=== PATIENT | male | born 1930 | race Caucasian/White ===

== ENCOUNTER → 2016-08-13 | Outpatient (CLI) | payer MEDICARE ==
[~2016-08-13] MED LIST: ACEB200C; ACET-2469 PO; ACET325T49 PO; ACYC2CRE; ASP81TEC; ATOR40TA70 PO; ATOR80TA; ATOR80TA PO; BUDE10.2 IH; CLOP75TA; COLC0.6T7 PO; CYAN10007 PO; D50KC; D50KC PO; DOXY-13; FOLI1TAB24 PO; FRSM40T PO; FURO20TA4; GABA-490 PO; GABA600T PO; GLIM2TAB; GUAI5SYR PO; GUAI600T43 PO; HYDR-3812 PO; INSU100C4; INSU100I10; INSU100I10 SQ; IPRA3AMP INH; MAGN400T6; MAGN400T6 PO; METH454P2 PO; MGX400T; MGX400T PO; NEBU-140 MC; NYST1000; OMEP20CA6 PO; OMG1KC PO; PNT40TEC PO; POLY119P5 PO; POTA20TA15 PO; PRED10TA22 PO; SENN1TAB27; SUPER BEET PO; TAMS0.4C2 PO; TMSL.4C PO; WARF2TAB PO; WARF2TAB8 PO; WARF4TAB7 PO; WARF4TAB9 PO; WARF5TAB PO; [UNRECOGNIZED DRUG - OTHER]
--- OUTSIDE RECORDS SUMMARY | 2016-08-13 13:26 | XMS REPORT | Continuity of Care Document ---
Author Author [facility] Organization [facility] Address Unknown Phone Unavailable Care Team Providers Care Construction Project Assistant Name Role Phone Nga Sky PCP [phone] Source Comments Some departments are not documenting in the electronic medical record. If you do not see the information that you expected, contact Release of Information in the Health Information Management department at [phone] for further assistance in locating additional records.[facility] Active Allergies and Adverse Reactions Allergen Noted Date Severity Reactions Comments Iodine 02/28/2015 High SYNCOPE Januvia 02/28/2015 Low SEE COMMENTS "Kidney function quit" Current Medications Prescription Sig. Disp. Refills Start End Date Status Date warfarin (COUMADIN) 4 mg Take 4 mg by mouth daily. Active tablet 5 days a week warfarin (COUMADIN) 2 mg Take 2 mg by mouth daily. Active tablet and . INSULIN Inject 36 Units into Active GLARGINE,HUM.REC.ANLOG area(s) as directed daily (LANTUS SOLOSTAR SC) with breakfast. atorvastatin (LIPITOR) 40 Take 40 mg by mouth Active mg tablet daily. furosemide (LASIX) 40 mg Take 40 mg by mouth Active tablet daily. 80 mg on and Sat. 40mg all other days potassium chloride SR Take 20 mEq by mouth Active (K-DUR) 20 mEq tablet daily. magnesium oxide (MAG-OX) Take 400 mg by mouth Active 400 mg tablet daily. DOCOSAHEXANOIC ACID/EPA Take by mouth daily. Active (FISH OIL PO) cholecalciferol (VITAMIN Take 1,000 Units by mouth Active D-3) 1,000 units tablet daily. omeprazole DR(+) Take 20 mg by mouth Active (PRILOSEC) 20 mg capsule daily. cyanocobalamin (VITAMIN Take 2,000 mcg by mouth Active B-12) 1,000 mcg tablet daily. enoxaparin (LOVENOX) 100 Inject 1 mg/kg into Active mg syrg area(s) as directed daily. 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 Social History Tobacco Use Types Packs/Day Years Used Date Current Some Day Smoker Smokeless Tobacco: Never Used Alcohol Use Drinks/Week oz/Week Comments No 0 Standard 0.0 drinks or equivalent Last Filed Vital Signs Vital Sign Reading Time Taken Blood Pressure 115/61 08/16/2015 10:12 AM THRESHING MACHINE OPERATOR Pulse 61 08/16/2015 10:12 AM THRESHING MACHINE OPERATOR Temperature 36.4 C (97.5 F) 08/16/2015 10:12 AM THRESHING MACHINE OPERATOR Respiratory Rate 18 08/16/2015 10:12 AM THRESHING MACHINE OPERATOR Height 1.829 m (6') 08/16/2015 10:12 AM THRESHING MACHINE OPERATOR Weight 95.255 kg (210 lb) 08/16/2015 10:12 AM THRESHING MACHINE OPERATOR Body Mass Index 28.47 08/16/2015 10:12 AM THRESHING MACHINE OPERATOR Oxygen Saturation 94% 08/16/2015 10:12 AM THRESHING MACHINE OPERATOR Plan of Care Health Maintenance Due Date Last Done Comments Physical (Comprehensive) 11/23/1937 Exam Pertussis Vaccine 11/23/1942 Tetanus Vaccine 11/23/1948 Dilated Eye Exam 11/23/1949 Foot Exam 11/23/1949 Hba1c 11/23/1949 Microalbumin 11/23/1949 Shingles Vaccine 1991 Prevnar/Pneumovax (#1) 11/23/1996 Influenza Vaccine 04/05/2016 Results from Last 3 Months Not on file
--- NOTE | 2016-08-13 17:28 | Diagnostic Imaging Report ---
Exam: 3 views of the left little finger. Indication: Fall. Findings: There is no fracture, dislocation or radiopaque foreign body seen. There is mild subchondral sclerotic change and small osteophyte formation at the distal interphalangeal joint noted. Impression: Mild degenerative changes. No fracture seen. Dictated by: Dictated on workstation # [id number]
== END ==
LOC: RAD 13:21
PROVIDERS: ATTEND Nurse Practitioner Family
DX: M79.645 Pain in left finger(s) (principal)
CPT/HCPCS: 73140

== ENCOUNTER → 2016-09-03 | Outpatient (CLI) | payer MEDICARE ==
--- OUTSIDE RECORDS SUMMARY | 2016-09-03 11:22 | XMS REPORT | Continuity of Care Document ---
Author Author [facility] Organization [facility] Address Unknown Phone Unavailable Care Team Providers Care Job Coach/Job Developer Name Role Phone Nga Sky PCP [phone] Source Comments Some departments are not documenting in the electronic medical record. If you do not see the information that you expected, contact Release of Information in the Health Information Management department at [phone] for further assistance in locating additional records.[facility] Active Allergies and Adverse Reactions Allergen Noted [...] 16 Active Problems Problem Noted Date Paraparesis ([facility] 07/19/2015 Myelopathy ([facility]) 07/19/2015 Abnormal MRI, thoracic spine 07/19/2015 Incontinence [...] Taken Blood Pressure 115/61 08/16/2015 10:12 AM ROLLING DOWN MACHINE OPERATOR Pulse 61 08/16/2015 10:12 AM ROLLING DOWN MACHINE OPERATOR Temperature 36.4 C (97.5 F) 08/16/2015 10:12 AM ROLLING DOWN MACHINE OPERATOR Respiratory Rate 18 08/16/2015 10:12 AM ROLLING DOWN MACHINE OPERATOR Height 1.829 m (6') 08/16/2015 10:12 AM ROLLING DOWN MACHINE OPERATOR Weight 95.255 kg (210 lb) 08/16/2015 10:12 AM ROLLING DOWN MACHINE OPERATOR Body Mass Index 28.47 08/16/2015 10:12 AM ROLLING DOWN MACHINE OPERATOR Oxygen Saturation 94% 08/16/2015 10:12 AM ROLLING DOWN MACHINE OPERATOR Plan of Care Health Maintenance Due Date Last Done Comments Physical (Comprehensive) 11/23/1937 Exam Pertussis Vaccine 11/23/1942 Tetanus Vaccine 11/23/1948 Dilated Eye Exam 11/23/1949 Foot Exam 11/23/1949 Hba1c 11/23/1949 Microalbumin 11/23/1949 Shingles Vaccine 1991 Prevnar/Pneumovax (#1) 11/23/1996 Influenza Vaccine 04/05/2016 Results from Last 3 Months Not on file
--- NOTE | 2016-09-03 14:23 | Diagnostic Imaging Report ---
INDICATION: Left shoulder pain. FINDINGS: The humeral head is in normal articulation within glenoid fossa. Articulating surfaces appear normal. AC joint is in good alignment. No significant degenerative change noted. There are no fractures. No soft tissue calcifications. IMPRESSION: No significant abnormalities noted of the left shoulder. Dictated by: Dictated on workstation # [id number]
== END ==
LOC: RAD 11:17
PROVIDERS: ATTEND Nurse Practitioner Family
DX: M25.512 Pain in left shoulder (principal)
CPT/HCPCS: 73030

== ENCOUNTER → 2016-09-05 | Outpatient (CLI) | payer MEDICARE ==
--- OUTSIDE RECORDS SUMMARY | 2016-09-05 11:42 | XMS REPORT | Continuity of Care Document ---
Author Author [facility] Organization [facility] Address Unknown Phone Unavailable Care Team Providers Care Manager Call Center Name Role Phone Nga Sky PCP [phone] Source Comments Some departments are not documenting in the electronic medical record. If you do not see the information that you expected, contact Release of Information in the Health Information Management department at [phone] for further assistance in locating additional records.[facility] Active Allergies and Adverse Reactions Allergen [...] 16 Active Problems Problem Noted Date Paraparesis ([facility]) 07/19/2015 Myelopathy ([facility]) 07/19/2015 Abnormal MRI, thoracic spine [...] Taken Blood Pressure 115/61 08/16/2015 10:12 AM SHIP BOAT OR BARGE MATE Pulse 61 08/16/2015 10:12 AM SHIP BOAT OR BARGE MATE Temperature 36.4 C (97.5 F) 08/16/2015 10:12 AM SHIP BOAT OR BARGE MATE Respiratory Rate 18 08/16/2015 10:12 AM SHIP BOAT OR BARGE MATE Height 1.829 m (6') 08/16/2015 10:12 AM SHIP BOAT OR BARGE MATE Weight 95.255 kg (210 lb) 08/16/2015 10:12 AM SHIP BOAT OR BARGE MATE Body Mass Index 28.47 08/16/2015 10:12 AM SHIP BOAT OR BARGE MATE Oxygen Saturation 94% 08/16/2015 10:12 AM SHIP BOAT OR BARGE MATE Plan of Care Health Maintenance Due Date Last Done Comments Physical (Comprehensive) 11/23/1937 Exam Pertussis Vaccine 11/23/1942 Tetanus Vaccine 11/23/1948 Dilated Eye Exam 11/23/1949 Foot Exam 11/23/1949 Hba1c 11/23/1949 Microalbumin 11/23/1949 Shingles Vaccine 1991 Prevnar/Pneumovax (#1) 11/23/1996 Influenza Vaccine 04/05/2016 Results from Last 3 Months Not on file
--- NOTE | 2016-09-05 13:40 | Diagnostic Imaging Report ---
PROCEDURE: MRI left upper extremity without contrast. TECHNIQUE: Multiplanar, multisequence non contrast-enhanced MRI of the left upper extremity was accomplished. INDICATION: Left shoulder pain. FINDINGS: There is no os acromiale or Hill-Sachs deformity. The acromioclavicular joint demonstrates osteoarthritic changes with superior small osteophytes. No significant inferior osteophytes are seen. The long head biceps tendon appears to be displaced anteriorly and medially with significant fluid around the biceps tendon sheath. It demonstrates increased signal also compatible with a tear. It is poorly defined proximally. The subscapular tendon demonstrates a tear of its deep fibers worse in the superior portion of the tendon. The supraspinatus tendon demonstrates a near full-thickness tear with minimal intact fibers seen distally. The deep fibers are retracted up to 3 cm from the insertion site. Posteriorly, the infraspinatus tendon demonstrates a partial tear. There is increased signal in the superior labrum probably degenerative. There is mild atrophy of the supraspinatus and subscapularis muscles. There is distention of the subcoracoid bursa compatible with bursitis. IMPRESSION: 1. High-grade partial tears in the rotator cuff tendons. 2. Partial tear in the long head biceps tendon with subluxation of the tendon medially into the area of the torn distal subscapular tendon. 3. Subcoracoid bursitis. Dictated by: Dictated on workstation # [id number]
== END ==
LOC: RAD 11:39
PROVIDERS: ATTEND Nurse Practitioner Family
DX: M25.512 Pain in left shoulder (principal)
CPT/HCPCS: 73221

== ENCOUNTER 2016-09-27 12:48 | Outpatient (RCR) | payer MEDICARE ==
[~2016-09-27 12:48] MED LIST changes: -ACET-2469 PO; -ACET325T49 PO; -ATOR40TA70 PO; -BUDE10.2 IH; -CYAN10007 PO; -FOLI1TAB24 PO; -GUAI5SYR PO; -GUAI600T43 PO; -HYDR-3812 PO; -IPRA3AMP INH; -METH454P2 PO; -NEBU-140 MC; -POLY119P5 PO; -PRED10TA22 PO; -SUPER BEET PO; -TAMS0.4C2 PO; -WARF2TAB8 PO; -WARF4TAB9 PO
--- OUTSIDE RECORDS SUMMARY | 2016-09-27 12:51 | XMS REPORT | Continuity of Care Document ---
Author Author [facility] Organization [facility] Address Unknown Phone Unavailable Care Team Providers Care Heel Sander Rubber Name Role Phone Nga Sky PCP [phone] Source Comments Some departments are not documenting in the electronic medical record. If you do not see the information that you expected, contact Release of Information in the Health Information Management department at [phone] for further assistance in locating additional records.[facility] Active Allergies and Adverse [...] Active Problems Problem Noted Date Paraparesis ([facility]) 07/19/2015 Myelopathy ([facility]) 07/19/2015 Abnormal MRI, thoracic spine 07/19/2015 Incontinence [...] Taken Blood Pressure 115/61 08/16/2015 10:12 AM ASSET PROTECTION ASSISTANT Pulse 61 08/16/2015 10:12 AM ASSET PROTECTION ASSISTANT Temperature 36.4 C (97.5 F) 08/16/2015 10:12 AM ASSET PROTECTION ASSISTANT Respiratory Rate 18 08/16/2015 10:12 AM ASSET PROTECTION ASSISTANT Height 1.829 m (6') 08/16/2015 10:12 AM ASSET PROTECTION ASSISTANT Weight 95.255 kg (210 lb) 08/16/2015 10:12 AM ASSET PROTECTION ASSISTANT Body Mass Index 28.47 08/16/2015 10:12 AM ASSET PROTECTION ASSISTANT Oxygen Saturation 94% 08/16/2015 10:12 AM ASSET PROTECTION ASSISTANT Plan of Care Health Maintenance Due Date Last Done Comments Physical (Comprehensive) 11/23/1937 Exam Pertussis Vaccine 11/23/1942 Tetanus Vaccine 11/23/1948 Dilated Eye Exam 11/23/1949 Foot Exam 11/23/1949 Hba1c 11/23/1949 Microalbumin 11/23/1949 Shingles Vaccine 1991 Prevnar/Pneumovax (#1) 11/23/1996 Influenza Vaccine 04/05/2016 Results from Last 3 Months Not on file
[2016-10-30] MEDS ORDERED: ACET325T49 PO (14:12)
[2016-10-30] MEDS ORDERED: ATOR40TA70 PO (14:12)
[2016-10-30] MEDS ORDERED: TAMS0.4C2 PO (14:12)
[2016-10-30] MEDS ORDERED: CYAN10007 PO (14:12)
[2016-10-30] MEDS ORDERED: FOLI1TAB24 PO (14:12)
[2016-10-30] MEDS ORDERED: METH454P2 PO (14:12)
[2016-10-30] MEDS ORDERED: BUDE10.2 IH (14:12)
[2016-10-30] MEDS ORDERED: ACET-2469 PO (14:12)
[2016-10-30] MEDS ORDERED: POLY119P5 PO (14:12)
[2016-10-30] MEDS ORDERED: SUPER BEET PO (14:12)
[2016-10-30] MEDS ORDERED: GUAI5SYR PO (14:25)
[2016-10-30] MEDS ORDERED: HYDR-3812 PO (14:25)
[2016-10-30] MEDS ORDERED: GUAI600T43 PO (14:25)
[2016-10-30] MEDS ORDERED: WARF2TAB8 PO (14:25)
[2016-10-30] MEDS ORDERED: WARF4TAB9 PO (14:25)
[2016-11-05] MEDS ORDERED: NEBU-140 MC (09:34)
[2016-11-05] MEDS ORDERED: PRED10TA22 PO (09:34)
[2016-11-05] MEDS ORDERED: IPRA3AMP INH (09:34)
== END 2016-12-26 | disposition home or self-care (01) ==
LOC: ONC 12:48
PROVIDERS: ATTEND Internal Medicine Hematology & Oncology
DX: C81.10 Nodular sclerosis Hodgkin lymphoma, unspecified site (principal); Z23 Encounter for immunization; G62.9 Polyneuropathy, unspecified; I48.91 Unspecified atrial fibrillation; E11.22 Type 2 diabetes mellitus with diabetic chronic kidney disease; N18.3 Chronic kidney disease, stage 3 (moderate); Z92.21 Personal history of antineoplastic chemotherapy; Z79.899 Other long term (current) drug therapy
CPT/HCPCS: 99213

== ENCOUNTER → 2016-09-27 | Outpatient (CLI) | payer MEDICARE ==
--- OUTSIDE RECORDS SUMMARY | 2016-09-27 11:22 | XMS REPORT | Continuity of Care Document ---
Author Author [facility] Organization [facility] Address Unknown Phone Unavailable Care Team Providers Care Substation Supervisor Name Role Phone Nga Sky PCP [phone] Source Comments Some departments are not documenting in the electronic medical record. If you do not see the information that you expected, contact Release of Information in the Health Information Management department at [phone] for further assistance in locating additional records.[facility] Active Allergies and Adverse Reactions Allergen [...] Active Problems Problem Noted Date Paraparesis ([facility]) 07/19/2015 Myelopathy ([facility]) 07/19/2015 Abnormal MRI, thoracic spine 07/19/2015 Incontinence [...] Taken Blood Pressure 115/61 08/16/2015 10:12 AM OUTSIDE SALES REPRESENTATIVE Pulse 61 08/16/2015 10:12 AM OUTSIDE SALES REPRESENTATIVE Temperature 36.4 C (97.5 F) 08/16/2015 10:12 AM OUTSIDE SALES REPRESENTATIVE Respiratory Rate 18 08/16/2015 10:12 AM OUTSIDE SALES REPRESENTATIVE Height 1.829 m (6') 08/16/2015 10:12 AM OUTSIDE SALES REPRESENTATIVE Weight 95.255 kg (210 lb) 08/16/2015 10:12 AM OUTSIDE SALES REPRESENTATIVE Body Mass Index 28.47 08/16/2015 10:12 AM OUTSIDE SALES REPRESENTATIVE Oxygen Saturation 94% 08/16/2015 10:12 AM OUTSIDE SALES REPRESENTATIVE Plan of Care Health Maintenance Due Date Last Done Comments Physical (Comprehensive) 11/23/1937 Exam Pertussis Vaccine 11/23/1942 Tetanus Vaccine 11/23/1948 Dilated Eye Exam 11/23/1949 Foot Exam 11/23/1949 Hba1c 11/23/1949 Microalbumin 11/23/1949 Shingles Vaccine 1991 Prevnar/Pneumovax (#1) 11/23/1996 Influenza Vaccine 04/05/2016 Results from Last 3 Months Not on file
--- NOTE | 2016-09-27 12:59 | Diagnostic Imaging Report ---
PA and lateral chest at 11:40 a.m. INDICATION: Shortness of breath. FINDINGS: The heart size is within normal limits and stable when compared to 06/22/2016. The sternotomy wires and surgical clips noted previously are again evident and no different. The previous study did note minimal infiltrate in the left infrahilar region. That abnormal density has resolved. However, there is now a small area of increased density in the right infrahilar region on the PA view. This finding is difficult to identify with certainty on the lateral view and it is possible that this density could be secondary to superimposition. Even so, there may be an element of acute pneumonia/atelectasis in this area. Clinical follow-up is recommended. The lungs are otherwise clear. There is still no sign of a pleural effusion. Mediastinum is not widened. The osseous structures are intact. IMPRESSION: 1. There is a question of a small area of acute pneumonia/atelectasis in the right infrahilar region. Clinical follow-up is recommended. 2. There is no acute cardiopulmonary abnormality noted otherwise. Dictated by: Dictated on workstation # [id number]
== END ==
LOC: RAD 11:17
PROVIDERS: ATTEND Family Medicine
DX: R06.02 Shortness of breath (principal)
CPT/HCPCS: 71020

== ENCOUNTER 2016-10-04 21:08 | Emergency (ER) | payer MEDICARE ==
[~2016-10-04] VITALS: Ht 182.9 cm; Wt 113.4 kg
--- OUTSIDE RECORDS SUMMARY | 2016-10-04 21:13 | XMS REPORT | Continuity of Care Document ---
Author Author [facility] Organization [facility] Address Unknown Phone Unavailable Care Team Providers Care Sheriff'S Officer Name Role Phone Nga Sky PCP [phone] Source Comments Some departments are not documenting in the electronic medical record. If you do not see the information that you expected, contact Release of Information in the Health Information Management department at [phone] for further assistance in locating additional records.[facility] Active Allergies and Adverse Reactions Allergen [...] Active Problems Problem Noted Date Paraparesis ([facility]) 07/19/2015 Myelopathy ([facility]) 07/19/2015 Abnormal MRI, thoracic spine 07/19/2015 Incontinence [...] Taken Blood Pressure 115/61 08/16/2015 10:12 AM HUMAN RESOURCE ADVISER Pulse 61 08/16/2015 10:12 AM HUMAN RESOURCE ADVISER Temperature 36.4 C (97.5 F) 08/16/2015 10:12 AM HUMAN RESOURCE ADVISER Respiratory Rate 18 08/16/2015 10:12 AM HUMAN RESOURCE ADVISER Height 1.829 m (6') 08/16/2015 10:12 AM HUMAN RESOURCE ADVISER Weight 95.255 kg (210 lb) 08/16/2015 10:12 AM HUMAN RESOURCE ADVISER Body Mass Index 28.47 08/16/2015 10:12 AM HUMAN RESOURCE ADVISER Oxygen Saturation 94% 08/16/2015 10:12 AM HUMAN RESOURCE ADVISER Plan of Care Health Maintenance Due Date Last Done Comments Physical (Comprehensive) 11/23/1937 Exam Pertussis Vaccine 11/23/1942 Tetanus Vaccine 11/23/1948 Dilated Eye Exam 11/23/1949 Foot Exam 11/23/1949 Hba1c 11/23/1949 Microalbumin 11/23/1949 Shingles Vaccine 1991 Prevnar/Pneumovax (#1) 11/23/1996 Influenza Vaccine 04/05/2016 Results from Last 3 Months Not on file
[2016-10-04 21:38] LABS: BASOPHILS # (AUTO) 0.1 10^3/uL (0.0-0.1); BASOPHILS % (AUTO) 1 % (0-10); EOSINOPHILS # (AUTO) 0.5 10^3/uL (0.0-0.3); EOSINOPHILS % (AUTO) 6 % (0-10); LYMPHOCYTES # (AUTO) 2.1 X 10^3 (1.0-4.0); LYMPHOCYTES % (AUTO) 22 % (12-44); MEAN CORPUSCULAR HEMOGLOBIN 32 PG (25-34); MEAN CORPUSCULAR HGB CONC 33 G/DL (32-36); MEAN CORPUSCULAR VOLUME 99 FL (80-99); MEAN PLATELET VOLUME 10.5 FL (7.4-10.4); MONOCYTES # (AUTO) 1.4 X 10^3 (0.0-1.0); MONOCYTES % (AUTO) 14 % (0-12); NEUTROPHILS # (AUTO) 5.4 X 10^3 (1.8-7.8); NEUTROPHILS % (AUTO) 58 % (42-75); PLATELET COUNT 197 10^3/uL (130-400); RED CELL DISTRIBUTION WIDTH 14.9 % (10.0-14.5); WHITE BLOOD COUNT 9.4 10^3/uL (4.3-11.0)
[2016-10-04 21:46] LABS: INR 2.8 (0.8-1.4); PROTHROMBIN TIME PATIENT 29.3 SEC (12.2-14.7)
[2016-10-04 21:57] LABS: ALANINE AMINOTRANSFERASE 19 U/L (0-55); ALBUMIN 3.9 G/DL (3.2-4.5); ANION GAP 13 MMOL/L (5-14); ASPARTATE AMINO TRANSFERASE 21 U/L (5-34); BILIRUBIN,TOTAL 1.3 MG/DL (0.1-1.0); BLOOD UREA NITROGEN 24 MG/DL (7-18); BUN/CREATININE RATIO 21; CALCIUM 8.6 MG/DL (8.5-10.1); CARBON DIOXIDE 21 MMOL/L (21-32); CHLORIDE 103 MMOL/L (98-107); CREATININE SERUM 1.12 MG/DL (0.60-1.30); GFR ESTIMATED > 60; GLUCOSE 141 MG/DL (70-105); POTASSIUM 4.5 MMOL/L (3.6-5.0); SODIUM 137 MMOL/L (135-145); TOTAL PROTEIN 6.9 G/DL (6.4-8.2)
[2016-10-04 23:03] LABS: BILIRUBIN,URINE NEGATIVE (NEGATIVE); KETONES,URINE NEGATIVE (NEGATIVE); LEUKOCYTE ESTERASE ,URINE NEGATIVE (NEGATIVE); NITRITE,URINE NEGATIVE (NEGATIVE); PH,URINE 6.5 (5-9); PROTEIN,URINE 1+ (NEGATIVE); UROBILINOGEN,URINE NORMAL (NORMAL)
[2016-10-04 23:19] LABS: SQUAMOUS EPITHELIAL CELL,UR RARE /HPF
--- NOTE | 2016-10-05 00:18 | ED Fall/Injury ---
General Chief Complaint: Trauma-Non Activation Stated Complaint: FALL Nursing Triage Note: PT FALL AT [facility] [place] [facility]. SEE TRAUMA ASSESSMENT Source: patient Exam Limitations: no limitations History of Present Illness Time seen by provider: 21:10 Initial Comments This 85-year-old gentleman presents to the emergency room from the [facility] where he fell. 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 He walks with a walker but has significant neurologic deficits in the lower extremities, especially sensory deficit. Tonight he lost his balance and struck the right side of his head. He has a small knot on the right parietal scalp. He requested transfer to emergency room because he is concerned about possible bleed on Coumadin. He did not lose consciousness and he has no symptoms of concussion at this time. Patient also complains of left hip pain which is subacute from a fall about 2 weeks ago. He has significant bruising on the left hip. Location [facility] Occurred[facility] Occurred: just prior to arrival Injuries/Pain Location: head Loss of Consciousness: no loss of consciousness Allergies and Home Medications Allergies Coded Allergies: iodine (Unverified Allergy, Mild, 01/06/09) sitagliptin (Unverified Allergy, Mild, 02/27/09) Home Medications Atorvastatin Calcium 80 Mg Tablet 80 MG PO HS (Reported) Colchicine 0.6 Mg Tablet 0.6 MG PO DAILY PRN PRN GOUT PAIN (Reported) Ergocalciferol 50,000 Unit Capsule 50,000 UNIT PO SATURDAY @0900 (Reported) Furosemide 40 Mg Tab 40 MG PO DAILY (Reported) Gabapentin 600 Mg Tablet 600 MG PO BID (Reported) Insulin Glargine,Hum.rec.anlog 300 Unit/3 Ml Insuln.pen 36 UNITS SQ DAILY ( Reported) Magnesium Oxide 400 Mg Tab 400 MG PO DAILY (Reported) [place]ma 3 Polyunsat Fatty Acids 1,000 Mg Cap 1,000 MG PO DAILY (Reported) Omeprazole 20 Mg Capsule.dr 20 MG PO DAILY (Reported) Potassium Chloride 20 Meq Tab.prt.sr 20 MEQ PO DAILY (Reported) Tamsulosin Hcl 0.4 Mg Cap.er.24h 0.4 MG PO DAILY (Reported) Warfarin Sodium 4 Mg Tablet 2 MG PO , @ HS (Reported) TAKES 1/2 (4MG) TABLET Warfarin Sodium 4 Mg Tablet 4 MG PO CLEANING,MO,WE,FR,SA @HS (Reported) Constitutional: no symptoms reported Eyes: No Symptoms Reported Ears, Nose, Mouth, Throat: no symptoms reported Respiratory: no symptoms reported Cardiovascular: no symptoms reported Gastrointestinal: no symptoms reported Genitourinary: no symptoms reported Musculoskeletal: see HPI Skin: see HPI Psychiatric/Neurological: See HPI Past Jbuewrj-Lynxef-Ofxtxa Hx Patient Social History Alcohol Use: Denies Use Recreational Drug Use: No Smoking Status: Never a Smoker Former Smoker/When Quit: Nov 03, 2004 2nd Hand Smoke Exposure: No Recent Foreign Travel: No Contact w/Someone Who Travel: No Recent Infectious Disease Expo: No Recent Hopitalizations: Yes Immunizations Up To Date Tetanus Booster (TDap): Less than 5yrs Date of Pneumonia Vaccine: Jun 21, 2011 Date of Influenza Vaccine: Apr 20, 2014 Surgeries HX Surgeries: Yes (ABD AORTIC ANEURYSYM graft) Surgeries: CABG, Vasectomy Respiratory Hx Respiratory Disorders: Yes (COPD) Respiratory Disorders: Sleep Apnea, COPD Cardiovascular Hx Cardiac Disorders: Yes (QUAD BYPASS, AAA) Cardiac Disorders: Atrial Fibrillation, Chronic Edema/Swelling, Coronary Artery Disease, High Cholesterol, Hypertension, Peripheral Vascular Neurological Hx Neurological Disorders: Yes (NEUROPATHY BILAT. FEET) Neurological Disorders: Neuropathy, Spinal Cord Injury (History of transverse myelitis with significant lower extremity deficits) Reproductive System Hx Reproductive Disorders: No Sexually Transmitted Disease: No HIV/AIDS: No Genitourinary Hx Genitourinary Disorders: Yes Genitourinary Disorders: Renal Failure Gastrointestinal Hx Gastrointestinal Disorders: Yes Gastrointestinal Disorders: Gastroesophageal Reflux, Diverticulosis Musculoskeletal Hx Musculoskeletal Disorders: Yes Musculoskeletal Disorders: Arthritis, Gout Endocrine Hx Endocrine Disorders: Yes Endocrine Disorders: Diabetes, Insulin dep HEENT HX ENT Disorders: Yes Loss of Vision: Denies Hearing Impairment: Hard of Hearing Cancer Hx Cancer: Yes Cancer: Lymphoma Psychosocial Hx Psychiatric Problems: No Integumentary HX Skin/Integumentary Disorder: No Blood Transfusions Hx Blood Disorders: No Adverse Reaction to a Blood Tr: No Family Medical History Significant Family History: Heart Disease, Hypertension Physical Exam Vital Signs Vital Sign - Last 12Hours 10/04/16 10/05/16 21:08 01:06 Temp 97.2 Pulse 79 Resp 20 B/P 125/78 Pulse Ox 99 O2 Delivery Room Air O2 Flow Rate 3 Capillary Refill : Less Than 3 Seconds General Appearance: WD/WN no apparent distress HEENT: PERRL/EOMI other (Contusion with swelling and ecchymosis on the right parietal scalp) Neck: non-tender full range of motion supple normal inspection Cardiovascular: regular rate, rhythm no edema no murmur Respiratory: lungs clear normal breath sounds no respiratory distress no accessory muscle use Gastrointestinal: normal bowel sounds non tender soft Extremities: other (Mild pedal edema. Decreased sensation from the knees down. Tenderness and significant dark ecchymosis over the left hip. 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 as tested alert normal mood/affect oriented x 3 motor weakness (Lower extremities bilaterally, chronic) sensory deficit (Lower extremities bilaterally, chronic) Skin: normal color warm/dry ecchymosis [place] Coma Score Best Eye Response: (4) Open Spontaneously Best Verbal Response: (5) Oriented Best Motor Response: (6) Obeys Commands Zahida Total: 15 Progress/Results/Core Measures Results/Orders Lab Results Laboratory Tests Test 10/04/16 21:28 10/04/16 22:54 Range/Units Activated Partial Thromboplast Time 48 H 24-35 SEC Alanine Aminotransferase (ALT/SGPT) 19 0-55 U/L Albumin 3.9 3.2-4.5 G/DL Alkaline Phosphatase 95 40-136 U/L Anion Gap 13 5-14 MMOL/L Aspartate Amino Transf (AST/SGOT) 21 5-34 U/L BUN/Creatinine Ratio 21 Basophils # (Auto) 0.1 0.0-0.1 10^3/uL Basophils (%) (Auto) 1 0-10 % Blood Urea Nitrogen 24 H 7-18 MG/DL Calcium Level 8.6 8.5-10.1 MG/DL Carbon Dioxide Level 21 21-32 MMOL/L Chloride Level 103 98-107 MMOL/L Creatinine 1.12 0.60-1.30 MG/DL Eosinophils # (Auto) 0.5 H 0.0-0.3 10^3/uL Eosinophils (%) (Auto) 6 0-10 % Estimat Glomerular Filtration Rate > 60 Glucose Level 141 H 70-105 MG/DL Hematocrit 34 L 40-54 % Hemoglobin 11.0 L 13.3-17.7 G/DL INR Comment 2.8 H 0.8-1.4 Lymphocytes # (Auto) 2.1 1.0-4.0 X 10^3 Lymphocytes (%) (Auto) 22 12-44 % Mean Corpuscular Hemoglobin 32 25-34 PG Mean Corpuscular Hemoglobin Concent 33 32-36 G/DL Mean Corpuscular Volume 99 80-99 FL Mean Platelet Volume 10.5 H 7.4-10.4 FL Monocytes # (Auto) 1.4 H 0.0-1.0 X 10^3 Monocytes (%) (Auto) 14 H 0-12 % Neutrophils # (Auto) 5.4 1.8-7.8 X 10^3 Neutrophils (%) (Auto) 58 42-75 % Platelet Count 197 130-400 10^3/uL Potassium Level 4.5 3.6-5.0 MMOL/L Prothrombin Time 29.3 H 12.2-14.7 SEC Red Blood Count 3.40 L 4.35-5.85 10^6/uL Red Cell Distribution Width 14.9 H 10.0-14.5 % Sodium Level 137 135-145 MMOL/L Total Bilirubin 1.3 H 0.1-1.0 MG/DL Total Protein 6.9 6.4-8.2 G/DL White Blood Count 9.4 4.3-11.0 10^3/uL Urine Bacteria NONE /HPF Urine Bilirubin NEGATIVE NEGATIVE Urine Casts NONE /LPF Urine Clarity SLIGHTLY CLOUDY Urine Color YELLOW Urine Crystals NONE /LPF Urine Culture Indicated NO Urine Glucose (UA) NEGATIVE NEGATIVE Urine Ketones NEGATIVE NEGATIVE Urine Leukocyte Esterase NEGATIVE NEGATIVE Urine Mucus NEGATIVE /LPF Urine Nitrite NEGATIVE NEGATIVE Urine Protein 1+ H NEGATIVE Urine RBC NONE /HPF Urine RBC (Auto) NEGATIVE NEGATIVE Urine Specific [place] 1.015 L 1.016-1.022 Urine Squamous Epithelial Cells RARE /HPF Urine Urobilinogen NORMAL NORMAL MG/DL Urine WBC NONE /HPF Urine pH 6.5 5-9 My Orders Orders-KALANI MCKINNON MD Cbc With Automated Diff (10/04/16 21:15) Comprehensive Metabolic Panel (10/04/16 21:15) Protime With Inr (10/04/16 21:15) Partial Thromboplastin Time (10/04/16 21:15) Ua Culture If Indicated (10/04/16 21:15) Saline Lock/Iv-Start (10/04/16 21:15) Ct Head/Cervical Spine Wo (10/04/16 21:15) Ct Pelvis Wo (10/04/16 21:15) Femur, Left, 2 Views (10/05/16 00:01) Vital Signs/I&O Vital Sign - Last 12Hours 10/04/16 10/05/16 21:08 01:06 Temp 97.2 Pulse 79 64 Resp 20 18 B/P 125/78 Pulse Ox 99 98 O2 Delivery Room Air O2 Flow Rate 3 Blood Pressure Mean: 94 Progress Note : Progress Note CT of the head, cervical spine, and pelvis were all unremarkable for fractures. However, there was a hematoma noted over the left hip. Active bleeding could not be determined without contrast but given the history of patient being subacute (2 weeks old), active bleeding was not suspected. Since the hematoma was incompletely visualized, a femur x-ray was obtained to ensure there was no fracture distal to the visualized hematoma. Diagnostic Imaging Diagonstic Imaging: CT Plain Films/CT/US/NM/MRI: c-spine, head Comments CT head and C-spine viewed by me and [facility] report reviewed. CT of the head demonstrated no acute findings. CT of the C-spine demonstrated grade 1 anterolisthesis of C3 on C4 and C4 on C5. No acute injury identified. Diagonstic Imaging: CT Plain Films/CT/US/NM/MRI: pelvis Comments CT pelvis viewed by me and report from [facility] reviewed. There is osteopenia but no evidence of acute fracture. There is a hematoma in the soft tissue lateral to the proximal aspect of the left femur which is only partially imaged. Visualized portions of the hematoma are 5.7 x 2.5 x 8.5 cm. Evaluation for active bleeding cannot be performed without IV contrast. However , the left hip injury is subacute based on patient history, and I do not have suspicion for active bleeding.. Departure Impression Impression: Primary Impression: Fall on same level Qualified Code: W18.30XA - Fall on same level, unspecified, initial encounter Additional Impressions: Minor head injury Qualified Code: S00.90XA - Unspecified superficial injury of unspecified part of head, initial encounter Hip hematoma, left Qualified Code: S70.02XA - Contusion of left hip, initial encounter Anticoagulant long-term use Disposition: 01 HOME, SELF-CARE Condition: Stable Departure-Patient Inst. Decision time for Depature: 00:30 Referrals: KELLY BEDOLLA MD (PCP/Family) Primary Care Physician Patient Instructions: HEMATOMA Add. Discharge Instructions: Return to care if symptoms worsen. Please provide assistive devices and environmental precautions to minimize fall risk. All discharge instructions reviewed with patient and/or family. Voiced understanding. KALANI MCKINNON MD Oct 05, 2016 00:18
[2016-10-05 01:06] VITALS: BP 126/71
--- NOTE | 2016-10-05 06:11 | Diagnostic Imaging Report ---
PROCEDURE: CT head and CT cervical spine without contrast. TECHNIQUE: Multiple contiguous axial images were obtained through the brain and cervical spine without the use of intravenous contrast. Sagittal and coronal reformations through the cervical spine were then performed. INDICATION: Fall with head pain. Study compared 11/07/2014. CT head: Chronic cerebral cortical atrophy, old lacunar infarcts and periventricular white matter small vessel sequelae as well as atherosclerotic vascular calcifications all stable and chronic. No appreciable calvarial fracture deformity. No abnormal extra-axial fluid collection and no evidence for hemorrhage. No focal or generalized edema. Orbits and paranasal sinuses nonacute. CT cervical spine: Comparison is limited to non-reformatted axial soft tissue neck CT performed in 2010. There is grade 1 anterolisthesis C3 on C4 and C4 on C5 of about 3 mm magnitude. There is nova-cervical spondylosis most profoundly at C5-C6, C6-C7 and C7-T1 levels. There is hypertrophic facet arthrosis as a chronic finding asymmetric greater left than right most advanced at the malaligned C3-C4 and C4-C5 levels. Some ossification of the ligamentum nuchae chronic at the lower cervical levels. No paravertebral hemorrhage and no cervical fracture is identified. There is carotid atherosclerotic vascular calcification. When comparison made with the prior exam, no obvious interval change. IMPRESSION: CT head: Stable chronic senescent change. No hemorrhage or fracture deformity. CT cervical spine: Spondylosis facet arthrosis and grade 1 listhesis but no fracture or dislocation identified. Agree with preliminary. Dictated by: Dictated on workstation # [id number]
--- NOTE | 2016-10-05 06:34 | Diagnostic Imaging Report ---
PROCEDURE: CT pelvis without contrast. TECHNIQUE: Multiple contiguous axial images were obtained through the pelvis without the use of intravenous contrast. Sagittal and coronal reformations were performed. INDICATION: Fall. Pain. FINDINGS: Bony demineralization is present which not only increases the risk of fracture but can make nondisplaced injuries imperceptible at CT and radiographs. No fracture deformities could be identified. Subcutaneous hematoma projects lateral to the greater trochanter of the left femur measuring AP dimension of 6 cm and at least 3 cm transverse. It extends lateral to the fojyj-ow-zavg. An appreciable fracture could not be identified. There is some asymmetry and fullness in the left-sided gluteal musculature likely reflective of some gluteal intramuscular dissecting hematoma. Lower lumbar spine and lumbosacral junction reveal chronic degenerative change. No visualized sacral fracture deformity. No SI joint diastasis. No symphyseal diastasis. The superior and inferior pubic shane intact. There are atherosclerotic vascular calcifications. No pelvic free fluid or pelvic extraperitoneal hematoma. No mass or adenopathy. The unopacified urinary bladder unremarkable. There are noninflamed diverticula of the sigmoid. IMPRESSION: Subcutaneous hematoma lateral to the proximal left femur likely left gluteal intramuscular hematoma. Bony demineralization without an appreciable fracture. No intra-or extraperitoneal pelvic hemorrhage. Spondylosis and degenerative changes without joint diastasis. Agree with the preliminary. Dictated by: Dictated on workstation # [id number]
--- NOTE | 2016-10-05 07:17 | Diagnostic Imaging Report ---
INDICATION: Fall. Soreness, pain. FINDINGS: Swelling lateral to the proximal femur is present; however, a fracture cannot be identified. Extensive atherosclerotic vascular calcifications noted. IMPRESSION: Lateral swelling but no visualized fracture. Dictated by: Dictated on workstation # [id number]
== END 2016-10-05 01:06 | disposition home or self-care (01) ==
LOC: EDUNIT# 21:08 → ER 21:10
DX: S00.03XA Contusion of scalp, initial encounter (principal); S70.02XA Contusion of left hip, initial encounter; G37.3 Acute transverse myelitis in demyelinating disease of central nervous system; M47.812 Spondylosis without myelopathy or radiculopathy, cervical region; M47.817 Spondylosis without myelopathy or radiculopathy, lumbosacral region; M85.89 Other specified disorders of bone density and structure, multiple sites; G62.9 Polyneuropathy, unspecified; I25.10 Atherosclerotic heart disease of native coronary artery without angina pectoris; I10 Essential (primary) hypertension; Z79.4 Long term (current) use of insulin; Z79.899 Other long term (current) drug therapy; Z79.01 Long term (current) use of anticoagulants; Z95.1 Presence of aortocoronary bypass graft; Z95.828 Presence of other vascular implants and grafts; W01.0XXA Fall on same level from slipping, tripping and stumbling without subsequent striking against object, initial encounter; Y92.129 Unspecified place in nursing home as the place of occurrence of the external cause; R29.6 Repeated falls; Y99.8 Other external cause status
CPT/HCPCS: 36415; 70450; 72125; 72192; 73552; 80053; 81000; 85025; 85610; 85730

== ENCOUNTER → 2016-10-08 | Outpatient (CLI) | payer MEDICARE ==
[~2016-10-08] MED LIST changes: +ACET-2469 PO; +ACET325T49 PO; +ATOR40TA70 PO; +BUDE10.2 IH; +CYAN10007 PO; +FOLI1TAB24 PO; +GUAI5SYR PO; +GUAI600T43 PO; +HYDR-3812 PO; +IPRA3AMP INH; +METH454P2 PO; +NEBU-140 MC; +POLY119P5 PO; +PRED10TA22 PO; +SUPER BEET PO; +TAMS0.4C2 PO; +WARF2TAB8 PO; +WARF4TAB9 PO
--- OUTSIDE RECORDS SUMMARY | 2016-10-08 11:22 | XMS REPORT | Continuity of Care Document ---
Author Author [facility] Organization [facility] Address Unknown Phone Unavailable Care Team Providers Care Team Sports Sales Associate Name Role Phone Nga Sky PCP [phone] Source Comments Some departments are not documenting in the electronic medical record. If you do not see the information that you expected, contact Release of Information in the Health Information Management department at [phone] for further assistance in locating additional records.[facility] Active Allergies and Adverse Reactions Allergen [...] Active Problems Problem Noted Date Paraparesis ([facility]) 07/19/2015 Myelopathy ([facility]) 07/19/2015 Abnormal MRI, thoracic spine 07/19/2015 [...] Taken Blood Pressure 115/61 08/16/2015 10:12 AM [employer] Pulse 61 08/16/2015 10:12 AM [employer] Temperature 36.4 C (97.5 F) 08/16/2015 10:12 AM [employer] Respiratory Rate 18 08/16/2015 10:12 AM [employer] Height 1.829 m (6') 08/16/2015 10:12 AM [employer] Weight 95.255 kg (210 lb) 08/16/2015 10:12 AM [employer] Body Mass Index 28.47 08/16/2015 10:12 AM [employer] Oxygen Saturation 94% 08/16/2015 10:12 AM [employer] Plan of Care Health Maintenance Due Date Last Done Comments Physical (Comprehensive) 11/23/1938 Exam Pertussis Vaccine 11/23/1942 Tetanus Vaccine 11/23/1948 Dilated Eye Exam 11/23/1949 Foot Exam 11/23/1949 Hba1c 11/23/1949 Microalbumin 11/23/1949 Shingles Vaccine 1991 Prevnar/Pneumovax (#1) 11/23/1996 Influenza Vaccine 04/05/2016 Results from Last 3 Months Not on file
--- NOTE | 2016-10-08 17:42 | Diagnostic Imaging Report ---
Left shoulder at 11:45 a.m. INDICATION: Injury, arm pain. Three views were obtained. FINDINGS: There is no fracture, dislocation or acute bony abnormality evident. There is moderate degenerative disease of the glenohumeral joint and the acromioclavicular joint. The soft tissues are unremarkable. When compared to the previous exam of , there does not appear to have been any significant change. On the AP view, there is a small 5 mm metallic density overlying the upper thoracic spine. This is also evident on the other two projections. The precise location of this finding is not certain. In reviewing the previous CT head and cervical spine exam of 10/04/2016, this radiopaque density was not clearly visualized. Radiopaque density was not visualized on the prior plain film examination of the left shoulder either. Consequently I suspect that it is extraneous to the patient. Even so, if MRI is contemplated for further evaluation of the left shoulder joint, then AP and lateral view of the neck would be recommended to assure that this metallic density is not present in the soft tissues. IMPRESSION: 1. There is no evidence for an acute bony abnormality. 2. If there is clinical concern regarding an injury to the rotator cuff or labrum, then MRI would be recommended for further evaluation. However, a followup AP and lateral view of the neck should be obtained prior to the MR exam to ensure that the radiopaque density seen overlying the thoracic spine on this exam is no longer evident. Dictated by: Dictated on workstation # [id number]
== END ==
LOC: RAD 11:18
PROVIDERS: ATTEND Nurse Practitioner Family
DX: M25.512 Pain in left shoulder (principal)
CPT/HCPCS: 73030

== ENCOUNTER 2016-10-30 08:04 | Inpatient (IN) | payer MEDICARE ==
[~2016-10-30] VITALS: Ht 182.9 cm; Wt 92.2 kg
[~2016-10-30 08:04] MED LIST changes: -ACET-2469 PO; -ACET325T49 PO; -ATOR40TA70 PO; -BUDE10.2 IH; -CYAN10007 PO; -FOLI1TAB24 PO; -GUAI5SYR PO; -GUAI600T43 PO; -HYDR-3812 PO; -IPRA3AMP INH; -METH454P2 PO; -NEBU-140 MC; -POLY119P5 PO; -PRED10TA22 PO; -SUPER BEET PO; -TAMS0.4C2 PO; -WARF2TAB8 PO; -WARF4TAB9 PO
[2016-10-30] MEDS ORDERED: RT-ALBUTEROL SULF 2.5 MG/3 ML PRE-MIX VIAL INH STA (08:14)
[2016-10-30] MEDS ORDERED: ACETAMINOPHEN 500 MG TAB (TYLENOL) PO PRN (08:15)
[2016-10-30 08:26] LABS: BASOPHILS # (AUTO) 0.1 10^3/uL (0.0-0.1); BASOPHILS % (AUTO) 1 % (0-10); EOSINOPHILS # (AUTO) 0.3 10^3/uL (0.0-0.3); EOSINOPHILS % (AUTO) 5 % (0-10); LYMPHOCYTES # (AUTO) 1.1 X 10^3 (1.0-4.0); LYMPHOCYTES % (AUTO) 17 % (12-44); MEAN CORPUSCULAR HEMOGLOBIN 32 PG (25-34); MEAN CORPUSCULAR HGB CONC 31 G/DL (32-36); MEAN CORPUSCULAR VOLUME 104 FL (80-99); MEAN PLATELET VOLUME 10.6 FL (7.4-10.4); MONOCYTES # (AUTO) 1.2 X 10^3 (0.0-1.0); MONOCYTES % (AUTO) 19 % (0-12); NEUTROPHILS # (AUTO) 3.7 X 10^3 (1.8-7.8); NEUTROPHILS % (AUTO) 58 % (42-75); PLATELET COUNT 158 10^3/uL (130-400); RED CELL DISTRIBUTION WIDTH 17.4 % (10.0-14.5); WHITE BLOOD COUNT 6.4 10^3/uL (4.3-11.0)
[2016-10-30 08:44] LABS: BILIRUBIN,TOTAL 2.2 MG/DL (0.1-1.0); CALCIUM 8.8 MG/DL (8.5-10.1); CREATININE SERUM 1.28 MG/DL (0.60-1.30); POTASSIUM 4.4 MMOL/L (3.6-5.0); TOTAL PROTEIN 6.7 G/DL (6.4-8.2)
[2016-10-30 08:47] LABS: ANISOCYTOSIS SLIGHT; BAND NEUTROPHILS 3 %; BASOPHILS % (MANUAL) 2 %; EOSINOPHILS % (MANUAL) 5 %; LYMPHOCYTES % (MANUAL) 14 %; NEUTROPHILS % (MANUAL) 63 %
[2016-10-30 09:27] LABS: INR 3.2 (0.8-1.4); PROTHROMBIN TIME PATIENT 32.3 SEC (12.2-14.7)
[2016-10-30 09:34] LABS: BILIRUBIN,URINE NEGATIVE (NEGATIVE); KETONES,URINE NEGATIVE (NEGATIVE); LEUKOCYTE ESTERASE ,URINE NEGATIVE (NEGATIVE); NITRITE,URINE NEGATIVE (NEGATIVE); PH,URINE 6 (5-9); PROTEIN,URINE 2+ (NEGATIVE); UROBILINOGEN,URINE NORMAL (NORMAL)
--- NOTE | 2016-10-30 09:35 | Diagnostic Imaging Report ---
INDICATION: Shortness of air. COMPARISON: 09/27/2016. FINDINGS: Single frontal radiographic view of the chest was obtained and demonstrates persistent exxc-cm-pxzvzgeu cardiomegaly. Pulmonary vasculature appears to be mildly prominent. There has been interval development of interstitial thickening within the bilateral mid and lower lung sethi. This appears to be superimposed on background of COPD. There is no large effusion or pneumothorax. Sternotomy wires and aortic atherosclerosis are noted. IMPRESSION: 1. Cardiomegaly with perhaps mild pulmonary vascular congestion. 2. Interval development of interstitial pneumonia or edema within the bilateral mid and lower lung sethi. Continued followup is recommended. 3. Probable background of COPD. Dictated by: Dictated on workstation # [id number]
[2016-10-30 09:57] LABS: HYALINE CASTS, URINE RARE /LPF; WBC,URINE RARE /HPF
--- NOTE | 2016-10-30 10:01 | ED Respiratory ---
General Chief Complaint: Respiratory Problems Stated Complaint: SOA Source: patient, EMS, residential records Exam Limitations: no limitations History of Present Illness Time seen by provider: 08:04 Initial Comments Here by EMS with report of shortness of air this morning at the residential. Patient noted to be wheezing and O2 sat in the low 80s. He was on nasal cannula and EMS initiated DuoNeb. This did improve his O2 sats to the mid 90s. Patient was noted to have mild fever. Son reports the patient has been increasingly tired over the last 24-48 hours and has had increasing cough over the last 2 days. He is currently on Mucinex for congestion. Denies nausea or vomiting. Denies chest pain. Timing/Duration: yesterday, getting worse Severity: moderate, severe Prior Episodes/Possible Cause: occasional episodes Modifying Factors: Worse With Activity, Improves With Albuterol Nebulizer, Improves With Oxygen Associated Symptoms: cough, fever/chills, nasal congestion, shortness of breath , wheezing Allergies and Home Medications Allergies Coded Allergies: iodine (Unverified Allergy, Mild, 01/06/09) sitagliptin (Unverified Allergy, Mild, 02/27/09) Home Medications Atorvastatin Calcium 80 Mg Tablet, 80 MG PO HS, (Reported) Colchicine 0.6 Mg Tablet, 0.6 MG PO DAILY PRN for GOUT PAIN, (Reported) Ergocalciferol 50,000 Unit Capsule, 50,000 UNIT PO SATURDAY @0900, (Reported) Furosemide 40 Mg Tab, 40 MG PO DAILY, (Reported) Gabapentin 600 Mg Tablet, 600 MG PO BID, (Reported) Insulin Glargine,Hum.rec.anlog 300 Unit/3 Ml Insuln.pen, 36 UNITS SQ DAILY, ( Reported) Magnesium Oxide 400 Mg Tab, 400 MG PO DAILY, (Reported) Seymour 3 Polyunsat Fatty Acids 1,000 Mg Cap, 1,000 MG PO DAILY, (Reported) Omeprazole 20 Mg Capsule.dr, 20 MG PO DAILY, (Reported) Potassium Chloride 20 Meq Tab.prt.sr, 20 MEQ PO DAILY, (Reported) Tamsulosin Hcl 0.4 Mg Cap.er.24h, 0.4 MG PO DAILY, (Reported) Warfarin Sodium 4 Mg Tablet, 2 MG PO , @ HS, (Reported) TAKES 1/2 (4MG) TABLET Warfarin Sodium 4 Mg Tablet, 4 MG PO CLEANING,MO,WE,FR,SA @, (Reported) Constitutional: see HPI, chills, No diaphoresis, fever EENTM: nose congestion, No throat pain Respiratory: cough, short of breath, wheezing Cardiovascular: No chest pain, No palpitations Gastrointestinal: No nausea, No vomiting Genitourinary: no symptoms reported Musculoskeletal: no symptoms reported Skin: no symptoms reported All Other Systems Reviewed Negative Unless Noted: Yes Past Nnuguuz-Zwrape-Ypbsce Hx Patient Social History Alcohol Use: Denies Use Recreational Drug Use: No Smoking Status: Former Smoker Former Smoker/When Quit: Nov 03, 2004 2nd Hand Smoke Exposure: No Recent Hopitalizations: Yes Immunizations Up To Date Tetanus Booster (TDap): Less than 5yrs Date of Pneumonia Vaccine: Jun 21, 2011 Date of Influenza Vaccine: Apr 20, 2014 Surgeries HX Surgeries: Yes (ABD AORTIC ANEURYSYM graft) Surgeries: CABG, Vasectomy Respiratory Hx Respiratory Disorders: Yes (COPD) Respiratory Disorders: Sleep Apnea, COPD Cardiovascular Hx Cardiac Disorders: Yes (QUAD BYPASS, AAA) Cardiac Disorders: Atrial Fibrillation, Chronic Edema/Swelling, Coronary Artery Disease, High Cholesterol, Hypertension, Peripheral Vascular Neurological Hx Neurological Disorders: Yes (NEUROPATHY BILAT. FEET) Neurological Disorders: Neuropathy, Spinal Cord Injury Reproductive System Hx Reproductive Disorders: No Sexually Transmitted Disease: No HIV/AIDS: No Genitourinary Hx Genitourinary Disorders: Yes Genitourinary Disorders: Renal Failure Gastrointestinal Hx Gastrointestinal Disorders: Yes Gastrointestinal Disorders: Gastroesophageal Reflux, Diverticulosis Musculoskeletal Hx Musculoskeletal Disorders: Yes Musculoskeletal Disorders: Arthritis, Gout Endocrine Hx Endocrine Disorders: Yes Endocrine Disorders: Diabetes, Insulin dep HEENT HX ENT Disorders: Yes Loss of Vision: Denies Hearing Impairment: Hard of Hearing Cancer Hx Cancer: Yes Cancer: Lymphoma Psychosocial Hx Psychiatric Problems: No Integumentary HX Skin/Integumentary Disorder: No Blood Transfusions Hx Blood Disorders: No Adverse Reaction to a Blood Tr: No Reviewed Nursing Assessment Reviewed/Agree w Nursing PMH: Yes Family Medical History Significant Family History: Heart Disease, Hypertension Physical Exam Vital Signs Vital Sign - Last 12Hours 10/30/16 08:25 Pulse Ox 90 O2 Flow Rate 5.00 Capillary Refill : General Appearance: WD/WN, no apparent distress HEENT: PERRL/EOMI, pharynx normal Neck: full range of motion, supple Respiratory: crackles (bilateral bases), wheezing, expiration Cardiovascular: regular rate, rhythm, no murmur Gastrointestinal: non tender, soft Extremities: non-tender, pedal edema (2+ to the level of mid tibia bilaterally) Neurologic/Psychiatric: alert, oriented x 3 Skin: normal color, warm/dry Focused Exam Lactic Acid Level Laboratory Tests Test 10/30/16 08:10 Lactic Acid Level 0.75 MMOL/L (0.50-2.00) Progress/Results/Core Measures Results/Orders Lab Results Laboratory Tests Test 10/30/16 08:10 10/30/16 08:58 10/30/16 09:27 Range/Units White Blood Count 6.4 4.3-11.0 10^3/uL Red Blood Count 3.30 L 4.35-5.85 10^6/uL Hemoglobin 10.7 L 13.3-17.7 G/DL Hematocrit 34 L 40-54 % Mean Corpuscular Volume 104 H 80-99 FL Mean Corpuscular Hemoglobin 32 25-34 PG Mean Corpuscular Hemoglobin Concent 31 L 32-36 G/DL Red Cell Distribution Width 17.4 H 10.0-14.5 % Platelet Count 158 130-400 10^3/uL Mean Platelet Volume 10.6 H 7.4-10.4 FL Neutrophils (%) (Auto) 58 42-75 % Lymphocytes (%) (Auto) 17 12-44 % Monocytes (%) (Auto) 19 H 0-12 % Eosinophils (%) (Auto) 5 0-10 % Basophils (%) (Auto) 1 0-10 % Neutrophils # (Auto) 3.7 1.8-7.8 X 10^3 Lymphocytes # (Auto) 1.1 1.0-4.0 X 10^3 Monocytes # (Auto) 1.2 H 0.0-1.0 X 10^3 Eosinophils # (Auto) 0.3 0.0-0.3 10^3/uL Basophils # (Auto) 0.1 0.0-0.1 10^3/uL Neutrophils % (Manual) 63 % Lymphocytes % (Manual) 14 % Monocytes % (Manual) 13 % Eosinophils % (Manual) 5 % Basophils % (Manual) 2 % Band Neutrophils 3 % Anisocytosis SLIGHT Macrocytosis SLIGHT Elliptocytes SLIGHT Sodium Level 140 135-145 MMOL/L Potassium Level 4.4 3.6-5.0 MMOL/L Chloride Level 108 H 98-107 MMOL/L Carbon Dioxide Level 21 21-32 MMOL/L Anion Gap 11 5-14 MMOL/L Blood Urea Nitrogen 27 H 7-18 MG/DL Creatinine 1.28 0.60-1.30 MG/DL Estimat Glomerular Filtration Rate 54 BUN/Creatinine Ratio 21 Glucose Level 76 70-105 MG/DL Lactic Acid Level 0.75 0.50-2.00 MMOL/L Calcium Level 8.8 8.5-10.1 MG/DL Total Bilirubin 2.2 H 0.1-1.0 MG/DL Aspartate Amino Transf (AST/SGOT) 19 5-34 U/L Alanine Aminotransferase (ALT/SGPT) 14 0-55 U/L Alkaline Phosphatase 86 40-136 U/L B-Type Natriuretic Peptide 447.7 H <100.0 PG/ML Total Protein 6.7 6.4-8.2 G/DL Albumin 4.0 3.2-4.5 G/DL Prothrombin Time 32.3 H 12.2-14.7 SEC INR Comment 3.2 H 0.8-1.4 Activated Partial Thromboplast Time 55 H 24-35 SEC Urine Color YELLOW Urine Clarity SLIGHTLY CLOUDY Urine pH 6 5-9 Urine Specific [place] 1.015 L 1.016-1.022 Urine Protein 2+ H NEGATIVE Urine Glucose (UA) NEGATIVE NEGATIVE Urine Ketones NEGATIVE NEGATIVE Urine Nitrite NEGATIVE NEGATIVE Urine Bilirubin NEGATIVE NEGATIVE Urine Urobilinogen NORMAL NORMAL MG/DL Urine Leukocyte Esterase NEGATIVE NEGATIVE Urine RBC (Auto) 2+ H NEGATIVE Urine RBC 0-2 /HPF Urine WBC RARE /HPF Urine Crystals NONE /LPF Urine Bacteria NEGATIVE /HPF Urine Casts PRESENT /LPF Urine Hyaline Casts RARE /LPF Urine Mucus NEGATIVE /LPF Urine Culture Indicated NO My Orders Orders - ESTEFANIA WILDE MD Cbc With Automated Diff (10/30/16 08:14) Comprehensive Metabolic Panel (10/30/16 08:14) Lactic Acid Analyzer (10/30/16 08:14) Blood Culture (10/30/16 08:14) Sputum Culture (10/30/16 08:14) Ua Culture If Indicated (10/30/16 08:14) Protime With Inr (10/30/16 08:14) Partial Thromboplastin Time (10/30/16 08:14) Chest 1 View, Ap/Pa Only (10/30/16 08:14) O2 (10/30/16 08:14) Acetaminophen Tablet (Tylenol Tablet) (10/30/16 08:15) Saline Lock/Iv-Start (10/30/16 08:14) Ekg Tracing (10/30/16 08:14) Vital Signs Adult Sepsis Patie Q1HR (10/30/16 08:14) Remove Rings In Anticipation O (10/30/16 08:14) Albuterol Pre-Mix Nebs (Rt) (Proventil P (10/30/16 08:14) Svn Sm Volume Nebulizer Rt-Rfs (10/30/16 08:14) Manual Differential (10/30/16 08:10) BNP (10/30/16 09:35) Furosemide Injection (Lasix Injection) (10/30/16 10:25) Levofloxacin 750 Mg/150 Ml Iv (Levaquin (10/30/16 10:28) Furosemide Injection (Lasix Injection) (10/30/16 10:25) Medications Given in ED Current Medications Medications Dose Ordered Sig/Ya Route Start Time Stop Time Status Last Admin Dose Admin Furosemide 40 mg STK-MED ONCE .ROUTE 10/30/16 10:25 10/30/16 10:29 DC 10/30/16 10:30 40 MG Vital Signs/I&O Vital Sign - Last 12Hours 10/30/16 08:25 Pulse Ox 90 O2 Flow Rate 5.00 Progress Note : Progress Note Seen and evaluated. IV, labs, EKG, chest x-ray, blood cultures and lactic acid ordered. Albuterol neb 2 which did markedly improve patient's subjective report of shortness of air. He still has cough and wheezing. High flow O2 switched to mask at 5-6 L. O2 sat 90-93 percent. Monitor patient. 1030: I did discuss the case with Dr. Sky. Patient has bibasilar pneumonia. There is some question of increased volume or volume overload. Lasix 40 mg IV and Levaquin 750 mg IV ordered. Admit, inpatient status. Patient and family agree with plan. ECG Initial ECG Impression Date: Oct 30, 2016 Initial ECG Impression Time: 08:09 Initial ECG Rate: 81 Initial ECG Rhythm: A Fib/Flutter Initial ECG Comparisson: Unchanged Comment Atrial fibrillation with normal rate. Normal axis. No evidence of ST elevation [place]. Overall similar morphology to previous of 12/15/09. Interpreted by me. Diagnostic Imaging Diagonstic Imaging: Xray Plain Films/CT/US/NM/MRI: chest Comments VIA [facility]. [place], [place] NAME: RICARDO RYAN [facility] REC#: [id number] PT STATUS: REG ER : 1930 PHYSICIAN: ESTEFANIA WILDE MD ADMIT DATE: 10/30/16/ER Draft Date of Exam:10/30/16 CHEST 1 VIEW, AP/PA ONLY INDICATION: Shortness of air. COMPARISON: 09/27/2016. FINDINGS: Single frontal radiographic view of the chest was obtained and demonstrates persistent [id number]-[id number] cardiomegaly. Pulmonary vasculature appears to be mildly prominent. There has been interval development of interstitial thickening within the bilateral mid and lower lung sethi. This appears to be superimposed on background of COPD. There is no large effusion or pneumothorax. Sternotomy wires and aortic atherosclerosis are noted. IMPRESSION: 1. Cardiomegaly with perhaps mild pulmonary vascular congestion. 2. Interval development of interstitial pneumonia or edema within the bilateral mid and lower lung sethi. Continued followup is recommended. 3. Probable background of COPD. Dictated on workstation # [id number] Dict: 10/30/16 0928 Trans: 10/30/16 0935 [facility] [id number] Interpreted by: MARYCRUZ HUBBARD Electronically signed by: Departure Communication Time/Spoke to Admitting Phy: 10:30 Impression Impression: Primary Impression: Bilateral pneumonia Qualified Codes: J18.9 - Pneumonia, unspecified organism Additional Impression: Volume overload Qualified Codes: E87.70 - Fluid overload, unspecified Disposition: 09 ADMITTED INPATIENT Condition: Stable Decision to Admit Reason: Admit from ER (General) Decision to Admit/Date: Oct 30, 2016 Time/Decision to Admit Time: 10:30 Departure-Patient Inst. Referrals: KELLY SKY MD (PCP/Family) Primary Care Physician ESTEFANIA WILDE MD Oct 30, 2016 10:01
[2016-10-30] MEDS ORDERED: FUROSEMIDE 40 MG/4 ML INJ (LASIX) ONE (10:25)
[2016-10-30] MEDS ORDERED: FUROSEMIDE 40 MG/4 ML INJ (LASIX) IV STA (10:25)
[2016-10-30] MEDS ORDERED: LEVOFLOXACIN 750 MG/150 ML IV 150 ML IV STA (10:28)
[2016-10-30] MEDS ORDERED: CATHETER FLUSH 10 ML SYR IV PRN (12:45)
[2016-10-30] MEDS: NS IV 1000 ML 1,000 ML IV SCH (12:49)
[2016-10-30] MEDS ORDERED: VANCOMYCIN 2000 MG/NS 500 ML IVPB IV NR ×2 (13:04)
[2016-10-30] MEDS ORDERED: ACET-2469 PO (14:12)
[2016-10-30] MEDS ORDERED: ACET325T49 PO (14:12)
[2016-10-30] MEDS ORDERED: SUPER BEET PO (14:12)
[2016-10-30] MEDS ORDERED: BUDE10.2 IH (14:12)
[2016-10-30] MEDS ORDERED: POLY119P5 PO (14:12)
[2016-10-30] MEDS ORDERED: ATOR40TA70 PO (14:12)
[2016-10-30] MEDS ORDERED: TAMS0.4C2 PO (14:12)
[2016-10-30] MEDS ORDERED: FOLI1TAB24 PO (14:12)
[2016-10-30] MEDS ORDERED: METH454P2 PO (14:12)
[2016-10-30] MEDS ORDERED: CYAN10007 PO (14:12)
[2016-10-30] MEDS ORDERED: HYDR-3812 PO (14:25)
[2016-10-30] MEDS ORDERED: GUAI600T43 PO (14:25)
[2016-10-30] MEDS ORDERED: WARF2TAB8 PO (14:25)
[2016-10-30] MEDS ORDERED: WARF4TAB9 PO (14:25)
[2016-10-30] MEDS ORDERED: GUAI5SYR PO (14:25)
[2016-10-30] MEDS ORDERED: RT-ALBUTEROL/IPRATROPIUM 3 ML (DUONEB) VIAL INH PRN (14:45)
[2016-10-30] MEDS: RT-ALBUTEROL/IPRATROPIUM 3 ML (DUONEB) VIAL INH SCH ×3 (15:19→22:00)
[2016-10-30] MEDS: CEFEPIME 2 GM/NS 50 ML IVPB IV SCH ×2 (15:53)
[2016-10-30] MEDS: inSUlin (REGULAR) HUMAN 1 UNIT/0.01 ML (CHARGE PER UNIT) SC SCH ×2 (15:53→19:30)
[2016-10-30 16:25] VITALS: BP 127/74
--- NOTE | 2016-10-30 18:14 | History & Physicial ---
History of Present Illness History of Present Illness Reason for visit/HPI PT IS AN 85 Y/O MALE WHO IS WELL KNOWN TO ME FROM CLINIC. ERIKA LIVES AT [facility], HAS A FRIEND/HOME ADMINISTRATOR WHO TAKES HIM OUT OF THE FACILITY FREQUENTLY FOR TRIPS AROUND [facility] AND TO CHECK ON HIS HOME [facility]. HE HAS BEEN INCREASINGLY FRAIL AND FEELING POORLY OVER THE PAST WEEK. HE DESCRIBES A COUGH AND CONGESTION THAT SEEMS TO HAVE BEEN WORSENING OVER THE PAST 48 HOURS Date of Admission Oct 30, 2016 at 11:05 I consulted on this patient on 10/30/16 18:10 Attending Physician Kelly Sky MD Admitting Physician Kelly Sky MD Consult Allergies and Home Medications Allergies Coded Allergies: iodine (Unverified Allergy, Mild, 01/06/09) sitagliptin (Unverified Allergy, Mild, 02/27/09) Home Medications Acetaminophen 325 Mg Tablet, 325 MG PO Q6H PRN for PAIN, (Reported) Acetaminophen 325 Mg Tablet, 650 MG PO Q6H PRN for PAIN, (Reported) ALTERNATING WITH ACETAMINOPHEN 325MG EVERY 6 HOURS NEEDED. Acetaminophen/Diphenhydramine 1 Each Tablet, 1 TAB PO HS, (Reported) Atorvastatin Calcium 40 Mg Tablet, 40 MG PO HS, (Reported) Budesonide/Formoterol Fumarate 10.2 Gm Hfa.aer.ad, 2 PUFF IH BID PRN for SHORTNESS OF BREATH, (Reported) Cyanocobalamin (Vitamin B-12) 1,000 Mcg Tablet.er, 1,000 MCG PO HS, (Reported) Folic Acid 1 Mg Tablet, 1 MG PO HS, (Reported) Furosemide 40 Mg Tab, 40 MG PO DAILY, (Reported) Guaifenesin 600 Mg Tab.er.12h, 600 MG PO BID PRN for COUGH/CONGESTION, (Reported ) Guaifenesin/Dextromethorphan 5 Ml Syrup, 10 ML PO Q4H PRN for COUGH, (Reported) Hydrocodone/Acetaminophen 1 Each Tablet, 1 EACH PO Q4H PRN for PAIN, (Reported) Insulin Glargine,Hum.rec.anlog 300 Unit/3 Ml Insuln.pen, 28 UNITS SQ DAILY, ( Reported) Magnesium Oxide 400 Mg Tab, 400 MG PO DAILY, (Reported) Methylcellulose (with Sugar) 454 Gm Powder, 1 TSP PO DAILY, (Reported) Polyethylene Glycol 3350 119 Gm Powder, 17 GM PO DAILY, (Reported) Potassium Chloride 20 Meq Tab.prt.sr, 20 MEQ PO DAILY, (Reported) Tamsulosin HCl 0.4 Mg Cap.er.24h, 0.4 MG PO DAILY, (Reported) Warfarin Sodium 4 Mg Tablet, 4 MG PO SuMoWeThFrSa, (Reported) Warfarin Sodium 2 Mg Tablet, 2 MG PO Tu, (Reported) [Super Beet Powder] , 1 TSP PO DAILY, (Reported) Past Ftyyfzj-Nryxmp-Ieyrhp Hx Patient Social History Marrital Status: Living Status: , LIVES AT [facility] IN [place], [place] Employed/Student: retired Alcohol Use: Denies Use Recreational Drug Use: No Smoking Status: Former Smoker Former smoker/When Quit: Nov 03, 2004 2nd Hand Smoke Exposure: No Physical Abuse Screen: No Sexual Abuse: No Recent Foreign Travel: No Contact w/other who traveled: No Recent Hopitalizations: Yes Recent Infectious Disease Expo: No Immunizations Up To Date Tetanus Booster (TDap): Less than 5yrs Date of Pneumonia Vaccine: Jun 21, 2011 Date of Influenza Vaccine: Apr 20, 2016 Surgeries HX Surgeries: Yes (ABD AORTIC ANEURYSYM graft) Surgeries: CABG, Vasectomy Respiratory Hx Respiratory Disorders: Yes (COPD) Respiratory Disorders: COPD Cardiovascular Hx Cardiovascular Disorders: Yes (QUAD BYPASS, AAA) Cardiac Disorders: Atrial Fibrillation, Chronic Edema/Swelling, Coronary Artery Disease, High Cholesterol, Hypertension, Peripheral Vascular Neurological Hx Neurological Disorders: Yes (NEUROPATHY BILAT. FEET) Neurological Disorders: Neuropathy, Spinal Cord Injury Reproductive System Hx Reproductive Disorders: No Sexually Transmitted Disease: No HIV/AIDS: No Genitourinary Hx Genitourinary Disorders: Yes Genitourinary Disorders: Renal Failure Gastrointestinal Hx Gastrointestinal Disorders: Yes Gastrointestinal Disorders: Gastroesophageal Reflux, Diverticulosis Musculoskeletal Hx Musculoskeletal Disorders: Yes Musculoskeletal Disorders: Arthritis, Gout Endocrine Hx Endocrine Disorders: Yes Endocrine Disorders: Diabetes, Insulin dep HEENT HX ENT Disorders: Yes Loss of Vision: Denies Hearing Impairment: Hard of Hearing Cancer Hx Cancer: Yes Cancer: Lymphoma Psychosocial Hx Psychiatric Problems: No Integumentary HX Skin/Integumentary Disorder: No Blood Transfusions Hx Blood Disorders: No Adverse Reaction to a Blood Tr: No Reviewed Nursing Assessment Reviewed/Agree w Nursing PMH: Yes Family Medical History Significant Family History: Heart Disease, Hypertension Constitutional: fever, malaise, weakness EENTM: No blurred vision, No double vision, No throat swelling Respiratory: cough, dyspnea on exertion, short of breath Cardiovascular: No palpitations Gastrointestinal: No abdominal pain, No constipation, No diarrhea Genitourinary: incontinence Musculoskeletal: muscle weakness (LOWER LEGS) Skin: No dryness Psychiatric/Neurological: Denies Anxiety, Denies Depressed Physical Exam Vital Signs Vital Sign - Last 12Hours 10/30/16 10/30/16 08:04 11:00 Temp 100.0 Pulse 81 Resp 27 B/P (MAP) 142/88 Pulse Ox 94 O2 Delivery Nasal Cannula O2 Flow Rate 3.00 FiO2 95 Capillary Refill : Less Than 3 Seconds General Appearance: No Apparent Distress, WD/WN Eyes: Bilateral Eye EOMI, Bilateral Eye Normal Inspection, Bilateral Eye PERRL HEENT: PERRL/EOMI, Pharynx Normal Neck: Full Range of Motion, Supple Respiratory: Chest Non Tender, Crackles (IN BASES), Decreased Breath Sounds, Wheezing Cardiovascular: Regular Rate, Rhythm, No Edema Gastrointestinal: Normal Bowel Sounds, No Organomegaly, No Pulsatile Mass, Non Tender, Soft Rectal: Deferred Back: Normal Inspection Extremity: Normal Capillary Refill, No Calf Tenderness Neurologic/Psychiatric: Alert, Oriented x3, Normal Mood/Affect Skin: Normal Color, Warm/Dry Lymphatic: No Adenopathy Assessment/Plan Assessment and Plan PNEUMONIA DYSPNEA HYPOXEMIA TRANSVERSE MYELITIS - CHRONIC PERIPHERAL NEUROPATHY ATRIAL FIBRILLATION CHRONIC ANTICOAGULATION PNEUMONIA - WITH COPD - PT ON OXYGEN CONTINUE WITH TREATMENT - PNEUMONIA PROTOCOL, WILL ADJUST MEDICATIONS INDICATED BY SYMPTOMS AND SPUTUM CULTURE. BREATHING TREATMENTS PER MAT PROTOCOL, WEAN OXYGEN ABLE. TRANSVERSE MYELITIS - CHRONIC - SUPPORTIVE CARE, START THERAPY TOMORROW. AFIB - RATE CONTROLLED - CONTINUE WITH COUMADIN ONCE INR NORMALIZES TO THERAPEUTIC LEVELS. Problems: Admission Diagnosis PNEUMONIA DYSPNEA HYPOXEMIA TRANSVERSE MYELITIS - CHRONIC PERIPHERAL NEUROPATHY ATRIAL FIBRILLATION CHRONIC ANTICOAGULATION Clinical Quality Measures DVT/VTE Risk/Contraindication: Risk Factor Score Per Nursin RFS Level Per Nursing on Admit: 4+=Very High KELLY SKY MD Oct 30, 2016 18:13
[2016-10-30] MEDS ORDERED: RX-HYDROCODONE/APAP 5/325 MG #4 TAB PK PO PRN (18:15)
[2016-10-30] MEDS ORDERED: guaiFENesin (MUCINEX) 600 MG TAB PO PRN (18:15)
[2016-10-30] MEDS ORDERED: guaiFENesin/DM (ROBITUSSIN DM) 10 ML UDC PO PRN (18:15)
[2016-10-30] MEDS ORDERED: HYDROcodone/APAP 5 MG/325 MG (LORTAB) TAB PO PRN (18:30)
[2016-10-30 19:30] VITALS: BP 113/65
[2016-10-30] MEDS: RT-BUDESONIDE NEBS 0.5 MG/2ML (PULMICORT) AMP INH SCH (19:50)
[2016-10-30] MEDS: CYANOCOBALAMIN 500 MCG TAB (VITAMIN B-12) PO SCH (20:34)
[2016-10-30] MEDS: diphenhydrAMINE 25 MG TAB (BENADRYL) PO SCH (20:34)
[2016-10-30] MEDS: guaiFENesin (MUCINEX) 600 MG TAB PO SCH (20:35)
[2016-10-30] MEDS: ATORVASTATIN 40 MG (LIPITOR) TABLET PO SCH (20:35)
[2016-10-30] MEDS: ACETAMINOPHEN 500 MG TAB (TYLENOL) PO SCH (20:35)
[2016-10-30] MEDS: FOLIC ACID 1 MG TAB PO SCH (20:35)
[2016-10-30] MEDS: POLYETHYLENE GLYCOL 17 GM (MIRALAX) PACK PO SCH (20:36)
[2016-10-30] MEDS ORDERED: NON-FORMULARY MEDICATION 1 EA EA (Acetaminophen/Diphenhydramine (Tylenol Pm Ex-Strength Ca PO SCH (21:00)
[2016-10-30] MEDS ORDERED: NON-FORMULARY MEDICATION 1 EA EA (Cyanocobalamin (Vitamin B-12) (Vitamin B-12) 1,000 MCG) PO SCH (21:00)
[2016-10-31] VITALS: BP 109/63
[2016-10-31] MEDS: RT-ALBUTEROL/IPRATROPIUM 3 ML (DUONEB) VIAL INH SCH ×6 (02:00→21:16)
[2016-10-31 04:00] VITALS: BP 114/71
[2016-10-31 06:12] LABS: BASOPHILS % (AUTO) 1 % (0-10); EOSINOPHILS # (AUTO) 0.4 10^3/uL (0.0-0.3); EOSINOPHILS % (AUTO) 7 % (0-10); LYMPHOCYTES # (AUTO) 1.7 X 10^3 (1.0-4.0); LYMPHOCYTES % (AUTO) 30 % (12-44); MEAN CORPUSCULAR HEMOGLOBIN 33 PG (25-34); MEAN CORPUSCULAR HGB CONC 31 G/DL (32-36); MEAN CORPUSCULAR VOLUME 105 FL (80-99); MEAN PLATELET VOLUME 10.7 FL (7.4-10.4); MONOCYTES # (AUTO) 1.3 X 10^3 (0.0-1.0); MONOCYTES % (AUTO) 23 % (0-12); NEUTROPHILS # (AUTO) 2.2 X 10^3 (1.8-7.8); NEUTROPHILS % (AUTO) 39 % (42-75); PLATELET COUNT 144 10^3/uL (130-400); RED BLOOD COUNT 2.96 10^6/uL (4.35-5.85); RED CELL DISTRIBUTION WIDTH 17.1 % (10.0-14.5); WHITE BLOOD COUNT 5.6 10^3/uL (4.3-11.0)
[2016-10-31] MEDS: RT-BUDESONIDE NEBS 0.5 MG/2ML (PULMICORT) AMP INH SCH ×2 (06:33→19:03)
[2016-10-31 06:41] LABS: ALBUMIN 3.5 G/DL (3.2-4.5); CALCIUM 8.4 MG/DL (8.5-10.1); CREATININE SERUM 1.21 MG/DL (0.60-1.30); POTASSIUM 4.6 MMOL/L (3.6-5.0); TOTAL PROTEIN 6.1 G/DL (6.4-8.2)
[2016-10-31] MEDS: inSUlin (REGULAR) HUMAN 1 UNIT/0.01 ML (CHARGE PER UNIT) SC SCH ×4 (07:02→21:09)
[2016-10-31 08:00] VITALS: BP 120/71
[2016-10-31] MEDS ORDERED: INSULIN GLARGINE HUM REC ANLOG 28 UNIT SQ SCH (09:00)
[2016-10-31] MEDS ORDERED: TAMSULOSIN 0.4 MG (FLOMAX) CAP PO SCH (09:00)
[2016-10-31] MEDS ORDERED: NON-FORMULARY MEDICATION 1 EA EA (Polyethylene Glycol 3350 (Miralax) 17 GM) PO SCH (09:00)
[2016-10-31] MEDS ORDERED: [UNRECOGNIZED DRUG - OTHER] SQ SCH (09:00)
--- NOTE | 2016-10-31 09:17 | Progress Note (SOAP) ---
Subjective Subjective/Events-last exam PT REPORTS THAT HE IS STILL PRETTY SHORT OF BREATH, FEELS THE MUCUS IN HIS THROAT. Review of Systems General: Fatigue, Malaise Pulmonary: Dyspnea, Cough Cardiovascular: No: Chest Pain Gastrointestinal: No: Nausea Neurological: Weakness Objective Exam Vital Signs Date Time Temp Pulse Resp B/P (MAP) Pulse Ox O2 Delivery O2 Flow Rate FiO2 10/31/16 06:33 8.00 10/31/16 06:33 93 8.00 10/31/16 04:00 97.8 60 22 114/71 93 High Flow NC 8.00 10/31/16 01:17 62 10/31/16 00:00 97.6 69 20 109/63 93 High Flow NC 8.00 10/30/16 20:00 92 High Flow N/C 6.00 95 10/30/16 19:50 94 8.00 10/30/16 19:46 94 8.00 10/30/16 19:40 68 10/30/16 19:30 97.4 64 20 113/65 96 High Flow NC 6.00 10/30/16 16:25 97.8 66 20 127/74 95 High Flow NC 6.00 10/30/16 15:19 89 6.00 10/30/16 14:26 88 10/30/16 14:26 88 5.00 10/30/16 11:50 100.0 79 20 93 4.00 10/30/16 11:40 92 Simple Mask 5.00 10/30/16 11:00 100.0 81 27 142/88 93 T Piece 10.00 I & O 10/31/16 07:00 Intake Total 1860 ml Output Total 2675 ml Balance -815 ml Capillary Refill : Less Than 3 Seconds General Appearance: No Apparent Distress, WD/WN HEENT: PERRL/EOMI, Pharynx Normal Neck: Full Range of Motion, Supple Respiratory: Chest Non Tender, Decreased Breath Sounds, Wheezing Cardiovascular: Regular Rate, Rhythm Gastrointestinal: normal bowel sounds, non tender, soft, no organomegaly, no pulsatile mass Lymphatic: No Adenopathy Results Lab Laboratory Tests 10/30/16 09:27: Urine Color YELLOW, Urine Clarity SLIGHTLY CLOUDY, Urine pH 6, Urine Specific [place] 1.015L, Urine Protein 2+H, Urine Glucose (UA) NEGATIVE, Urine Ketones NEGATIVE, Urine Nitrite NEGATIVE, Urine Bilirubin NEGATIVE, Urine Urobilinogen NORMAL, Urine Leukocyte Esterase NEGATIVE, Urine RBC (Auto) 2+H, Urine RBC 0-2, Urine WBC RARE, Urine Crystals NONE, Urine Bacteria NEGATIVE, Urine Casts PRESENT, Urine Hyaline Casts RARE, Urine Mucus NEGATIVE, Urine Culture Indicated NO 10/30/16 15:04: Glucometer 239H 10/30/16 19:43: Glucometer 124H 10/31/16 05:46: White Blood Count 5.6, Red Blood Count 2.96L, Hemoglobin 9.8L, Hematocrit 31L, Mean Corpuscular Volume 105H, Mean Corpuscular Hemoglobin 33, Mean Corpuscular Hemoglobin Concent 31L, Red Cell Distribution Width 17.1H, Platelet Count 144, Mean Platelet Volume 10.7H, Neutrophils (%) (Auto) 39L, Lymphocytes (%) (Auto) 30, Monocytes (%) (Auto) 23H, Eosinophils (%) (Auto) 7, Basophils (%) (Auto) 1, Neutrophils # (Auto) 2.2, Lymphocytes # (Auto) 1.7, Monocytes # (Auto) 1.3H, Eosinophils # (Auto) 0.4H, Basophils # (Auto) 0.0, Sodium Level 139, Potassium Level 4.6, Chloride Level 109H, Carbon Dioxide Level 21, Anion Gap 9, Blood Urea Nitrogen 27H, Creatinine 1.21, Estimat Glomerular Filtration Rate 57, BUN/ Creatinine Ratio 22, Glucose Level 70, Calcium Level 8.4L, Total Bilirubin 2.0H , Aspartate Amino Transf (AST/SGOT) 19, Alanine Aminotransferase (ALT/SGPT) 13, Alkaline Phosphatase 77, Total Protein 6.1L, Albumin 3.5 Microbiology 10/30/16 Gram Stain - Final, Resulted 10/30/16 Sputum Culture - Preliminary, Resulted Usual/normal kamla isolated. Assessment/Plan Assessment/Plan Assess & Plan/Chief Complaint PNEUMONIA DYSPNEA HYPOXEMIA TRANSVERSE MYELITIS - CHRONIC PERIPHERAL NEUROPATHY ATRIAL FIBRILLATION CHRONIC ANTICOAGULATION PNEUMONIA - WITH COPD - PT ON OXYGEN CONTINUE WITH TREATMENT - PNEUMONIA PROTOCOL, WILL ADJUST MEDICATIONS INDICATED BY SYMPTOMS AND SPUTUM CULTURE. BREATHING TREATMENTS PER MAT PROTOCOL, WEAN OXYGEN ABLE. TRANSVERSE MYELITIS - CHRONIC - SUPPORTIVE CARE, START THERAPY TODAY. AFIB - RATE CONTROLLED - CONTINUE WITH COUMADIN ONCE INR NORMALIZES TO THERAPEUTIC LEVELS. CHECK CHEST XRAY TODAY. Clinical Quality Measures DVT/VTE Risk/Contraindication: Risk Factor Score Per Nursin RFS Level Per Nursing on Admit: 4+=Very High KELLY BEDOLLA MD Oct 31, 2016 09:17
--- NOTE | 2016-10-31 09:45 | Diagnostic Imaging Report ---
EXAMINATION: AP and lateral views of the chest. COMPARISON: 10/30/2016. FINDINGS: There are mild bibasilar infiltrates. The heart size is moderately enlarged. There is interstitial pulmonary edema. There are tiny pleural effusions bilaterally. There is minimal change when compared to 10/30/2016. IMPRESSION: Cardiomegaly with vascular congestion/interstitial pulmonary edema. Dictated by: Dictated on workstation # [id number]
[2016-10-31] MEDS: MAGNESIUM OXIDE (MAG-OX)400 MG TAB PO SCH (10:48)
[2016-10-31] MEDS: guaiFENesin (MUCINEX) 600 MG TAB PO SCH ×2 (10:48→20:51)
[2016-10-31] MEDS: FUROSEMIDE 40 MG (LASIX) TAB PO SCH (10:48)
[2016-10-31] MEDS: KCL 20 MEQ TAB (K-DUR) PO SCH (10:48)
[2016-10-31] MEDS: inSUlin DETERMIR 1 UNIT/0.01 ML (LEVEMIR) CHARGE PER UNIT SQ SCH (10:49)
--- NOTE | 2016-10-31 11:14 | Physical Therapy Progress Note ---
Therapy Progress Note Visit attempt. Pt reports he is very tired, has not slept well the last 2 nights. Pleasant. Nurse confirms lack of sleep and that he just showered and is fatigued. Noted that he did desat with with shower. Will check this pm. NASEEM HUNT PT Oct 31, 2016 11:14
[2016-10-31 12:00] VITALS: BP 133/79
[2016-10-31] MEDS ORDERED: VANCOMYCIN 1250 MG/NS 250 ML IVPB IV SCH ×2 (13:00)
[2016-10-31] MEDS: NS IV 1000 ML 1,000 ML IV SCH (14:06)
--- NOTE | 2016-10-31 14:50 | Physical Therapy Progress Note ---
Therapy Progress Note visit attempt Attempted PT visit this pm. Pt initially agreed to PT after he ate a late lunch , but upon return pt declined therapy this pm. Educated pt on importance of participation with therapy and pt noted he would participate tomorrow. Nursing present and tried to encourage participation as well. Pt friendly but notes he is just to tired right now. NASEEM HUNT PT Oct 31, 2016 14:50
[2016-10-31] MEDS: aCETylcysteine 20% (MUCOMYST) 30ML SOLN VIAL INH SCH ×3 (15:14→21:17)
[2016-10-31 15:30] VITALS: BP 138/72
[2016-10-31] MEDS: CEFEPIME 2 GM/NS 50 ML IVPB IV SCH ×2 (15:45)
[2016-10-31] MEDS: ALFUZOSIN HCL 10 MG TAB (UROXATRAL) PO SCH (17:45)
[2016-10-31 19:25] VITALS: BP 99/58
[2016-10-31] MEDS: FOLIC ACID 1 MG TAB PO SCH (20:50)
[2016-10-31] MEDS: ATORVASTATIN 40 MG (LIPITOR) TABLET PO SCH (20:50)
[2016-10-31] MEDS: diphenhydrAMINE 25 MG TAB (BENADRYL) PO SCH (20:50)
[2016-10-31] MEDS: ACETAMINOPHEN 500 MG TAB (TYLENOL) PO SCH (20:50)
[2016-10-31] MEDS: CYANOCOBALAMIN 500 MCG TAB (VITAMIN B-12) PO SCH (20:50)
[2016-10-31] MEDS: POLYETHYLENE GLYCOL 17 GM (MIRALAX) PACK PO SCH (20:50)
[2016-11-01] VITALS: BP 116/64
[2016-11-01] MEDS: RT-ALBUTEROL/IPRATROPIUM 3 ML (DUONEB) VIAL INH SCH ×6 (01:50→22:21)
[2016-11-01] MEDS: aCETylcysteine 20% (MUCOMYST) 30ML SOLN VIAL INH SCH ×4 (01:50→22:21)
[2016-11-01] MEDS: NS IV 1000 ML 1,000 ML IV SCH (02:57)
[2016-11-01 04:00] VITALS: BP 104/55
[2016-11-01] MEDS: inSUlin (REGULAR) HUMAN 1 UNIT/0.01 ML (CHARGE PER UNIT) SC SCH ×4 (06:00→21:04)
[2016-11-01] MEDS: RT-BUDESONIDE NEBS 0.5 MG/2ML (PULMICORT) AMP INH SCH ×2 (06:11→18:34)
[2016-11-01 08:34] VITALS: BP 138/74
[2016-11-01] MEDS: MAGNESIUM OXIDE (MAG-OX)400 MG TAB PO SCH (08:59)
[2016-11-01] MEDS: guaiFENesin (MUCINEX) 600 MG TAB PO SCH ×2 (08:59→20:37)
[2016-11-01] MEDS: KCL 20 MEQ TAB (K-DUR) PO SCH (08:59)
[2016-11-01] MEDS: FUROSEMIDE 40 MG (LASIX) TAB PO SCH (08:59)
[2016-11-01] MEDS: inSUlin DETERMIR 1 UNIT/0.01 ML (LEVEMIR) CHARGE PER UNIT SQ SCH (08:59)
[2016-11-01 09:15] LABS: INR 2.2 (0.8-1.4); PROTHROMBIN TIME PATIENT 24.6 SEC (12.2-14.7)
--- NOTE | 2016-11-01 09:17 | Progress Note (SOAP) ---
Subjective Subjective/Events-last exam PT REPORTS THAT HE IS NOT SLEEPING WELL. HE REPORTS THAT HIS COUGH IS BETTER, BUT HE IS VERY FATIGUED. HE REPORTS THAT HE HAD AN ACCIDENT IN HIS BED LAST NIGHT. Review of Systems General: No Chills, Fatigue HEENT: No Head Aches Pulmonary: Dyspnea, Cough Cardiovascular: No: Chest Pain, Palpitations Gastrointestinal: No: Abdominal Pain, Nausea Genitourinary: Other (WAGGONER) Musculoskeletal: leg pain (AND WEAKNESS) Neurological: Weakness, No: Confusion Objective Exam Vital Signs Date Time Temp Pulse Resp B/P (MAP) Pulse Ox O2 Delivery O2 Flow Rate FiO2 11/01/16 08:34 96.2 84 18 138/74 91 High Flow NC 8.00 11/01/16 07:00 75 11/01/16 06:11 95 8.00 11/01/16 06:07 92 8.00 11/01/16 04:00 97.3 79 20 104/55 91 High Flow NC 8.00 11/01/16 01:50 89 7.00 11/01/16 00:00 98.3 75 22 116/64 92 High Flow NC 8.00 10/31/16 21:17 94 8.00 10/31/16 20:45 92 High Flow N/C 8.00 95 10/31/16 19:25 99.4 88 20 99/58 92 High Flow NC 7.00 10/31/16 19:10 95 8.00 10/31/16 19:04 90 8.00 10/31/16 19:00 78 10/31/16 15:30 100.3 90 20 138/72 87 Nasal Cannula 8.00 10/31/16 15:12 92 8.00 10/31/16 12:49 77 10/31/16 12:00 99.9 82 20 133/79 96 Nasal Cannula 8.00 10/31/16 10:44 95 8.00 I & O 11/01/16 07:00 Intake Total 2680 ml Output Total 3075 ml Balance -395 ml Capillary Refill : Less Than 3 Seconds General Appearance: No Apparent Distress, WD/WN HEENT: PERRL/EOMI, Pharynx Normal Neck: Full Range of Motion, Supple Respiratory: Chest Non Tender, Decreased Breath Sounds, Wheezing (FAINT) Cardiovascular: No Edema, No Gallop, No JVD, Irregularly Irregular Gastrointestinal: normal bowel sounds, non tender, soft, no organomegaly, no pulsatile mass Neurologic/Psychiatric: Alert, Oriented x3, Normal Mood/Affect Skin: Warm/Dry Lymphatic: No Adenopathy Results Lab Laboratory Tests 10/31/16 11:26: Glucometer 122H 10/31/16 15:59: Glucometer 202H 10/31/16 21:02: Glucometer 203H 11/01/16 06:27: Glucometer 89 11/01/16 08:56: Microbiology 10/30/16 Blood Culture - Preliminary, Resulted Probable Coag Negative Staph Strep Species, Alpha Hemolytic 10/30/16 Gram Stain - Final, Resulted 10/30/16 Sputum Culture - Preliminary, Resulted Usual/normal kamla isolated. Assessment/Plan Assessment/Plan Assess & Plan/Chief Complaint PNEUMONIA DYSPNEA HYPOXEMIA TRANSVERSE MYELITIS - CHRONIC PERIPHERAL NEUROPATHY ATRIAL FIBRILLATION CHRONIC ANTICOAGULATION PNEUMONIA - WITH COPD - PT ON OXYGEN CONTINUE WITH TREATMENT - PNEUMONIA PROTOCOL, WILL ADJUST MEDICATIONS INDICATED BY SYMPTOMS AND SPUTUM CULTURE. BREATHING TREATMENTS PER MAT PROTOCOL, WEAN OXYGEN ABLE. - CONTINUE WITH CURRENT TREATMENT TRANSVERSE MYELITIS - CHRONIC - SUPPORTIVE CARE, START THERAPY TODAY. AFIB - RATE CONTROLLED - CONTINUE WITH COUMADIN ONCE INR NORMALIZES TO THERAPEUTIC LEVELS. CHECK CHEST XRAY TOMORROW. STOP IV FLUIDS TODAY Clinical Quality Measures DVT/VTE Risk/Contraindication: Risk Factor Score Per Nursin RFS Level Per Nursing on Admit: 4+=Very High KELLY BEDOLLA MD Nov 01, 2016 09:17
--- NOTE | 2016-11-01 10:10 | Physical Therapy Evaluation ---
PT Evaluation-General Medical Diagnosis Admission Date Oct 30, 2016 at 11:05 Medical Diagnosis: pneumonia/volume overload Onset Date: Oct 30, 2016 Therapy Diagnosis Therapy Diagnosis: generalized weakness and debility Height/Weight Height (Feet): 6 Height (Inches): 0.00 Weight (Pounds): 203 Weight (Ounces): 5.0 Precautions Precautions/Isolations: Fall Prevention, Standard Precautions Referral Physician: Jose Daniel Reason for Referral: Evaluation/Treatment Medical History Pertinent Medical History: Arthritis, CABG, CAD, COPD, DM, HTN, OA, Renal Insufficiency, Smoking Additional Medical History transverse myelitis Current History volume overload; O2 3L NC at home; ambulates short distances only (25') and uses scooter for distance Social History Home: Assisted Living Entry Into Home: Level Entry Prior/Core FIM Prior Level of Function Functional [place] Measure 0=Not Assessed/NA 4=Minimal Assistance 1=Total Assistance 5=Supervision or Setup 2=Maximal Assistance 6=Modified [place] 3=Moderate Assistance 7=Complete [place] Bed Mobility: 6 Transfers (B,C,W/C) (FIM): 6 Gait: 1 Wheelchair Mobility: 6 4WW and power scooter PT Evaluation-Current Subjective Patient is very agitated and reluctantly agrees to PT. Pain Numeric Pain Scale: 10-Worst Possible Pain Objective Patient Orientation: Normal For Age Problem Solving: Fair Attachments: Oxygen (8L HF NC), Nelson Catheter, IV ROM/Strength ROM Lower Extremities bilateral LE WFL Strenght Lower Extremities right knee flexion/extension 3+/5; hip flexion 3+/5; ankle dorsi/plantarflexion 3+/5 left knee flexion/extension 3+/5; hip flexion 3+/5; ankle dorsi/plantarflexion 3 +/5 Integumentary/Posture Integumentary refer to nursing notes Bladder Incontinence: Nelson Cath Posture flexed hip posture Neuromuscular (Tone, Coordination, Reflexes) diminished coordination due to inactivity PLOF Sensory Hearing: Impaired Sensation Right Lower Extremit: Impaired Sensation Left Lower Extremity: Impaired Transfers Functional [place] Measure 0=Not Assessed/NA 4=Minimal Assistance 1=Total Assistance 5=Supervision or Setup 2=Maximal Assistance 6=Modified [place] 3=Moderate Assistance 7=Complete [place] Transfers (B, C, W/C) (FIM): 4 Scootin Sit to/from Stand: 4 bed t/f WC(FIM only if WC use): 4 CGA to SBA for safety; patient is impulsive to sit and does not fully turn body to position safely in front of chair. Gait Mode of Locomotion: Both Anticipated Mode of Locomotion: Both Gait (FIM): 1 Distance (FIM): 1=up to 49 ft Distance: 15' Gait Level of Assist: 5 Gait Persons Needed: 1 Gait Assistive Device: FWW Comments/Gait Description close SBA for safety; Patient pushes FWW and states he wants a 4WW to use, however, a 4WW is unsafe and education with patient and family on this safety concern given. Balance Sitting Static: Normal Sitting Dynamic: Normal Standing Static: Fair Standing Dynamic: Fair Assessment/Needs 85 y.o. male, will benefit from skilled PT to address cardiopulmonary function with exercise and gait. Patient is limited in pulmonary function due to pneumonia and inactivity PLOF. PT to increase activity as tolerated by patient. 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 School Bus Driver Goals PT School Bus Driver Goals Time Frame: Nov 09, 2016 Transfers (B,C,W/C) (FIM): 5 Gait (FIM): 1 Gait distance (FIM): 1=up to 49 ft Distance: 25' Gait Level of Assist: 5 Gait Assistive Device: FWW PT Plan Problem List Problem List: Activity Tolerance, Functional Strength, Safety, Balance, Gait, Transfer, Bed Mobility Treatment/Plan Treatment Plan: Continue Plan of Care Treatment Plan: Bed Mobility, Education, Functional Activity Gi, Functional Strength, Gait, Safety, Therapeutic Exercise, Transfers Treatment Duration: Nov 09, 2016 # of days/week 5-6 Visits Per Week: 5-6 Pt/Family Agrees w/Plan: Yes Safety Risks/Education Patient Education: Safety Issues Teaching Recipient: Patient, Family Teaching Methods: Discussion Response to Teaching: Reinforcement Needed Discharge Recommendations Therapy D/C Recommendations: Shelter (TCU/NH) Time/GCodes Time In: 930 Time Out: 945 Total Billed Treatment Time: 15 Total Billed Treatment 1 visit EVModC 15 min MARIO MCCARTHY PT Nov 01, 2016 10:10
[2016-11-01] MEDS ORDERED: LEVOFLOXACIN 750 MG TAB (LEVAQUIN) PO SCH (11:00)
--- NOTE | 2016-11-01 11:51 | Diagnostic Imaging Report ---
INDICATION: Pneumonia, shortness of air, followup exam. Comparison study: Chest from yesterday. FINDINGS: Frontal and lateral views of the chest demonstrate stable cardiomegaly with previous coronary artery bypass graft surgery. Pulmonary congestion and edema are again identified. There are small pleural effusions. IMPRESSION: Stable congestive heart failure. Dictated by: Dictated on workstation # [id number]
[2016-11-01 12:00] VITALS: BP_DIAS 74
[2016-11-01] MEDS ORDERED: LEVOFLOXACIN 750 MG/D5W 150 ML PRE-MIX IV SCH (12:00)
[2016-11-01] MEDS ORDERED: TROUGH ORDER-PHARMACY XX NR (12:00)
[2016-11-01] MEDS ORDERED: VANCOMYCIN INJECTION 1,750 MG in NS IV 500 ML 500 ML IV SCH (13:00)
[2016-11-01] MEDS: CEFEPIME 2 GM/NS 50 ML IVPB IV SCH ×2 (14:52)
[2016-11-01 15:35] VITALS: BP 133/68
[2016-11-01] MEDS: ALFUZOSIN HCL 10 MG TAB (UROXATRAL) PO SCH (17:58)
[2016-11-01 19:45] VITALS: BP 135/65
[2016-11-01] MEDS: ACETAMINOPHEN 500 MG TAB (TYLENOL) PO SCH (20:37)
[2016-11-01] MEDS: diphenhydrAMINE 25 MG TAB (BENADRYL) PO SCH (20:37)
[2016-11-01] MEDS: CYANOCOBALAMIN 500 MCG TAB (VITAMIN B-12) PO SCH (20:37)
[2016-11-01] MEDS: ATORVASTATIN 40 MG (LIPITOR) TABLET PO SCH (20:37)
[2016-11-01] MEDS: FOLIC ACID 1 MG TAB PO SCH (20:37)
[2016-11-01] MEDS: POLYETHYLENE GLYCOL 17 GM (MIRALAX) PACK PO SCH (20:38)
[2016-11-02 00:10] VITALS: BP 118/60
[2016-11-02] MEDS: aCETylcysteine 20% (MUCOMYST) 30ML SOLN VIAL INH SCH ×4 (02:51→22:13)
[2016-11-02] MEDS: RT-ALBUTEROL/IPRATROPIUM 3 ML (DUONEB) VIAL INH SCH ×7 (02:51→22:00)
[2016-11-02 04:20] VITALS: BP 133/89
[2016-11-02] MEDS: inSUlin (REGULAR) HUMAN 1 UNIT/0.01 ML (CHARGE PER UNIT) SC SCH ×4 (05:31→20:33)
[2016-11-02] MEDS: RT-BUDESONIDE NEBS 0.5 MG/2ML (PULMICORT) AMP INH SCH ×3 (06:33→19:23)
[2016-11-02 07:02] LABS: MEAN PLATELET VOLUME 10.4 FL (7.4-10.4); RED BLOOD COUNT 2.93 10^6/uL (4.35-5.85); RED CELL DISTRIBUTION WIDTH 16.7 % (10.0-14.5); WHITE BLOOD COUNT 2.9 10^3/uL (4.3-11.0)
[2016-11-02 07:10] LABS: INR 1.7 (0.8-1.4)
[2016-11-02] MEDS ORDERED: FUROSEMIDE 40 MG/4 ML INJ (LASIX) IVP ONE (07:15)
[2016-11-02] MEDS: ACETAMINOPHEN 325 MG TABLET/CAPLET (TYLENOL) PO PRN ×2 (07:21→22:44)
[2016-11-02 07:22] LABS: ALANINE AMINOTRANSFERASE 19 U/L (0-55); ALBUMIN 3.4 G/DL (3.2-4.5); ANION GAP 7 MMOL/L (5-14); ASPARTATE AMINO TRANSFERASE 28 U/L (5-34); BILIRUBIN,TOTAL 1.5 MG/DL (0.1-1.0); BLOOD UREA NITROGEN 20 MG/DL (7-18); BUN/CREATININE RATIO 19; CALCIUM 8.1 MG/DL (8.5-10.1); CARBON DIOXIDE 25 MMOL/L (21-32); CHLORIDE 107 MMOL/L (98-107); CREATININE SERUM 1.07 MG/DL (0.60-1.30); GFR ESTIMATED > 60; GLUCOSE 94 MG/DL (70-105); POTASSIUM 4.1 MMOL/L (3.6-5.0); SODIUM 139 MMOL/L (135-145); TOTAL PROTEIN 5.9 G/DL (6.4-8.2)
--- NOTE | 2016-11-02 07:55 | Progress Note (SOAP) ---
Subjective Subjective/Events-last exam PT REPORTS THAT HE STILL DID NOT SLEEP WELL LAST NIGHT. HE REPORTS CONTINUED SHORTNESS OF BREATH. Review of Systems General: No Chills, Fatigue, Malaise HEENT: No Head Aches Pulmonary: Dyspnea, Cough Cardiovascular: No: Chest Pain, Palpitations Gastrointestinal: No: Abdominal Pain, Nausea Genitourinary: Other (WAGGONER) Neurological: Weakness, No: Confusion Objective Exam Vital Signs Date Time Temp Pulse Resp B/P (MAP) Pulse Ox O2 Delivery O2 Flow Rate FiO2 11/02/16 06:42 97 8.00 11/02/16 06:33 95 8.00 11/02/16 04:20 98.6 80 18 133/89 92 High Flow NC 8.00 11/02/16 02:51 91 8.00 11/02/16 00:10 98.8 80 18 118/60 92 High Flow NC 8.00 11/01/16 22:22 90 8.00 11/01/16 20:40 High Flow N/C 8.00 95 11/01/16 19:45 97.7 112 24 135/65 92 High Flow NC 8.00 11/01/16 18:53 94 11/01/16 18:39 95 8.00 11/01/16 18:34 92 8.00 11/01/16 15:35 98.5 87 20 133/68 95 High Flow NC 8.00 11/01/16 14:00 94 8.00 11/01/16 13:00 81 11/01/16 12:00 97.7 75 18 /74 94 High Flow NC 8.00 11/01/16 10:34 93 8.00 11/01/16 08:34 96.2 84 18 138/74 91 High Flow NC 8.00 11/01/16 08:00 94 High Flow N/C 8.00 94 I & O 11/02/16 07:00 Intake Total 3894.00 ml Output Total 1875 ml Balance 2019.00 ml Capillary Refill : Less Than 3 Seconds General Appearance: No Apparent Distress, WD/WN HEENT: PERRL/EOMI, Pharynx Normal Neck: Full Range of Motion, Supple Respiratory: Chest Non Tender, Decreased Breath Sounds, Wheezing Cardiovascular: Irregularly Irregular Gastrointestinal: normal bowel sounds, non tender, soft, no organomegaly, no pulsatile mass Neurologic/Psychiatric: Alert, Oriented x3, No Motor/Sensory Deficits, Normal Mood/Affect (IRRITABLE) Skin: Warm/Dry Results Lab Laboratory Tests 11/01/16 08:56: Prothrombin Time 24.6H, INR Comment 2.2H 11/01/16 10:49: Glucometer 292H 11/01/16 12:05: Vancomycin Level Trough 10.5 11/01/16 14:23: Glucometer 241H 11/01/16 20:56: Glucometer 108 11/02/16 05:30: Glucometer 95 11/02/16 06:51: White Blood Count 2.9L, Red Blood Count 2.93L, Hemoglobin 9.3L, Hematocrit 30L, Mean Corpuscular Volume 103H, Mean Corpuscular Hemoglobin 32, Mean Corpuscular Hemoglobin Concent 31L, Red Cell Distribution Width 16.7H, Platelet Count 110L, Mean Platelet Volume 10.4, Prothrombin Time 20.0H, INR Comment 1.7H, Sodium Level 139, Potassium Level 4.1, Chloride Level 107, Carbon Dioxide Level 25, Anion Gap 7, Blood Urea Nitrogen 20H, Creatinine 1.07, Estimat Glomerular Filtration Rate > 60, BUN/Creatinine Ratio 19, Glucose Level 94, Calcium Level 8.1L, Total Bilirubin 1.5H, Aspartate Amino Transf (AST/SGOT) 28, Alanine Aminotransferase (ALT/SGPT) 19, Alkaline Phosphatase 74, Total Protein 5.9L, Albumin 3.4 Microbiology 10/30/16 Blood Culture - Preliminary, Resulted Staph, Coag Neg (Spike Maker) Streptococcus Viridans 10/30/16 Gram Stain - Final, Complete 10/30/16 Sputum Culture - Final, Complete Usual/normal kamla isolated. Assessment/Plan Assessment/Plan Assess & Plan/Chief Complaint PNEUMONIA DYSPNEA HYPOXEMIA TRANSVERSE MYELITIS - CHRONIC PERIPHERAL NEUROPATHY ATRIAL FIBRILLATION CHRONIC ANTICOAGULATION PNEUMONIA - WITH COPD - PT ON OXYGEN CONTINUE WITH TREATMENT - PNEUMONIA PROTOCOL, WILL ADJUST MEDICATIONS INDICATED BY SYMPTOMS AND SPUTUM CULTURE. BREATHING TREATMENTS PER MAT PROTOCOL, WEAN OXYGEN ABLE. - CONTINUE WITH CURRENT TREATMENT TRANSVERSE MYELITIS - CHRONIC - SUPPORTIVE CARE, START THERAPY TODAY. AFIB - RATE CONTROLLED - CONTINUE WITH COUMADIN ONCE INR NORMALIZES TO THERAPEUTIC LEVELS. CHECK CHEST XRAY TOMORROW. HEART FAILURE - EXTRA DOSE OF IV LASIX TODAY Clinical Quality Measures DVT/VTE Risk/Contraindication: Risk Factor Score Per Nursin RFS Level Per Nursing on Admit: 4+=Very High KELLY BEDOLLA MD Nov 02, 2016 07:55
[2016-11-02 08:00] VITALS: BP 133/89
[2016-11-02] MEDS: MAGNESIUM OXIDE (MAG-OX)400 MG TAB PO SCH (09:06)
[2016-11-02] MEDS: FUROSEMIDE 40 MG (LASIX) TAB PO SCH (09:06)
[2016-11-02] MEDS: KCL 20 MEQ TAB (K-DUR) PO SCH (09:06)
[2016-11-02] MEDS: guaiFENesin (MUCINEX) 600 MG TAB PO SCH ×2 (09:06→20:00)
[2016-11-02] MEDS: inSUlin DETERMIR 1 UNIT/0.01 ML (LEVEMIR) CHARGE PER UNIT SQ SCH (09:07)
[2016-11-02] MEDS: LEVOFLOXACIN 750 MG TAB (LEVAQUIN) PO SCH (11:28)
[2016-11-02 12:00] VITALS: BP 137/72
--- NOTE | 2016-11-02 12:24 | Physical Therapy Daily Note ---
PT Daily Note-Current Subjective Patient in good spirits today with family present and agrees to PT. Patient states, "I will only walk to the shower!" Pain Numeric Pain Scale: 0-No Pain Location: No Pain Reported Mental Status Patient Orientation: Normal For Age Attachments: Oxygen (8L HF NC) Transfers Functional [place] Measure 0=Not Assessed/NA 4=Minimal Assistance 1=Total Assistance 5=Supervision or Setup 2=Maximal Assistance 6=Modified [place] 3=Moderate Assistance 7=Complete IndependenceIRFPAI Quality Coding Scale 6 Independent with activity with or without an assistive device 5 Patient requires set up or clean up by helper. Patient completes activity by themselves 4 Supervision or touching assist (CGA). [place] provide cues , steadying assist 3 The helper provides less than half the effort to complete the activity 2 The helper provides more than half the effort to complete the activity 1 Dependent. The helper does all the effort to complete an activity 7 Patient refused to complete or attempt activity 9 The patient did not perform the activity before the current illness or injury 88 Not attempted due to Medical conditions or safety concerns Transfers (B, C, W/C) (FIM): 4 Scootin Supine to/from Sit: 4 Sit to/from Stand: 4 CGA for safety with gait belt in place Assessment Patient requires time to complete all functional tasks due to SOA with minimal activity. PT to increase activity as patient tolerates/permits. PT Group Home Goals Information Clerk [employer] Goals PT Information Clerk [employer] Goals Time Frame: Nov 09, 2016 Transfers (B,C,W/C) (FIM): 5 Gait (FIM): 1 Gait distance (FIM): 1=up to 49 ft Distance: 25' Gait Level of Assist: 5 Gait Assistive Device: FWW PT Plan Treatment/Plan Treatment Plan: Continue Plan of Care Treatment Plan: Bed Mobility, Education, Functional Activity Gi, Functional Strength, Gait, Safety, Therapeutic Exercise, Transfers Treatment Duration: Nov 09, 2016 Visits Per Week: 5-6 Time/GCodes Time In: 1050 Time Out: 1105 Total Billed Treatment Time: 15 Total Billed Treatment 1 visit FA 15 min MARIO MCCARTHY PT Nov 02, 2016 12:24
[2016-11-02] MEDS: CEFEPIME 2 GM/NS 50 ML IVPB IV SCH ×2 (14:11)
[2016-11-02 15:45] VITALS: BP 126/75
[2016-11-02] MEDS: warFARin 2 MG (COUMADIN) TAB PO SCH (17:54)
[2016-11-02] MEDS: ALFUZOSIN HCL 10 MG TAB (UROXATRAL) PO SCH (17:54)
[2016-11-02] MEDS: POLYETHYLENE GLYCOL 17 GM (MIRALAX) PACK PO SCH (19:59)
[2016-11-02] MEDS: CYANOCOBALAMIN 500 MCG TAB (VITAMIN B-12) PO SCH (20:00)
[2016-11-02] MEDS: diphenhydrAMINE 25 MG TAB (BENADRYL) PO SCH (20:00)
[2016-11-02] MEDS: ACETAMINOPHEN 500 MG TAB (TYLENOL) PO SCH (20:00)
[2016-11-02] MEDS: ATORVASTATIN 40 MG (LIPITOR) TABLET PO SCH (20:00)
[2016-11-02] MEDS: FOLIC ACID 1 MG TAB PO SCH (20:00)
[2016-11-02 20:10] VITALS: BP 134/75
[2016-11-03] VITALS: BP 114/66
[2016-11-03] MEDS: RT-ALBUTEROL/IPRATROPIUM 3 ML (DUONEB) VIAL INH SCH ×6 (02:00→22:07)
[2016-11-03] MEDS: aCETylcysteine 20% (MUCOMYST) 30ML SOLN VIAL INH SCH ×3 (02:33→22:07)
[2016-11-03 04:00] VITALS: BP 126/74
[2016-11-03] MEDS: inSUlin (REGULAR) HUMAN 1 UNIT/0.01 ML (CHARGE PER UNIT) SC SCH ×4 (05:49→20:37)
[2016-11-03] MEDS: RT-BUDESONIDE NEBS 0.5 MG/2ML (PULMICORT) AMP INH SCH ×2 (07:43→18:35)
[2016-11-03 08:00] VITALS: BP 139/75
--- NOTE | 2016-11-03 08:28 | Physical Therapy Daily Note ---
PT Daily Note-Current Subjective Pt adamantly refused any attempt at treatment. Pt yelled "No! GET OUT!" Nurse heard pt and in agreement. Transfers Functional [place] Measure 0=Not Assessed/NA 4=Minimal Assistance 1=Total Assistance 5=Supervision or Setup 2=Maximal Assistance 6=Modified [place] 3=Moderate Assistance 7=Complete IndependenceIRFPAI Quality Coding Scale 6 Independent with activity with or without an assistive device 5 Patient requires set up or clean up by helper. Patient completes activity by themselves 4 Supervision or touching assist (CGA). [place] provide cues , steadying assist 3 The helper provides less than half the effort to complete the activity 2 The helper provides more than half the effort to complete the activity 1 Dependent. The helper does all the effort to complete an activity 7 Patient refused to complete or attempt activity 9 The patient did not perform the activity before the current illness or injury 88 Not attempted due to Medical conditions or safety concerns PT Repairer And Checker Goals Repairer And Checker Goals PT Long-Term Goals Time Frame: Nov 09, 2016 Transfers (B,C,W/C) (FIM): 5 Gait (FIM): 1 Gait distance (FIM): 1=up to 49 ft Distance: 25' Gait Level of Assist: 5 Gait Assistive Device: FWW PT Plan Treatment/Plan Treatment Plan: Continue Plan of Care Treatment Plan: Bed Mobility, Education, Functional Activity Gi, Functional Strength, Gait, Safety, Therapeutic Exercise, Transfers Treatment Duration: Nov 09, 2016 Visits Per Week: 5-6 Time/GCodes Time In: 820 Time Out: 821 Total Billed Treatment Time: 0 Total Billed Treatment No treatment. TIARA MCKEON CPTA Nov 03, 2016 08:28
[2016-11-03 08:31] LABS: INR 1.5 (0.8-1.4); PROTHROMBIN TIME PATIENT 18.1 SEC (12.2-14.7)
[2016-11-03] MEDS: FUROSEMIDE 40 MG (LASIX) TAB PO SCH (08:59)
[2016-11-03] MEDS: guaiFENesin (MUCINEX) 600 MG TAB PO SCH ×2 (08:59→20:37)
[2016-11-03] MEDS: KCL 20 MEQ TAB (K-DUR) PO SCH (09:00)
[2016-11-03] MEDS: MAGNESIUM OXIDE (MAG-OX)400 MG TAB PO SCH (09:00)
[2016-11-03] MEDS: inSUlin DETERMIR 1 UNIT/0.01 ML (LEVEMIR) CHARGE PER UNIT SQ SCH (09:00)
[2016-11-03] MEDS ORDERED: FUROSEMIDE 40 MG/4 ML INJ (LASIX) IVP NR (10:45)
[2016-11-03] MEDS ORDERED: methylPREDNISolone 40 MG/ML (Solu-MEDROL) VIAL IV NR (10:46)
[2016-11-03] MEDS: LEVOFLOXACIN 750 MG TAB (LEVAQUIN) PO SCH (11:13)
--- NOTE | 2016-11-03 11:36 | Progress Note (SOAP) ---
Subjective Subjective/Events-last exam PT REPORTS THAT HE FEELS AWFUL TODAY. PER NURSING STAFF, RICARDO REFUSED HIS BREATHING TREATMENTS ALL NIGHT LAST NIGHT. HE ALSO REFUSED SOME OF HIS MEDICATIONS LAST NIGHT. THIS MORNING HE STATES THAT HE IS NOT BREATHING WELL, HE FEELS LIKE HE IS DYING THIS MORNING. Review of Systems General: Fatigue, Malaise Pulmonary: Dyspnea, Cough Cardiovascular: No: Chest Pain, Palpitations Gastrointestinal: No: Abdominal Pain, Nausea Musculoskeletal: back pain, leg pain (WEAKNESS) Neurological: Other (DEPRESSED, IRRITABLE), Weakness Objective Exam Vital Signs Date Time Temp Pulse Resp B/P (MAP) Pulse Ox O2 Delivery O2 Flow Rate FiO2 11/03/16 10:16 86 20 95 40.00 11/03/16 08:00 High Flow N/C 8.00 11/03/16 08:00 99.3 78 22 139/75 96 High Flow NC 8.00 11/03/16 07:50 95 11/03/16 07:48 95 8.00 11/03/16 07:44 95 8.00 11/03/16 04:00 99.9 76 20 126/74 97 High Flow NC 8.00 11/03/16 01:50 99.9 11/03/16 00:00 100.4 86 20 114/66 96 High Flow NC 8.00 11/02/16 23:28 100.4 11/02/16 23:28 100.4 11/02/16 22:44 101.2 11/02/16 22:30 101.2 11/02/16 22:00 101.5 11/02/16 20:10 100.7 89 24 134/75 95 High Flow NC 8.00 11/02/16 20:00 High Flow N/C 8.00 11/02/16 19:23 94 8.00 11/02/16 15:45 98.1 84 20 126/75 91 High Flow NC 8.00 11/02/16 14:47 95 8.00 11/02/16 14:42 95 8.00 11/02/16 12:00 97.5 78 24 137/72 96 High Flow NC 8.00 I & O 11/03/16 07:00 Intake Total 2870 ml Output Total 2950 ml Balance -80 ml Capillary Refill : Less Than 3 Seconds General Appearance: Mild Distress (DUE TO INCREASED WORK OF BREATHING ) HEENT: PERRL/EOMI Neck: Full Range of Motion, Supple Respiratory: Decreased Breath Sounds, Wheezing (THROUGHOUT) Cardiovascular: Irregularly Irregular Gastrointestinal: normal bowel sounds, non tender, soft, no organomegaly, no pulsatile mass Neurologic/Psychiatric: Alert, Oriented x3, Other (IRRITATED, IRRITABLE) Skin: Warm/Dry Results Lab Laboratory Tests 11/02/16 14:17: Glucometer 209H 11/02/16 20:33: Glucometer 72 11/03/16 05:27: Glucometer 67L 11/03/16 08:00: Prothrombin Time 18.1H, INR Comment 1.5H 11/03/16 09:45: Glucometer 108 Microbiology 10/30/16 Blood Culture - Preliminary, Resulted Staph, Coag Neg (Entry Level Project Engineer) Streptococcus Viridans 10/30/16 Gram Stain - Final, Complete 10/30/16 Sputum Culture - Final, Complete Usual/normal kamla isolated. Assessment/Plan Assessment/Plan Assess & Plan/Chief Complaint PNEUMONIA DYSPNEA HYPOXEMIA TRANSVERSE MYELITIS - CHRONIC PERIPHERAL NEUROPATHY ATRIAL FIBRILLATION CHRONIC ANTICOAGULATION PNEUMONIA - WITH COPD - PT ON OXYGEN CONTINUE WITH TREATMENT - PNEUMONIA PROTOCOL - STOP VANCOMYCIN, WILL ADJUST MEDICATIONS INDICATED BY SYMPTOMS AND SPUTUM CULTURE. BREATHING TREATMENTS PER MAT PROTOCOL, START BIPAP TODAY TO DECREASE WORK PT HAS TO DO TO BREATHE. TRANSVERSE MYELITIS - CHRONIC - SUPPORTIVE CARE, STARTED THERAPY AFIB - RATE CONTROLLED - CONTINUE WITH COUMADIN - MONITOR INR DAILY. CHECK CHEST XRAY TOMORROW. HEART FAILURE - ANOTHER EXTRA DOSE OF IV LASIX TODAY Clinical Quality Measures DVT/VTE Risk/Contraindication: Risk Factor Score Per Nursin RFS Level Per Nursing on Admit: 4+=Very High KELLY BEDOLLA MD Nov 03, 2016 11:36
[2016-11-03 12:00] VITALS: BP 135/76
[2016-11-03] MEDS ORDERED: TROUGH ORDER-PHARMACY XX NR (12:00)
[2016-11-03] MEDS: methylPREDNISolone 125 MG (Solu-MEDROL) VIAL IVP SCH ×2 (13:47→18:29)
[2016-11-03] MEDS: CEFEPIME 2 GM/NS 50 ML IVPB IV SCH ×2 (15:46)
[2016-11-03 15:53] VITALS: BP 121/65
[2016-11-03] MEDS: RT-ADVAIR HFA 115/21 MCG PER PUFF IH SCH ×2 (15:53→20:00)
[2016-11-03] MEDS: warFARin 2 MG (COUMADIN) TAB PO SCH (17:23)
[2016-11-03] MEDS: ALFUZOSIN HCL 10 MG TAB (UROXATRAL) PO SCH (17:23)
[2016-11-03 20:12] VITALS: BP 122/68
[2016-11-03] MEDS: ACETAMINOPHEN 500 MG TAB (TYLENOL) PO SCH (20:37)
[2016-11-03] MEDS: ATORVASTATIN 40 MG (LIPITOR) TABLET PO SCH (20:37)
[2016-11-03] MEDS: POLYETHYLENE GLYCOL 17 GM (MIRALAX) PACK PO SCH (20:37)
[2016-11-03] MEDS: CYANOCOBALAMIN 500 MCG TAB (VITAMIN B-12) PO SCH (20:37)
[2016-11-03] MEDS: diphenhydrAMINE 25 MG TAB (BENADRYL) PO SCH (20:37)
[2016-11-03] MEDS: FOLIC ACID 1 MG TAB PO SCH (20:37)
[2016-11-04] VITALS: BP 120/72
[2016-11-04] MEDS: methylPREDNISolone 125 MG (Solu-MEDROL) VIAL IVP SCH ×4 (00:36→17:18)
[2016-11-04] MEDS: RT-ALBUTEROL/IPRATROPIUM 3 ML (DUONEB) VIAL INH SCH ×5 (02:07→21:20)
[2016-11-04 04:00] VITALS: BP 105/58
[2016-11-04 05:32] LABS: RED BLOOD COUNT 3.07 10^6/uL (4.35-5.85); RED CELL DISTRIBUTION WIDTH 15.9 % (10.0-14.5)
[2016-11-04 05:34] LABS: WHITE BLOOD COUNT 1.2 10^3/uL (4.3-11.0)
[2016-11-04 05:42] LABS: INR 1.5 (0.8-1.4); PROTHROMBIN TIME PATIENT 17.6 SEC (12.2-14.7)
[2016-11-04 05:53] LABS: ALANINE AMINOTRANSFERASE 20 U/L (0-55); ALBUMIN 3.4 G/DL (3.2-4.5); ANION GAP 9 MMOL/L (5-14); ASPARTATE AMINO TRANSFERASE 25 U/L (5-34); BILIRUBIN,TOTAL 1.4 MG/DL (0.1-1.0); BLOOD UREA NITROGEN 33 MG/DL (7-18); BUN/CREATININE RATIO 29; CALCIUM 8.3 MG/DL (8.5-10.1); CARBON DIOXIDE 25 MMOL/L (21-32); CHLORIDE 98 MMOL/L (98-107); CREATININE SERUM 1.15 MG/DL (0.60-1.30); GFR ESTIMATED > 60; GLUCOSE 325 MG/DL (70-105); SODIUM 132 MMOL/L (135-145); TOTAL PROTEIN 6.2 G/DL (6.4-8.2)
[2016-11-04] MEDS: inSUlin (REGULAR) HUMAN 1 UNIT/0.01 ML (CHARGE PER UNIT) SC SCH ×4 (06:14→20:58)
[2016-11-04] MEDS: RT-ADVAIR HFA 115/21 MCG PER PUFF IH SCH ×3 (07:34→19:34)
[2016-11-04 08:00] VITALS: BP 116/53
[2016-11-04] MEDS: KCL 20 MEQ TAB (K-DUR) PO SCH ×2 (08:00→08:10)
[2016-11-04] MEDS: MAGNESIUM OXIDE (MAG-OX)400 MG TAB PO SCH ×2 (08:10→08:16)
[2016-11-04] MEDS: inSUlin DETERMIR 1 UNIT/0.01 ML (LEVEMIR) CHARGE PER UNIT SQ SCH (08:10)
[2016-11-04] MEDS: guaiFENesin (MUCINEX) 600 MG TAB PO SCH ×2 (08:10→20:54)
[2016-11-04] MEDS: FUROSEMIDE 40 MG (LASIX) TAB PO SCH (08:10)
--- NOTE | 2016-11-04 08:42 | Diagnostic Imaging Report ---
INDICATION: Dyspnea Comparison: 11/01/2016 Technique: 2 radiographs of the chest dated November 04, 2016. Findings: Post surgical changes of a CABG are again noted. The cardiac silhouette is enlarged, though stable. Mild central pulmonary vascular congestion, appearing improved from the prior examination. Improved prominence of the pulmonary interstitium. Small bibasilar pleural effusions, improved from the prior examination. No new focal pulmonary opacity. No pneumothorax. Scattered osseous degenerative changes without acute osseous abnormality. IMPRESSION: Improving congestive heart failure with interstitial edema without adverse change. Dictated by: Dictated on workstation # [id number]
--- NOTE | 2016-11-04 09:02 | Progress Note (SOAP) ---
Subjective Subjective/Events-last exam PT REPORTS THAT HE IS FEELING SIGNIFICANTLY BETTER THIS MORNING. HE IS STILL SHORT OF BREATH, BUT NOT MUCH YESTERDAY. HIS SON REPORTS THAT RICARDO SLEPT WELL YESTERDAY ON THE BIPAP. Review of Systems General: No Chills, Fatigue HEENT: No Head Aches Pulmonary: Dyspnea, No Cough Cardiovascular: No: Chest Pain Gastrointestinal: No: Abdominal Pain, Nausea Genitourinary: No Dysuria, Incontinence Neurological: Weakness, No: Confusion Objective Exam Vital Signs Date Time Temp Pulse Resp B/P (MAP) Pulse Ox O2 Delivery O2 Flow Rate FiO2 11/04/16 07:34 92 8.00 11/04/16 04:00 97.1 73 24 105/58 92 Nasal Cannula 8.00 11/04/16 02:09 91 8.00 11/04/16 00:03 17 40.00 11/04/16 00:00 98.0 78 19 120/72 92 NIV/Bilevel 8.00 11/03/16 22:07 76 20 95 40.00 11/03/16 20:35 NIV Bilevel 40.00 11/03/16 20:19 87 21 94 40.00 11/03/16 20:12 98.7 78 24 122/68 96 NIV/Bilevel 8.00 11/03/16 18:42 89 19 93 40.00 11/03/16 15:54 98 23 95 40.00 11/03/16 15:53 98.9 81 24 121/65 94 NIV/CPAP 8.00 11/03/16 12:00 98.9 83 24 135/76 97 High Flow NC 8.00 11/03/16 10:16 86 20 95 40.00 I & O 11/04/16 07:00 Intake Total 1070 ml Output Total 4050 ml Balance -2980 ml Capillary Refill : Less Than 3 Seconds General Appearance: No Apparent Distress, WD/WN HEENT: PERRL/EOMI, Pharynx Normal Neck: Full Range of Motion, Supple Respiratory: Chest Non Tender, Lungs Clear, Normal Breath Sounds, No Accessory Muscle Use Cardiovascular: Irregularly Irregular Gastrointestinal: normal bowel sounds, non tender, soft, no organomegaly, no pulsatile mass Extremity: Normal Capillary Refill, No Calf Tenderness, No Pedal Edema Neurologic/Psychiatric: Alert, Oriented x3, Normal Mood/Affect Skin: Warm/Dry Lymphatic: No Adenopathy Results Lab Laboratory Tests 11/03/16 09:45: Glucometer 108 11/03/16 15:55: Glucometer 237H 11/03/16 20:15: Glucometer 333H 11/04/16 05:00: White Blood Count 1.2*L, Red Blood Count 3.07L, Hemoglobin 9.8L, Hematocrit 31L , Mean Corpuscular Volume 100H, Mean Corpuscular Hemoglobin 32, Mean Corpuscular Hemoglobin Concent 32, Red Cell Distribution Width 15.9H, Platelet Count 103L, Mean Platelet Volume 11.0H, Prothrombin Time 17.6H, INR Comment 1.5H , Sodium Level 132L, Potassium Level 4.0, Chloride Level 98, Carbon Dioxide Level 25, Anion Gap 9, Blood Urea Nitrogen 33H, Creatinine 1.15, Estimat Glomerular Filtration Rate > 60, BUN/Creatinine Ratio 29, Glucose Level 325H, Calcium Level 8.3L, Total Bilirubin 1.4H, Aspartate Amino Transf (AST/SGOT) 25, Alanine Aminotransferase (ALT/SGPT) 20, Alkaline Phosphatase 77, Total Protein 6.2L, Albumin 3.4 11/04/16 05:51: Glucometer 327H Microbiology 10/30/16 Blood Culture - Preliminary, Resulted Staph, Coag Neg (Medical Center Director) Streptococcus Viridans 11/04/16 Influenza Types A,B Antigen (JOSÉ) - Final, Complete Assessment/Plan Assessment/Plan Assess & Plan/Chief Complaint PNEUMONIA DYSPNEA HYPOXEMIA TRANSVERSE MYELITIS - CHRONIC PERIPHERAL NEUROPATHY ATRIAL FIBRILLATION CHRONIC ANTICOAGULATION PNEUMONIA - WITH COPD - PT ON OXYGEN CONTINUE WITH TREATMENT - PNEUMONIA PROTOCOL - STOP VANCOMYCIN AND STOP LEVAQUIN - CEFEPIME TO STOP TODAY. BREATHING TREATMENTS PER MAT PROTOCOL, - PT IMPROVED FROM YESTERDAY - WEAN OXYGEN ABLE. TRANSVERSE MYELITIS - CHRONIC - SUPPORTIVE CARE, STARTED THERAPY AFIB - RATE CONTROLLED - CONTINUE WITH COUMADIN - MONITOR INR DAILY. HEART FAILURE - CONTINUE WITH ORAL LASIX IMPROVED - HOPEFULLY WILL BE ABLE TO DISCHARGE TO [facility] TODAY. Clinical Quality Measures DVT/VTE Risk/Contraindication: Risk Factor Score Per Nursin RFS Level Per Nursing on Admit: 4+=Very High KELLY BEDOLLA MD Nov 04, 2016 09:02
[2016-11-04 12:00] VITALS: BP 111/69
[2016-11-04] MEDS ORDERED: inSUlin ASPART (NovoLOG) 1 UNIT/0.01 ML (CHARGE PER UNIT) ONE (14:28)
[2016-11-04] MEDS ORDERED: inSUlin ASPART (NovoLOG) 1 UNIT/0.01 ML (CHARGE PER UNIT) SC SCH (14:30)
[2016-11-04] MEDS: RT-BUDESONIDE NEBS 0.5 MG/2ML (PULMICORT) AMP INH SCH ×2 (14:55→19:16)
[2016-11-04 15:47] VITALS: BP 144/76
[2016-11-04] MEDS: ALFUZOSIN HCL 10 MG TAB (UROXATRAL) PO SCH (17:18)
[2016-11-04] MEDS: warFARin 2 MG (COUMADIN) TAB PO SCH (17:18)
[2016-11-04 20:00] VITALS: BP 106/66
[2016-11-04] MEDS: diphenhydrAMINE 25 MG TAB (BENADRYL) PO SCH (20:54)
[2016-11-04] MEDS: CYANOCOBALAMIN 500 MCG TAB (VITAMIN B-12) PO SCH (20:54)
[2016-11-04] MEDS: FOLIC ACID 1 MG TAB PO SCH (20:54)
[2016-11-04] MEDS: POLYETHYLENE GLYCOL 17 GM (MIRALAX) PACK PO SCH (20:55)
[2016-11-04] MEDS: ACETAMINOPHEN 500 MG TAB (TYLENOL) PO SCH (20:55)
[2016-11-04] MEDS: ATORVASTATIN 40 MG (LIPITOR) TABLET PO SCH (20:58)
[2016-11-04] MEDS: aCETylcysteine 20% (MUCOMYST) 30ML SOLN VIAL INH SCH (21:21)
[2016-11-05 00:02] VITALS: BP 142/72
[2016-11-05] MEDS: methylPREDNISolone 125 MG (Solu-MEDROL) VIAL IVP SCH ×3 (00:08→11:33)
[2016-11-05] MEDS: RT-ALBUTEROL/IPRATROPIUM 3 ML (DUONEB) VIAL INH SCH ×3 (02:23→11:07)
[2016-11-05] MEDS: aCETylcysteine 20% (MUCOMYST) 30ML SOLN VIAL INH SCH ×2 (02:23→11:07)
[2016-11-05 05:23] LABS: BASOPHILS % (AUTO) 0 % (0-10); EOSINOPHILS % (AUTO) 0 % (0-10); LYMPHOCYTES # (AUTO) 1.1 X 10^3 (1.0-4.0); LYMPHOCYTES % (AUTO) 24 % (12-44); MEAN CORPUSCULAR HEMOGLOBIN 32 PG (25-34); MEAN CORPUSCULAR HGB CONC 33 G/DL (32-36); MEAN CORPUSCULAR VOLUME 99 FL (80-99); MEAN PLATELET VOLUME 10.4 FL (7.4-10.4); MONOCYTES # (AUTO) 0.5 X 10^3 (0.0-1.0); MONOCYTES % (AUTO) 11 % (0-12); NEUTROPHILS # (AUTO) 2.8 X 10^3 (1.8-7.8); NEUTROPHILS % (AUTO) 65 % (42-75); PLATELET COUNT 104 10^3/uL (130-400); RED BLOOD COUNT 3.21 10^6/uL (4.35-5.85); RED CELL DISTRIBUTION WIDTH 15.8 % (10.0-14.5); WHITE BLOOD COUNT 4.4 10^3/uL (4.3-11.0)
[2016-11-05] MEDS: inSUlin (REGULAR) HUMAN 1 UNIT/0.01 ML (CHARGE PER UNIT) SC SCH ×2 (05:25→11:33)
[2016-11-05 05:28] LABS: PROTHROMBIN TIME PATIENT 22.8 SEC (12.2-14.7)
[2016-11-05 05:45] LABS: ALANINE AMINOTRANSFERASE 20 U/L (0-55); ALBUMIN 3.6 G/DL (3.2-4.5); ANION GAP 10 MMOL/L (5-14); ASPARTATE AMINO TRANSFERASE 24 U/L (5-34); BLOOD UREA NITROGEN 40 MG/DL (7-18); BUN/CREATININE RATIO 39; CALCIUM 8.7 MG/DL (8.5-10.1); CARBON DIOXIDE 25 MMOL/L (21-32); CHLORIDE 103 MMOL/L (98-107); CREATININE SERUM 1.02 MG/DL (0.60-1.30); GFR ESTIMATED > 60; GLUCOSE 140 MG/DL (70-105); POTASSIUM 3.8 MMOL/L (3.6-5.0); SODIUM 138 MMOL/L (135-145); TOTAL PROTEIN 6.3 G/DL (6.4-8.2)
[2016-11-05 05:49] LABS: BAND NEUTROPHILS 6 %; EOSINOPHILS % (MANUAL) 0 %; LYMPHOCYTES % (MANUAL) 16 %; NEUTROPHILS % (MANUAL) 71 %
[2016-11-05 05:50] LABS: ANISOCYTOSIS SLIGHT; BASOPHILS % (MANUAL) 0 %; HYPOCHROMASIA SLIGHT; POIKILOCYTOSIS SLIGHT
[2016-11-05 05:51] LABS: CRENATED RBC SLIGHT
[2016-11-05] MEDS: RT-BUDESONIDE NEBS 0.5 MG/2ML (PULMICORT) AMP INH SCH (06:46)
[2016-11-05 08:00] VITALS: BP 140/76
[2016-11-05] MEDS ORDERED: PRED10TA22 PO (09:34)
[2016-11-05] MEDS ORDERED: NEBU-140 MC (09:34)
[2016-11-05] MEDS ORDERED: IPRA3AMP INH (09:34)
--- NOTE | 2016-11-05 09:37 | Discharge Summary ---
Diagnosis/Chief Complaint Date of Admission Oct 30, 2016 at 11:05 Date of Discharge Discharge Date: Nov 05, 2016 Discharge Time: 1000 Admission Diagnosis Admission Diagnosis PNEUMONIA DYSPNEA HYPOXEMIA TRANSVERSE MYELITIS - CHRONIC PERIPHERAL NEUROPATHY ATRIAL FIBRILLATION CHRONIC ANTICOAGULATION Discharge Diagnosis PNEUMONIA DYSPNEA HYPOXEMIA TRANSVERSE MYELITIS - CHRONIC PERIPHERAL NEUROPATHY ATRIAL FIBRILLATION CHRONIC ANTICOAGULATION Reason Hospital Visit PT IS AN 85 Y/O MALE WHO IS WELL KNOWN TO ME FROM CLINIC. BUD LIVES AT [facility], HAS A FRIEND/LAY OUT TECHNICIAN WHO TAKES HIM OUT OF THE FACILITY FREQUENTLY FOR TRIPS AROUND TOWN AND TO CHECK ON HIS HOME [facility]. HE HAS BEEN INCREASINGLY FRAIL AND FEELING POORLY OVER THE PAST WEEK. HE DESCRIBES A COUGH AND CONGESTION THAT SEEMS TO HAVE BEEN WORSENING OVER THE PAST 48 HOURS Discharge Summary Discharge Physical Examination Allergies: Coded Allergies: iodine (Unverified Allergy, Mild, 01/06/09) sitagliptin (Unverified Allergy, Mild, 02/27/09) Vitals & I&Os General Appearance: Alert, Oriented X3 HEENT: Atraumatic Respiratory: Clear to Auscultation, Normal Air Movement Cardiovascular: Other (IRREGULARLY IRREGULAR) Abdominal: Normal Bowel Sounds, Soft Skin: No Rashes, No Breakdown Neuro: Normal Speech Psych/Mental Status: Mental Status NL, Mood NL Hospital Course PNEUMONIA DYSPNEA HYPOXEMIA TRANSVERSE MYELITIS - CHRONIC PERIPHERAL NEUROPATHY ATRIAL FIBRILLATION CHRONIC ANTICOAGULATION PNEUMONIA - WITH COPD - PT ON OXYGEN CONTINUE WITH TREATMENT - PNEUMONIA PROTOCOL, WILL ADJUST MEDICATIONS INDICATED BY SYMPTOMS AND SPUTUM CULTURE. BREATHING TREATMENTS PER MAT PROTOCOL, WEAN OXYGEN ABLE. TRANSVERSE MYELITIS - CHRONIC - SUPPORTIVE CARE, START THERAPY TODAY. AFIB - RATE CONTROLLED - CONTINUE WITH COUMADIN ONCE INR NORMALIZES TO THERAPEUTIC LEVELS. . Pending Labs Discharge Condition at discharge IMPROVING Instructions to patient/family Please see electonic discharge instructions given to patient. Discharge Medications Reviewed and agree with Discharge Medication list on patient's Discharge Instruction sheet Clinical Quality Measures DVT/VTE Risk/Contraindication: Risk Factor Score Per Nursin RFS Level Per Nursing on Admit: 4+=Very High KELLY BEDOLLA MD Nov 05, 2016 09:37
[2016-11-05] MEDS: FUROSEMIDE 40 MG (LASIX) TAB PO SCH (10:01)
[2016-11-05] MEDS: guaiFENesin (MUCINEX) 600 MG TAB PO SCH (10:01)
[2016-11-05] MEDS: inSUlin DETERMIR 1 UNIT/0.01 ML (LEVEMIR) CHARGE PER UNIT SQ SCH (10:01)
[2016-11-05] MEDS: MAGNESIUM OXIDE (MAG-OX)400 MG TAB PO SCH (10:01)
[2016-11-05] MEDS: KCL 20 MEQ TAB (K-DUR) PO SCH (10:01)
[2016-11-05] MEDS: RT-ADVAIR HFA 115/21 MCG PER PUFF IH SCH (11:07)
[2016-11-05 14:15] VITALS: BP 140/76
[2016-11-06] MEDS ORDERED: warFARin 2 MG (COUMADIN) TAB PO SCH (18:00)
--- OUTSIDE RECORDS SUMMARY | 2016-11-13 20:20 | XMS REPORT | Continuity of Care Document ---
Author Author [facility] Organization [facility] Address Unknown Phone Unavailable Care Team Providers Care Supervisor Roving Department Name Role Phone Gabrielle Sky PCP [phone] Source Comments Some departments are not documenting in the electronic medical record. If you do not see the information that you expected, contact Release of Information in the Health Information Management department at [phone] for further assistance in locating additional records.[facility] Active Allergies and Adverse Reactions Allergen [...] Active Problems Problem Noted Date Paraparesis ([facility]) 07/19/2015 Myelopathy ([facility]) 07/19/2015 Abnormal MRI, thoracic [...] Taken Blood Pressure 115/61 08/16/2015 10:12 AM ACUTE DIALYSIS REGISTERED NURSE Pulse 61 08/16/2015 10:12 AM ACUTE DIALYSIS REGISTERED NURSE Temperature 36.4 C (97.5 F) 08/16/2015 10:12 AM ACUTE DIALYSIS REGISTERED NURSE Respiratory Rate 18 08/16/2015 10:12 AM ACUTE DIALYSIS REGISTERED NURSE Height 1.829 m (6') 08/16/2015 10:12 AM ACUTE DIALYSIS REGISTERED NURSE Weight 95.255 kg (210 lb) 08/16/2015 10:12 AM ACUTE DIALYSIS REGISTERED NURSE Body Mass Index 28.47 08/16/2015 10:12 AM ACUTE DIALYSIS REGISTERED NURSE Oxygen Saturation 94% 08/16/2015 10:12 AM ACUTE DIALYSIS REGISTERED NURSE Plan of Care Health Maintenance Due Date Last Done Comments Physical (Comprehensive) 11/23/1938 Exam Pertussis Vaccine 11/23/1942 Tetanus Vaccine 11/23/1948 Dilated Eye Exam 11/23/1949 Foot Exam 11/23/1949 Hba1c 11/23/1949 Microalbumin 11/23/1949 Shingles Vaccine 1991 Prevnar/Pneumovax (#1) 11/23/1996 Influenza Vaccine 04/05/2017 Results from Last 3 Months Not on file
--- OUTSIDE RECORDS SUMMARY | 2016-11-13 20:23 | XMS REPORT | Continuity of Care Document ---
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 07/15/2010 Ot E000.8 OTHER EXTERNAL CAUSE STATUS 07/15/2010 Ot E849.0 ACCIDENT IN HOME 07/15/2010 Ot E915 FB ENTERING OT ORIFICE 07/15/2010 Ot V58.61 ANTICOAGULANTS,LT,CURRENT USE 02/20/2011 Ot 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, EXTRANODAL SOLID OR 02/20/2011 Ot 250.00 DIAB CHINEDU WO COMPL, TYPE II OR UNSPEC TY 02/20/2011 Ot 285.9 ANEMIA NOS 02/20/2011 Ot 427.31 ATRIAL FIBRILLATION 02/20/2011 Ot 585.3 CHRONIC KIDNEY DISEASE, STAGE III (MODER 02/20/2011 Ot V58.61 ANTICOAGULANTS,LT,CURRENT USE 02/20/2011 Ot V58.67 LONG-TERM (CURRENT) USE OF INSULIN 02/20/2011 Ot V58.69 [facility] MED,LT,CURRENT USE 02/20/2011 Ot V87.41 PERSONAL HISTORY OF ANTINEOPLASTIC CHEMO 05/22/2011 Ot 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, EXTRANODAL SOLID OR 05/22/2011 Ot 250.00 DIAB CHINEDU WO COMPL, TYPE II OR UNSPEC TY 05/22/2011 Ot 285.9 ANEMIA NOS 05/22/2011 Ot 427.31 ATRIAL FIBRILLATION 05/22/2011 Ot 585.3 CHRONIC KIDNEY DISEASE, STAGE III (MODER 05/22/2011 Ot V04.81 ND FOR PROPHYLACTIC VACCIN AND INOCULATI 05/22/2011 Ot V58.61 ANTICOAGULANTS,LT,CURRENT USE 05/22/2011 Ot V58.67 LONG-TERM (CURRENT) USE OF INSULIN 05/22/2011 Ot V58.69 OTH MED,LT,CURRENT USE 05/22/2011 Ot V87.41 PERSONAL HISTORY OF ANTINEOPLASTIC CHEMO 09/17/2011 Ot V58.61 ANTICOAGULANTS,LT,CURRENT USE 09/17/2011 Ot V58.83 ENCOUNTER FOR THERAPEUTIC DRUG MONITORIN 01/03/2012 Ot 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, EXTRANODAL SOLID OR 01/03/2012 Ot 285.9 ANEMIA NOS 01/03/2012 Ot 287.5 THROMBOCYTOPENIA NOS 01/03/2012 Ot V58.61 ANTICOAGULANTS,LT,CURRENT USE 01/03/2012 Ot V58.83 ENCOUNTER FOR THERAPEUTIC DRUG MONITORIN 05/12/2012 Ot V58.61 ANTICOAGULANTS,LT,CURRENT USE 05/12/2012 Ot V58.83 ENCOUNTER FOR THERAPEUTIC DRUG MONITORIN 08/27/2012 Ot 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, EXTRANODAL SOLID OR 08/27/2012 Ot 285.9 ANEMIA NOS 08/27/2012 Ot 427.31 ATRIAL FIBRILLATION 08/27/2012 Ot 585.3 CHRONIC KIDNEY DISEASE, STAGE III (MODER 08/27/2012 Ot V58.61 ANTICOAGULANTS,LT,CURRENT USE 08/27/2012 Ot V58.69 OTH MED,LT,CURRENT USE 01/28/2013 CORNELIUSELIZABETH N Ot 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, EXTRANODAL SOLID OR 01/28/2013 CORNELIUSELIZABETH N Ot 285.9 ANEMIA NOS 01/28/2013 CORNELIUSELIZABETH N Ot 427.31 ATRIAL FIBRILLATION 01/28/2013 CORNELIUSELIZABETH OHARA N Ot 585.3 CHRONIC KIDNEY DISEASE, STAGE III (MODER 01/28/2013 CORNELIUSELIZABETH OHARA N Ot V58.61 ANTICOAGULANTS,LT,CURRENT USE 01/28/2013 CORNELIUSELIZABETH OHARA N Ot V58.69 OTH MED,LT,CURRENT USE 09/09/2013 CORNELIUSELIZABETH N Ot 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, EXTRANODAL SOLID OR 09/09/2013 CORNELIUSELIZABETH N Ot 285.9 ANEMIA NOS 09/09/2013 CORNELIUSELIZABETH N Ot 427.31 ATRIAL FIBRILLATION 09/09/2013 CORNELIUSELIZABETH N Ot 585.3 CHRONIC KIDNEY DISEASE, STAGE III (MODER 09/09/2013 CORNELIUSELIZABETH N Ot V58.61 ANTICOAGULANTS,LT,CURRENT USE 09/09/2013 ELIZABETH SHIELDS Ot V58.69 OTH MED,LT,CURRENT USE 01/13/2014 TANO HERNANDEZ MD Ot 202.80 OTH LYMPHOMAS EXTRANODAL SOLID ORGAN U 01/13/2014 TANO HERNANDEZ MD Ot 250.00 DIAB CHINEDU WO COMPL, TYPE II OR UNSPEC TY 01/13/2014 TANO HERNANDEZ MD Ot 272.0 PURE HYPERCHOLESTEROLEM 01/13/2014 TANO HERNANDEZ MD Ot 530.11 REFLUX ESOPHAGITIS 01/13/2014 TANO HERNANDEZ MD Ot 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 01/13/2014 TANO HERNANDEZ MD Ot 553.3 DIAPHRAGMATIC HERNIA 05/05/2014 ELIZABETH SHIELDS Ot 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, EXTRANODAL SOLID OR 05/05/2014 ELIZABETH SHIELDS Ot 285.9 ANEMIA NOS 05/05/2014 ELIZABETH SHIELDS Ot 427.31 ATRIAL FIBRILLATION 05/05/2014 ELIZABETH SHIELDS Ot 585.3 CHRONIC KIDNEY DISEASE, STAGE III (MODER 05/05/2014 ELIZABETH SHIELDS Ot V58.61 ANTICOAGULANTS,LT,CURRENT USE 05/05/2014 ELIZABETH SHIELDS Ot V58.69 OTH MED,LT,CURRENT USE 11/08/2014 CHIOMA SWEENEY, KELLY Sylvester Ot 201.90 11/08/2014 CHIOMA SWEENEY, KELLY Sylvester Ot 428.0 11/08/2014 CHIOMA SWEENEY, KELLY A Ot 491.21 11/08/2014 CHIOMA SWEENEY, KELLY A Ot 530.81 11/08/2014 CHIOMA SWEENEY, KELLY A Ot 562.10 11/08/2014 CHIOMA SWEENEY, KELLY A Ot 593.9 11/08/2014 CHIOMA SWEENEY, KELLY A Ot 716.90 11/08/2014 CHIOMA SWEENEY, KELLY A Ot 729.2 11/08/2014 CHIOMA SWEENEY, KELLY A Ot 920 11/08/2014 CHIOMA SWEENEY, KELLY A Ot 923.10 11/08/2014 CHIOMA SWEENEY, KELLY A Ot E849.0 11/08/2014 CHIOMA SWEENEY, KELLY A Ot E885.9 11/08/2014 KELLY BEDOLLA MD Ot V15.82 11/08/2014 KELLY BEDOLLA MD Ot V45.89 11/08/2014 KELLY BEDOLLA MD Ot V46.2 11/08/2014 KELLY BEDOLLA MD Ot V58.61 11/10/2014 KELLY BEDOLLA MD Ot 201.90 [place] DIS UNSPEC EXTRANODAL SOLID O 11/10/2014 KELLY BEDOLLA MD Ot 250.00 DIAB CHINEDU WO COMPL, TYPE II OR UNSPEC TY 11/10/2014 KELLY BEDOLLA MD Ot 285.1 AC POSTHEMORRHAG ANEMIA 11/10/2014 KELLY BEDOLLA MD Ot 285.9 11/10/2014 KELLY BEDOLLA MD Ot 356.9 IDIO PERIPH NEURPTHY NOS 11/10/2014 KELLY BEDOLLA MD Ot 401.9 HYPERTENSION NOS 11/10/2014 KELLY BEDOLLA MD Ot 427.31 ATRIAL FIBRILLATION 11/10/2014 KELLY BEDOLLA MD Ot 428.0 CONGESTIVE HEART FAILURE NOS 11/10/2014 KELLY BEDOLLA MD Ot 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.21 OBSTR CHRONIC BRONCHITIS, W (ACUTE) EXAC 11/10/2014 KELLY BEDOLLA MD Ot 530.81 ESOPHAGEAL REFLUX 11/10/2014 KELLY BEDOLLA MD Ot 562.10 DIVERTICULOSIS COLON (W/O MENT OF HEMORR 11/10/2014 KELLY BEDOLLA MD Ot 593.9 RENAL URETERAL DIS NOS 11/10/2014 KELLY BEDOLLA MD Ot 716.90 ARTHROPATHY NOS-UNSPEC 11/10/2014 KELLY BEDOLLA MD Ot 729.2 11/10/2014 KELLY BEDOLLA MD Ot 920 CONTUSION FACE/SCALP/NCK 11/10/2014 KELLY BEDOLLA MD Ot 923.10 CONTUSION OF FOREARM 11/10/2014 KELLY BEDOLLA MD Ot E849.0 ACCIDENT IN HOME 11/10/2014 KELLY BEDOLLA MD Ot E885.9 FALL FROM SLIPPING, TRIPPING, OR STUMBLI 11/10/2014 KELLY BEDOLLA MD Ot V06.1 [id number], COMBINED [ 11/10/2014 KELLY BEDOLLA MD Ot V15.82 HISTORY OF TOBACCO USE 11/10/2014 KELLY BEDOLLA MD Ot V45.89 POSTSURGICAL STATES NEC 11/10/2014 KELLY BEDOLLA MD Ot V46.2 SUPPLEMENTAL OXYGEN 11/10/2014 KELLY BEDOLLA MD Ot V58.61 ANTICOAGULANTS,LT,CURRENT USE 11/10/2014 KELLY BEDOLLA MD Ot V58.67 LONG-TERM (CURRENT) USE OF INSULIN 12/24/2014 CORNELIUS, BOBAN N Ot 201.50 12/24/2014 CORNELIUS, BOBAN N Ot 285.9 12/24/2014 CORNELIUS, BOBAN N Ot 427.31 12/24/2014 CORNELIUS, BOBAN N Ot 585.3 12/24/2014 CORNELIUS, BOBAN N Ot V58.61 12/24/2014 CORNELIUS, BOBAN N Ot V58.69 12/31/2014 CORNELIUS, BOBAN N Ot 201.50 12/31/2014 CORNELIUS, BOBAN N Ot 285.9 12/31/2014 CORNELIUS, BOBAN N Ot 427.31 12/31/2014 CORNELIUS, BOBAN N Ot 585.3 12/31/2014 CORNELIUS, BOBAN N Ot V58.61 12/31/2014 CORNELIUS, BOBAN N Ot V58.69 01/03/2015 CORNELIUS, BOBAN N Ot 201.50 01/03/2015 CORNELIUS, BOBAN N Ot 285.9 01/03/2015 CORNELIUS, BOBAN N Ot 427.31 01/03/2015 CORNELIUS, BOBAN N Ot 585.3 01/03/2015 CORNELIUS, BOBAN N Ot V58.61 01/03/2015 CORNELIUS, BOBAN N Ot V58.69 01/04/2015 CORNELIUS, BOBAN N Ot 201.50 01/04/2015 CORNELIUS, BOBAN N Ot 285.9 01/04/2015 CORNELIUS, BOBAN N Ot 427.31 01/04/2015 CORNELIUS, BOBAN N Ot 585.3 01/04/2015 CORNELIUS, BOBAN N Ot V58.61 01/04/2015 CORNELIUS, BOBAN N Ot V58.69 02/07/2015 CORNELIUS, BOBAN N Ot 201.50 02/07/2015 CORNELIUS, BOBAN N Ot 285.9 02/07/2015 CORNELIUS, BOBAN N Ot 427.31 02/07/2015 CORNELIUS, BOBAN N Ot 585.3 02/07/2015 CORNELIUS, BOBAN N Ot V58.61 02/07/2015 CORNELIUS, BOBAN N Ot V58.69 02/10/2015 CORNELIUS, BOBAN N Ot 201.50 02/10/2015 CORNELIUS, BOBAN N Ot 285.9 02/10/2015 CORNELIUS, BOBAN N Ot 427.31 02/10/2015 CORNELIUS, BOBAN N Ot 585.3 02/10/2015 CORNELIUS, BOBAN N Ot V58.61 02/10/2015 CORNELIUS, BOBAN N Ot V58.69 03/31/2015 CORNELIUS, BOBAN N Ot 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, EXTRANODAL SOLID OR 03/31/2015 CORNELIUS, BOBAN N Ot 285.9 ANEMIA NOS 03/31/2015 CORNELIUS, BOBAN N Ot 427.31 ATRIAL FIBRILLATION 03/31/2015 CORNELIUS, BOBAN N Ot 585.3 CHRONIC KIDNEY DISEASE, STAGE III (MODER 03/31/2015 CORNELIUS, BOBAN N Ot V58.61 ANTICOAGULANTS,LT,CURRENT USE 03/31/2015 CORNELIUS, BOBAN N Ot V58.69 OTH MED,LT,CURRENT USE 04/01/2015 CORNELIUS, BOBAN N Ot 201.50 04/01/2015 CORNELIUS, BOBAN N Ot 285.9 04/01/2015 CORNELIUS, BOBAN N Ot 427.31 04/01/2015 CORNELIUS, BOBAN N Ot 585.3 04/01/2015 CORNELIUS, BOBAN N Ot V58.61 04/01/2015 CORNELIUS, BOBAN N Ot V58.69 04/04/2015 CORNELIUS, BOBAN N Ot 201.50 04/04/2015 CORNELIUS, BOBAN N Ot 285.9 04/04/2015 CORNELIUS, BOBAN N Ot 427.31 04/04/2015 CORNELIUS, BOBAN N Ot 585.3 04/04/2015 CORNELIUS, BOBAN N Ot V58.61 04/04/2015 CORNELIUS, BOBAN N Ot V58.69 04/26/2015 CORNELIUS, BOBAN N Ot 201.50 04/26/2015 CORNELIUS, BOBAN N Ot 285.9 04/26/2015 CORNELIUS, BOBAN N Ot 427.31 04/26/2015 CORNELIUS, BOBAN N Ot 585.3 04/26/2015 CORNELIUS, BOBAN N Ot V58.61 04/26/2015 CORNELIUS, BOBAN N Ot V58.69 05/04/2015 CORNELIUS, BOBAN N Ot 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, EXTRANODAL SOLID OR 05/04/2015 CORNELIUS, BOBAN N Ot 285.9 ANEMIA NOS 05/04/2015 CORNELIUS, BOBAN N Ot 427.31 ATRIAL FIBRILLATION 05/04/2015 CORNELIUS, BOBAN N Ot 585.3 CHRONIC KIDNEY DISEASE, STAGE III (MODER 05/04/2015 CORNELIUS, BOBAN N Ot V58.61 ANTICOAGULANTS,LT,CURRENT USE 05/04/2015 CORNELIUS, BOBAN N Ot V58.69 OTH MED,LT,CURRENT USE 07/27/2015 CORNELIUS, BOBAN N Ot C81.10 07/27/2015 CORNELIUS, BOBAN N Ot E11.22 07/27/2015 CORNELIUS, BOBAN N Ot G62.9 07/27/2015 CORNELIUS, BOBAN N Ot I48.91 07/27/2015 CORNELIUS, BOBAN N Ot N18.3 07/27/2015 CORNELIUS, BOBAN N Ot Z23 07/27/2015 CORNELIUS, BOBAN N Ot Z79.899 07/27/2015 CORNELIUS, BOBAN N Ot Z92.21 08/09/2015 CORNELIUS, BOBAN N Ot C81.10 08/09/2015 CORNELIUS, BOBAN N Ot E11.22 08/09/2015 CORNELIUS, BOBAN N Ot G62.9 08/09/2015 CORNELIUS, BOBAN N Ot I48.91 08/09/2015 CORNELIUS, BOBAN N Ot N18.3 08/09/2015 CORNELIUS, BOBAN N Ot Z23 08/09/2015 CORNELIUS, BOBAN N Ot Z79.899 08/09/2015 CORNELIUS, BOBAN N Ot Z92.21 08/16/2015 CRISTIANO FERRARI APRN Ot R06.02 08/16/2015 CRISTIANO FERRARI MENAGERIE CARETAKER Ot R91.8 08/18/2015 CRISTIANO FERRARI APRN Ot J43.9 08/18/2015 CRISTIANO FERRARI APRN Ot J90 08/24/2015 CRISTIANO FERRARI MENAGERIE CARETAKER Ot R06.02 08/24/2015 CRISTIANO FERRARI MENAGERIE CARETAKER Ot R91.8 08/24/2015 CRISTIANO FERRARI MENAGERIE CARETAKER Ot J43.9 08/24/2015 CRISTIANO FERRARI MENAGERIE CARETAKER Ot J90 09/21/2015 ELIZABETH SHIELDS N Ot 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 09/21/2015 ELIZABETH SHIELDS N Ot 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 09/21/2015 ELIZABETH SHIELDS N Ot G62.9 POLYNEUROPATHY, UNSPECIFIED 09/21/2015 ELIZABETH SHIELDS N Ot I48.91 UNSPECIFIED ATRIAL FIBRILLATION 09/21/2015 ELIZABETH SHIELDS N Ot N18.3 CHRONIC KIDNEY DISEASE, STAGE 3 (MODERAT 09/21/2015 ELIZABETH SHIELDS N Ot Z23 ENCOUNTER FOR IMMUNIZATION 09/21/2015 ELIZABETH SHIELDS N Ot Z79.899 OTHER FPC (CURRENT) DRUG THERAPY 09/21/2015 ELIZABETH SHIELDS N Ot Z92.21 PERSONAL HISTORY OF ANTINEOPLASTIC CHEMO 02/15/2016 CARMELO ADAME MD Ot I25.10 ATHSCL HEART DISEASE OF [place] CORONARY 02/15/2016 CARMELO ADAME MD Ot I50.9 HEART FAILURE, UNSPECIFIED 02/15/2016 CARMELO ADAME MD Ot M89.9 DISORDER OF BONE, UNSPECIFIED 03/23/2016 CARMELO ADAME MD Ot I25.10 ATHSCL HEART DISEASE OF [place] CORONARY 03/23/2016 CARMELO ADAME MD Ot I50.9 HEART FAILURE, UNSPECIFIED 03/23/2016 CARMELO ADAME MD Ot M89.9 DISORDER OF BONE, UNSPECIFIED 04/02/2016 CARMELO ADAME MD Ot I25.10 ATHSCL HEART DISEASE OF [place] CORONARY 04/02/2016 CARMELO ADAME MD Ot I50.9 HEART FAILURE, UNSPECIFIED 04/02/2016 CARMELO ADAME MD Ot M89.9 DISORDER OF BONE, UNSPECIFIED 04/02/2016 BERTA JONES Ot 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 04/02/2016 BERTA JONESP Ot 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 04/02/2016 JONES, HILAH S METER CALIBRATOR Ot G62.9 POLYNEUROPATHY, UNSPECIFIED 04/02/2016 JONES BERTA Arriaza METER CALIBRATOR Ot I48.91 UNSPECIFIED ATRIAL FIBRILLATION 04/02/2016 JONES BERTA Arriaza METER CALIBRATOR Ot N18.3 CHRONIC KIDNEY DISEASE, STAGE 3 ( MODERAT 04/02/2016 BERTA JONES Arsalan METER CALIBRATOR Ot Z79.899 OTHER FPC (CURRENT) DRUG THERAPY 04/02/2016 BERTA JONES METER CALIBRATOR Ot Z92.21 PERSONAL HISTORY OF ANTINEOPLASTIC CHEMO 04/20/2016 BERTA JONES METER CALIBRATOR Ot 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 04/20/2016 KAREN BERTA Arriaza METER CALIBRATOR Ot 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 04/20/2016 BERTA JONES METER CALIBRATOR Ot G62.9 POLYNEUROPATHY, UNSPECIFIED 04/20/2016 LAWANDA JONESMARQUEZ Arsalan METER CALIBRATOR Ot I48.91 UNSPECIFIED ATRIAL FIBRILLATION 04/20/2016 BERTA JONES METER CALIBRATOR Ot N18.3 CHRONIC KIDNEY DISEASE, STAGE 3 ( MODERAT 04/20/2016 LAWANDA JONESMARQUEZ Arriaza METER CALIBRATOR Ot Z79.899 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 04/20/2016 KAREN BERTA Arriaza METER CALIBRATOR Ot Z92.21 PERSONAL HISTORY OF ANTINEOPLASTIC CHEMO 04/25/2016 BERTA JONES METER CALIBRATOR Ot 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 04/25/2016 BERTA JONES Arsalan METER CALIBRATOR Ot 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 04/25/2016 BERTA JONES Arsalan METER CALIBRATOR Ot G62.9 POLYNEUROPATHY, UNSPECIFIED 04/25/2016 LAWANDA JONESMARQUEZ Arriaza METER CALIBRATOR Ot I48.91 UNSPECIFIED ATRIAL FIBRILLATION 04/25/2016 LAWANDA JONESMARQUEZ Arriaza METER CALIBRATOR Ot N18.3 CHRONIC KIDNEY DISEASE, STAGE 3 ( MODERAT 04/25/2016 LAWANDA JONESMARQUEZ Arriaza METER CALIBRATOR Ot Z79.899 OTHER FPC (CURRENT) DRUG THERAPY 04/25/2016 KAREN BERTA S METER CALIBRATOR Ot Z92.21 PERSONAL HISTORY OF ANTINEOPLASTIC CHEMO 06/25/2016 Ot 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, EXTRANODAL SOLID OR 06/25/2016 Ot 250.00 DIAB CHINEDU WO COMPL, TYPE II OR UNSPEC TY 06/25/2016 Ot 274.9 GOUT NOS 06/25/2016 DEVANG MONSON MD Ot 924.01 CONTUSION OF HIP 06/25/2016 DEVANG MONSON MD Ot E000.8 OTHER EXTERNAL CAUSE STATUS 06/25/2016 DEVANG MONSON MD Ot E819.9 TRAFFIC ACC NOS-PERS NOS 06/25/2016 DEVANG MONSON MD Ot 496 CHR AIRWAY OBSTRUCT NEC 06/25/2016 DEVANG MONSON MD Ot 786.05 SHORTNESS OF BREATH 06/25/2016 DEVANG MONSON MD Ot 492.8 EMPHYSEMA NEC 06/25/2016 DEVANG MONSON MD Ot 786.05 SHORTNESS OF BREATH 06/25/2016 ELIZABETH SHIELDS Ot V58.61 ANTICOAGULANTS,LT,CURRENT USE 06/25/2016 ELIZABETH SHIELDS Ot V58.83 ENCOUNTER FOR THERAPEUTIC DRUG MONITORIN 06/25/2016 CARMELO ADAME MD Ot 414.00 CORON ATHEROSCLER NOS TYPE VESSEL, NATIV 06/25/2016 CARMELO ADAME MD Ot 425.4 PRIM CARDIOMYOPATHY NEC 06/25/2016 CARMELO ADAME MD Ot 427.31 ATRIAL FIBRILLATION 06/25/2016 CARMELO ADAME MD Ot 429.3 CARDIOMEGALY 06/25/2016 CARMELO ADAME MD Ot 496 CHR AIRWAY OBSTRUCT NEC 06/25/2016 DEVANG MONSON MD Ot 786.30 HEMOPTYSIS, UNSPECIFIED 06/25/2016 CARMELO ADAME MD Ot 272.4 HYPERLIPIDEMIA NEC/NOS 06/25/2016 CARMELO ADAME MD Ot 414.00 CORON ATHEROSCLER NOS TYPE VESSEL, NATIV 06/25/2016 CARMELO ADAME MD Ot 425.4 PRIM CARDIOMYOPATHY NEC 06/25/2016 CARMELO ADAME MD Ot 427.31 ATRIAL FIBRILLATION 06/25/2016 CARMELO ADAME MD Ot 428.0 CONGESTIVE HEART FAILURE NOS 06/25/2016 CARMELO ADAME MD Ot 433.10 CAROTID ARTERY OCCLUSION W O CEREBRAL IN 06/25/2016 CARMELO ADAME MD Ot 496 CHR AIRWAY OBSTRUCT NEC 06/25/2016 CARMELO ADAME MD Ot 793.19 OTHER NONSPECIFIC ABNORMAL FINDING OF [place] 06/25/2016 CASPER DELVALLE MD Ot V72.84 EXAM PRE-OPERATIVE NOS 06/25/2016 KIDO MD, TAKAAKI Ot V72.84 EXAM PRE-OPERATIVE NOS 06/25/2016 BERTA JONES METER CALIBRATOR Ot 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, EXTRANODAL SOLID OR 06/25/2016 BERTA JONES METER CALIBRATOR Ot 356.9 IDIO PERIPH NEURPTHY NOS 06/25/2016 BERTA JONES METER CALIBRATOR Ot 427.31 ATRIAL FIBRILLATION 06/25/2016 BERTA JONES METER CALIBRATOR Ot 585.3 CHRONIC KIDNEY DISEASE, STAGE III ( MODER 06/25/2016 BERTA JONES METER CALIBRATOR Ot V58.61 ANTICOAGULANTS,LT,CURRENT USE 06/25/2016 BERTA JONESP Ot V58.69 OTH MED,LT,CURRENT USE 06/25/2016 BERTA JONES METER CALIBRATOR Ot V87.41 PERSONAL HISTORY OF ANTINEOPLASTIC CHEMO 06/25/2016 CRISTIANO FERRARI MENAGERIE CARETAKER Ot R06.02 SHORTNESS OF BREATH 06/25/2016 CRISTIANO FERRARI MENAGERIE CARETAKER Ot R91.8 OTHER NONSPECIFIC ABNORMAL FINDING OF [place] 06/25/2016 CRISTIANO FERRARI MENAGERIE CARETAKER Ot R06.02 SHORTNESS OF BREATH 06/25/2016 CRISTIANO FERRARI MENAGERIE CARETAKER Ot J43.9 EMPHYSEMA, UNSPECIFIED 06/25/2016 CRISTIANO FERRARI MENAGERIE CARETAKER Ot J90 PLEURAL EFFUSION, NOT ELSEWHERE CLASSIFI 06/25/2016 ELIZABETH SHIELDS Ot 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 06/25/2016 ELIZABETH SHIELDS Ot 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 06/25/2016 ELIZABETH SHIELDS Ot G62.9 POLYNEUROPATHY, UNSPECIFIED 06/25/2016 ELIZABETH SHIELDS Ot I48.91 UNSPECIFIED ATRIAL FIBRILLATION 06/25/2016 ELIZABETH SHIELDS Ot N18.3 CHRONIC KIDNEY DISEASE, STAGE 3 (MODERAT 06/25/2016 ELIZABETH SHIELDS Ot Z23 ENCOUNTER FOR IMMUNIZATION 06/25/2016 ELIZABETH SHIELDS Ot Z79.899 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 06/25/2016 ELIZABETH SHIELDS Ot Z92.21 PERSONAL HISTORY OF ANTINEOPLASTIC CHEMO 06/25/2016 BERTA JONES METER CALIBRATOR Ot 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 06/25/2016 BERTA JONES METER CALIBRATOR Ot 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 06/25/2016 BERTA JONES METER CALIBRATOR Ot G62.9 POLYNEUROPATHY, UNSPECIFIED 06/25/2016 BERTA JONES METER CALIBRATOR Ot I48.91 UNSPECIFIED ATRIAL FIBRILLATION 06/25/2016 BERTA JONES METER CALIBRATOR Ot N18.3 CHRONIC KIDNEY DISEASE, STAGE 3 ( MODERAT 06/25/2016 BERTA JONES METER CALIBRATOR Ot Z79.899 OTHER FPC (CURRENT) DRUG THERAPY 06/25/2016 BERTA JONES METER CALIBRATOR Ot Z92.21 PERSONAL HISTORY OF ANTINEOPLASTIC CHEMO 06/25/2016 DEEP SWEENEY, CARMELO Lucero Ot I25.10 ATHSCL HEART DISEASE OF [place] CORONARY 06/25/2016 CARMELO ADAME MD Ot I50.9 HEART FAILURE, UNSPECIFIED 06/25/2016 CARMELO ADAME MD Ot M89.9 DISORDER OF BONE, UNSPECIFIED 06/25/2016 KELLY BEDOLLA MD Ot Z11.1 ENCOUNTER FOR SCREENING FOR RESPIRATORY 07/18/2016 KELLY BEDOLLA MD Ot Z11.1 ENCOUNTER FOR SCREENING FOR RESPIRATORY 07/25/2016 KELLY BEDOLLA MD Ot Z11.1 ENCOUNTER FOR SCREENING FOR RESPIRATORY 08/13/2016 Ot 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, EXTRANODAL SOLID OR 08/13/2016 Ot 250.00 DIAB CHINEDU WO COMPL, TYPE II OR UNSPEC TY 08/13/2016 Ot 274.9 GOUT NOS 08/13/2016 DEVANG MONSON MD Ot 924.01 CONTUSION OF HIP 08/13/2016 DEVANG MONSON MD Ot E000.8 OTHER EXTERNAL CAUSE STATUS 08/13/2016 DEVANG MONSON MD Ot E819.9 TRAFFIC ACC NOS-PERS NOS 08/13/2016 DEVANG MONSON MD Ot 496 CHR AIRWAY OBSTRUCT NEC 08/13/2016 DEVANG MONSON MD Ot 786.05 SHORTNESS OF BREATH 08/13/2016 DEVANG MONSON MD Ot 492.8 EMPHYSEMA NEC 08/13/2016 DEAVNG MONSON MD Ot 786.05 SHORTNESS OF BREATH 08/13/2016 ELIZABETH SHIELDS Ot V58.61 ANTICOAGULANTS,LT,CURRENT USE 08/13/2016 ELIZABETH SHIELDS Ot V58.83 ENCOUNTER FOR THERAPEUTIC DRUG MONITORIN 08/13/2016 CARMELO ADAME MD Ot 414.00 CORON ATHEROSCLER NOS TYPE VESSEL, NATIV 08/13/2016 CARMELO ADAME MD Ot 425.4 PRIM CARDIOMYOPATHY NEC 08/13/2016 CARMELO ADAME MD Ot 427.31 ATRIAL FIBRILLATION 08/13/2016 CARMELO ADAME MD Ot 429.3 CARDIOMEGALY 08/13/2016 CARMELO ADAME MD Ot 496 CHR AIRWAY OBSTRUCT NEC 08/13/2016 IONA SWEENEY, DEVANG Herrmann Ot 786.30 HEMOPTYSIS, UNSPECIFIED 08/13/2016 CARMELO ADAME MD Ot 272.4 HYPERLIPIDEMIA NEC/NOS 08/13/2016 CARMELO ADAME MD Ot 414.00 CORON ATHEROSCLER NOS TYPE VESSEL, NATIV 08/13/2016 CARMELO ADAME MD Ot 425.4 PRIM CARDIOMYOPATHY NEC 08/13/2016 CARMELO ADAME MD Ot 427.31 ATRIAL FIBRILLATION 08/13/2016 CARMELO ADAME MD Ot 428.0 CONGESTIVE HEART FAILURE NOS 08/13/2016 CARMELO ADAME MD Ot 433.10 CAROTID ARTERY OCCLUSION W O CEREBRAL IN 08/13/2016 CARMELO ADAME MD Ot 496 CHR AIRWAY OBSTRUCT NEC 08/13/2016 CARMELO ADAME MD Ot 793.19 OTHER NONSPECIFIC ABNORMAL FINDING OF [place] 08/13/2016 MOOK SWEENEY, CASPER Mcmullen Ot V72.84 EXAM PRE-OPERATIVE NOS 08/13/2016 MARY SWEENEY, TANO Ot V72.84 EXAM PRE-OPERATIVE NOS 08/13/2016 BERTA JONES METER CALIBRATOR Ot 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, EXTRANODAL SOLID OR 08/13/2016 BERTA JONES METER CALIBRATOR Ot 356.9 IDIO PERIPH NEURPTHY NOS 08/13/2016 BERTA JONES METER CALIBRATOR Ot 427.31 ATRIAL FIBRILLATION 08/13/2016 BERTA JONSE METER CALIBRATOR Ot 585.3 CHRONIC KIDNEY DISEASE, STAGE III ( MODER 08/13/2016 BERTA JONES METER CALIBRATOR Ot V58.61 ANTICOAGULANTS,LT,CURRENT USE 08/13/2016 BERTA JONES METER CALIBRATOR Ot V58.69 OTH MED,LT,CURRENT USE 08/13/2016 BERTA JONES S METER CALIBRATOR Ot V87.41 PERSONAL HISTORY OF ANTINEOPLASTIC CHEMO 08/13/2016 VEGA, CRISTIANO M MENAGERIE CARETAKER Ot R06.02 SHORTNESS OF BREATH 08/13/2016 CRISTIANO FERRARI MENAGERIE CARETAKER Ot R91.8 OTHER NONSPECIFIC ABNORMAL FINDING OF [place] 08/13/2016 CRISTIANO FERRARI MENAGERIE CARETAKER Ot R06.02 SHORTNESS OF BREATH 08/13/2016 CRISTIANO FERRARI MENAGERIE CARETAKER Ot J43.9 EMPHYSEMA, UNSPECIFIED 08/13/2016 CRISTIANO FERRARI MENAGERIE CARETAKER Ot J90 PLEURAL EFFUSION, NOT ELSEWHERE CLASSIFI 08/13/2016 CORNELIUS, ELIZABETH N Ot 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 08/13/2016 CORNELIUS BOBAN N Ot 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 08/13/2016 CORNLEIUS BOBAN N Ot G62.9 POLYNEUROPATHY, UNSPECIFIED 08/13/2016 CORNELIUS BOBAN N Ot I48.91 UNSPECIFIED ATRIAL FIBRILLATION 08/13/2016 CORNELIUS BOBAN N Ot N18.3 CHRONIC KIDNEY DISEASE, STAGE 3 (MODERAT 08/13/2016 CORNELIUSELIZABETH OHARA N Ot Z23 ENCOUNTER FOR IMMUNIZATION 08/13/2016 CORNELIUS BOBMILLER N Ot Z79.899 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 08/13/2016 CORNELIUS BOBAN N Ot Z92.21 PERSONAL HISTORY OF ANTINEOPLASTIC CHEMO 08/13/2016 BERTA JONES METER CALIBRATOR Ot 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 08/13/2016 BERTA JONES METER CALIBRATOR Ot 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 08/13/2016 BERTA JONES METER CALIBRATOR Ot G62.9 POLYNEUROPATHY, UNSPECIFIED 08/13/2016 BERTA JONES METER CALIBRATOR Ot I48.91 UNSPECIFIED ATRIAL FIBRILLATION 08/13/2016 BERTA JONES METER CALIBRATOR Ot N18.3 CHRONIC KIDNEY DISEASE, STAGE 3 ( MODERAT 08/13/2016 BERTA JONES METER CALIBRATOR Ot Z79.899 OTHER FPC (CURRENT) DRUG THERAPY 08/13/2016 BERTA JONES METER CALIBRATOR Ot Z92.21 PERSONAL HISTORY OF ANTINEOPLASTIC CHEMO 08/13/2016 DEEP SWEENEY, CARMELO Lucero Ot I25.10 ATHSCL HEART DISEASE OF [place] CORONARY 08/13/2016 CARMELO ADAME MD Ot I50.9 HEART FAILURE, UNSPECIFIED 08/13/2016 CARMELO ADAME MD Ot M89.9 DISORDER OF BONE, UNSPECIFIED 08/13/2016 CHIOMA SWEENEY, KELLY Sylvester Ot Z11.1 ENCOUNTER FOR SCREENING FOR RESPIRATORY 08/31/2016 CRISTIANO FERRARI MENAGERIE CARETAKER Ot M79.645 PAIN IN LEFT FINGER(S) 09/06/2016 CRISTIANO FERRARI MENAGERIE CARETAKER Ot M79.645 PAIN IN LEFT FINGER(S) 09/06/2016 KAHLIL CHERY METER CALIBRATOR Ot M25.512 PAIN IN LEFT SHOULDER 09/26/2016 ELIZABETH SHIELDS N Ot 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 09/26/2016 CORNELIUS, BOBAN N Ot 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 09/26/2016 CORNELIUS BOBAN N Ot G62.9 POLYNEUROPATHY, UNSPECIFIED 09/26/2016 CORNELIUS BOBAN N Ot I48.91 UNSPECIFIED ATRIAL FIBRILLATION 09/26/2016 CORNELIUS BOBAN N Ot N18.3 CHRONIC KIDNEY DISEASE, STAGE 3 (MODERAT 09/26/2016 CORNELIUS BOBAN N Ot Z23 ENCOUNTER FOR IMMUNIZATION 09/26/2016 CORNELIUS BOBAN N Ot Z79.899 OTHER FPC (CURRENT) DRUG THERAPY 09/26/2016 CORNELIUS, BOBAN N Ot Z92.21 PERSONAL HISTORY OF ANTINEOPLASTIC CHEMO 09/26/2016 KAHLIL CHERY METER CALIBRATOR Ot M25.512 PAIN IN LEFT SHOULDER 09/26/2016 KAHLIL CHERY METER CALIBRATOR Ot M25.512 PAIN IN LEFT SHOULDER 09/27/2016 CHIOMA SWEENEY, KELLY Sylvester Ot R06.02 SHORTNESS OF BREATH 10/01/2016 ELIZABETH SHIELDS N Ot 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, UNSP 10/01/2016 CORNELIUS BOBAN N Ot 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 10/01/2016 CORNELIUS BOBAN N Ot G62.9 POLYNEUROPATHY, UNSPECIFIED 10/01/2016 CORNELIUS BOBAN N Ot I48.91 UNSPECIFIED ATRIAL FIBRILLATION 10/01/2016 CORNELIUS BOBAN N Ot N18.3 CHRONIC KIDNEY DISEASE, STAGE 3 (MODERAT 10/01/2016 CORNELISU BOBAN N Ot Z23 ENCOUNTER FOR IMMUNIZATION 10/01/2016 CORNELIUS BOBAN N Ot Z79.899 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 10/01/2016 ELIZABETH SHIELDS Pradip Ot Z92.21 PERSONAL HISTORY OF ANTINEOPLASTIC CHEMO 10/04/2016 AKHLIL CHERY Ot M25.512 PAIN IN LEFT SHOULDER 10/04/2016 KAHLIL CHERY Ot M25.512 PAIN IN LEFT SHOULDER 10/05/2016 KALANI MCKINNON MD, Ot G37.3 ACUTE TRANSVERSE MYELITIS IN DEMYELINATI 10/05/2016 KALANI MCKINNON MD, Ot G62.9 POLYNEUROPATHY, UNSPECIFIED 10/05/2016 KALANI MCKINNON MD, Ot I10 ESSENTIAL (PRIMARY) HYPERTENSION 10/05/2016 KALANI MCKINNON MD, Ot I25.10 ATHSCL HEART DISEASE OF [place] CORONARY 10/05/2016 KALANI MCKINNON MD, Ot M47.812 SPONDYLOSIS W/O MYELOPATHY OR RADICULOPA 10/05/2016 KALANI MCKINNON MD, Ot 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/O MYELOPATHY OR RADICULOPATHY 10/05/2016 KALANI MCKINNON MD, Ot M85.89 OT DISRD OF BONE DENSITY AND STRUCTURE, 10/05/2016 KALANI MCKINNON MD, Ot R29.6 REPEATED FALLS 10/05/2016 KALANI MCKINNON MD, Ot S00.03XA CONTUSION OF SCALP, INITIAL ENCOUNTER 10/05/2016 KALANI MCKINNON MD, Ot S09.90XA UNSPECIFIED INJURY OF HEAD, INITIAL ENCO 10/05/2016 KALANI MCKINNON MD, Ot S70.02XA CONTUSION OF LEFT HIP, INITIAL ENCOUNTER 10/05/2016 KALANI MCKINNON MD, Ot W01.0XXA FALL SAME LEV FROM SLIP/TRIP W/O STRIKE 10/05/2016 KALANI MCKINNON MD Ot Y92.[address] IN HALF-WAY PLACE 10/05/2016 KALANI MCKINNON MD, Ot Y99.8 OTHER EXTERNAL CAUSE STATUS 10/05/2016 KALANI MCKINNON MD, Ot Z79.01 FPC (CURRENT) USE OF ANTICOAGULANT 10/05/2016 KALANI MCKINNON MD, Ot Z79.4 FPC (CURRENT) USE OF INSULIN 10/05/2016 KALANI MCKINNON MD, Ot Z79.899 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 10/05/2016 KALANI MCKINNON MD, Ot Z95.1 PRESENCE OF AORTOCORONARY BYPASS GRAFT 10/05/2016 KALANI MCKINNON MD, Ot Z95.828 PRESENCE OF OTHER VASCULAR IMPLANTS AND 10/05/2016 KALANI MCKNINON MD, Ot G37.3 ACUTE TRANSVERSE MYELITIS IN DEMYELINATI 10/05/2016 KALANI MCKINNON MD, Ot G62.9 POLYNEUROPATHY, UNSPECIFIED 10/05/2016 KALANI MCKINNON MD, Ot I10 ESSENTIAL (PRIMARY) HYPERTENSION 10/05/2016 KALANI MCKINNON MD, Ot I25.10 ATHSCL HEART DISEASE OF [place] CORONARY 10/05/2016 KALANI MCKINNON MD, Ot M47.812 SPONDYLOSIS W/O MYELOPATHY OR RADICULOPA 10/05/2016 KALANI MCKINNON MD, Ot 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/O MYELOPATHY OR RADICULOPATHY 10/05/2016 KALANI MCKINNON MD, Ot M85.89 OT DISRD OF BONE DENSITY AND STRUCTURE, 10/05/2016 KALANI MCKINNON MD, Ot R29.6 REPEATED FALLS 10/05/2016 KALANI MCKINNON MD, Ot S00.03XA CONTUSION OF SCALP, INITIAL ENCOUNTER 10/05/2016 KALANI MCKINNON MD, Ot S09.90XA UNSPECIFIED INJURY OF HEAD, INITIAL ENCO 10/05/2016 KALANI MCKINNON MD, Ot S70.02XA CONTUSION OF LEFT HIP, INITIAL ENCOUNTER 10/05/2016 KALANI MCKINNON MD, Ot W01.0XXA FALL SAME LEV FROM SLIP/TRIP W/O STRIKE 10/05/2016 KALANI MCKINNON MD, Ot Y92.[address] IN HALF-WAY PLACE 10/05/2016 KALANI MCKINNON MD, Ot Y99.8 OTHER EXTERNAL CAUSE STATUS 10/05/2016 KALANI MCKINNON MD, Ot Z79.01 FPC (CURRENT) USE OF ANTICOAGULANT 10/05/2016 KALANI MCKINNON MD, Ot Z79.4 OUTSIDE MACHINIST HELPER (CURRENT) USE OF INSULIN 10/05/2016 KALANI MCKINNON MD, Ot Z79.899 OTHER FPC (CURRENT) DRUG THERAPY 10/05/2016 KALANI MCKINNON MD, Ot Z95.1 PRESENCE OF AORTOCORONARY BYPASS GRAFT 10/05/2016 KALANI MCKINNON MD, Ot Z95.828 PRESENCE OF OTHER VASCULAR IMPLANTS AND 10/09/2016 CRISTIANO FERRARI APRN Ot M25.512 PAIN IN LEFT SHOULDER 10/10/2016 KALANI MCKINNON MD, Ot G37.3 ACUTE TRANSVERSE MYELITIS IN DEMYELINATI 10/10/2016 KALANI MCKINNON MD, Ot G62.9 POLYNEUROPATHY, UNSPECIFIED 10/10/2016 KALANI MCKINNON MD, Ot I10 ESSENTIAL (PRIMARY) HYPERTENSION 10/10/2016 KALANI MCKINNON MD, Ot I25.10 ATHSCL HEART DISEASE OF [place] CORONARY 10/10/2016 KALANI MCKINNON MD, Ot M47.812 SPONDYLOSIS W/O MYELOPATHY OR RADICULOPA 10/10/2016 KALANI MCKINNON MD, Ot 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/O MYELOPATHY OR RADICULOPATHY 10/10/2016 KALANI MCKINNON MD, Ot M85.89 OT DISRD OF BONE DENSITY AND STRUCTURE, 10/10/2016 KALANI MCKINNON MD, Ot R29.6 REPEATED FALLS 10/10/2016 KALANI MCKINNON MD, Ot S00.03XA CONTUSION OF SCALP, INITIAL ENCOUNTER 10/10/2016 KALANI MCKINNON MD, Ot S09.90XA UNSPECIFIED INJURY OF HEAD, INITIAL ENCO 10/10/2016 KALANI MCKINNON MD, Ot S70.02XA CONTUSION OF LEFT HIP, INITIAL ENCOUNTER 10/10/2016 KALANI MCKINNON MD, Ot W01.0XXA FALL SAME LEV FROM SLIP/TRIP W/O STRIKE 10/10/2016 KALANI MCKINNON MD Ot Y92.[address] IN HALF-WAY PLACE 10/10/2016 KALANI MCKINNON MD Ot Y99.8 OTHER EXTERNAL CAUSE STATUS 10/10/2016 KALANI MCKINNON MD, Ot Z79.01 OUTSIDE MACHINIST HELPER (CURRENT) USE OF ANTICOAGULANT 10/10/2016 KALANI MCKINNON MD Ot Z79.4 OUTSIDE MACHINIST HELPER (CURRENT) USE OF INSULIN 10/10/2016 KALANI MCKINNON MD, Ot Z79.899 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 10/10/2016 KALANI MCKINNON MD, Ot Z95.1 PRESENCE OF AORTOCORONARY BYPASS GRAFT 10/10/2016 KALANI MCKINNON MD Ot Z95.828 PRESENCE OF OTHER VASCULAR IMPLANTS AND 10/19/2016 KELLY BEDOLLA MD Ot R06.02 SHORTNESS OF BREATH 10/24/2016 KELLY BEDOLLA MD Ot R06.02 SHORTNESS OF BREATH 10/30/2016 Ot 250.00 DIAB CHINEDU WO COMPL, TYPE II OR UNSPEC TY 10/30/2016 Ot 274.9 GOUT NOS 10/30/2016 DEVANG MONSON MD Ot 924.01 CONTUSION OF HIP 10/30/2016 DEVANG MONSON MD Ot E000.8 OTHER EXTERNAL CAUSE STATUS 10/30/2016 DEVANG MONSON MD Ot E819.9 TRAFFIC ACC NOS-PERS NOS 10/30/2016 DEAVNG MONSON MD Ot 496 CHR AIRWAY OBSTRUCT NEC 10/30/2016 DEVANG MONSON MD Ot 786.05 SHORTNESS OF BREATH 10/30/2016 DEVANG MONSON MD Ot 492.8 EMPHYSEMA NEC 10/30/2016 DEVANG MONSON MD Ot 786.05 SHORTNESS OF BREATH 10/30/2016 ELIZABETH SHIELDS Ot V58.61 ANTICOAGULANTS,LT,CURRENT USE 10/30/2016 ELIZABETH SHIELDS Ot V58.83 ENCOUNTER FOR THERAPEUTIC DRUG MONITORIN 10/30/2016 CARMELO ADAME MD Ot 414.00 CORON ATHEROSCLER NOS TYPE VESSEL, NATIV 10/30/2016 CARMELO ADAME MD Ot 425.4 PRIM CARDIOMYOPATHY NEC 10/30/2016 CARMELO ADAME MD Ot 427.31 ATRIAL FIBRILLATION 10/30/2016 CARMELO ADAME MD Ot 429.3 CARDIOMEGALY 10/30/2016 CARMELO ADAME MD Ot 496 CHR AIRWAY OBSTRUCT NEC 10/30/2016 IONA SWEENEY, DEVANG Herrmann Ot 786.30 HEMOPTYSIS, UNSPECIFIED 10/30/2016 CARMELO ADAME MD Ot 272.4 HYPERLIPIDEMIA NEC/NOS 10/30/2016 CARMELO ADAME MD Ot 414.00 CORON ATHEROSCLER NOS TYPE VESSEL, NATIV 10/30/2016 CARMELO ADAME MD Ot 425.4 PRIM CARDIOMYOPATHY NEC 10/30/2016 CARMELO ADAME MD Ot 427.31 ATRIAL FIBRILLATION 10/30/2016 CARMELO ADAME MD Ot 428.0 CONGESTIVE HEART FAILURE NOS 10/30/2016 CARMELO ADAME MD Ot 433.10 CAROTID ARTERY OCCLUSION W O CEREBRAL IN 10/30/2016 CARMELO ADAME MD Ot 496 CHR AIRWAY OBSTRUCT NEC 10/30/2016 CARMELO ADAME MD Ot 793.19 OTHER NONSPECIFIC ABNORMAL FINDING OF [place] 10/30/2016 MOOK SWEENEY, CASPER Mcmullen Ot V72.84 EXAM PRE-OPERATIVE NOS 10/30/2016 MARY SWEENEY, TANO Ot V72.84 EXAM PRE-OPERATIVE NOS 10/30/2016 BERTA JONES METER CALIBRATOR Ot 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, EXTRANODAL SOLID OR 10/30/2016 BERTA JONES METER CALIBRATOR Ot 356.9 IDIO PERIPH NEURPTHY NOS 10/30/2016 BERTA JONES METER CALIBRATOR Ot 427.31 ATRIAL FIBRILLATION 10/30/2016 BERTA JONES METER CALIBRATOR Ot 585.3 CHRONIC KIDNEY DISEASE, STAGE III ( MODER 10/30/2016 BERTA JONES METER CALIBRATOR Ot V58.61 ANTICOAGULANTS,LT,CURRENT USE 10/30/2016 BERTA JONES METER CALIBRATOR Ot V58.69 OTH MED,LT,CURRENT USE 10/30/2016 BERTA JONES METER CALIBRATOR Ot V87.41 PERSONAL HISTORY OF ANTINEOPLASTIC CHEMO 10/30/2016 CRISTIANO FERRARI MENAGERIE CARETAKER Ot R06.02 SHORTNESS OF BREATH 10/30/2016 CRISTIANO FERRARI MENAGERIE CARETAKER Ot R91.8 OTHER NONSPECIFIC ABNORMAL FINDING OF [place] 10/30/2016 CRISTIANO FERRARI MENAGERIE CARETAKER Ot R06.02 SHORTNESS OF BREATH 10/30/2016 CRISTIANO FERRARI MENAGERIE CARETAKER Ot J43.9 EMPHYSEMA, UNSPECIFIED 10/30/2016 CRISTIANO FERRARI MENAGERIE CARETAKER Ot J90 PLEURAL EFFUSION, NOT ELSEWHERE CLASSIFI 10/30/2016 ELIZABETH SHIELDS Pradip Ot 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, UNSP 10/30/2016 ELIZABETH SHIELDS N Ot 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 10/30/2016 ELIZABETH SHIELDS N Ot G62.9 POLYNEUROPATHY, UNSPECIFIED 10/30/2016 ELIZABETH SHIELDS N Ot I48.91 UNSPECIFIED ATRIAL FIBRILLATION 10/30/2016 ELIZABETH SHIELDS N Ot N18.3 CHRONIC KIDNEY DISEASE, STAGE 3 (MODERAT 10/30/2016 ELIZABETH SHIELDS N Ot Z23 ENCOUNTER FOR IMMUNIZATION 10/30/2016 ELIZABETH SHIELDS N Ot Z79.899 OTHER FPC (CURRENT) DRUG THERAPY 10/30/2016 ELIZABETH SHIELDS N Ot Z92.21 PERSONAL HISTORY OF ANTINEOPLASTIC CHEMO 10/30/2016 BERTA JONES METER CALIBRATOR Ot 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10 ATHSCL HEART DISEASE OF [place] CORONARY 10/30/2016 DEEP SWEENEY, CARMELO Lucero Ot I50.9 HEART FAILURE, UNSPECIFIED 10/30/2016 CARMELO ADAME MD Ot M89.9 DISORDER OF BONE, UNSPECIFIED 10/30/2016 CHIOMA SWEENEY, KELLY Sylvester Ot Z11.1 ENCOUNTER FOR SCREENING FOR RESPIRATORY 10/30/2016 CRISTIANO FERRARI APRN Ot M79.645 PAIN IN LEFT FINGER(S) 10/30/2016 KAHLLI CHERY METER CALIBRATOR Ot M25.512 PAIN IN LEFT SHOULDER 10/30/2016 KAHLIL CHERY METER CALIBRATOR Ot M25.512 PAIN IN LEFT SHOULDER 10/30/2016 KELLY BEDOLLA MD Ot R06.02 SHORTNESS OF BREATH 10/30/2016 CRISTIANO FERRARI MENAGERIE CARETAKER Ot M25.512 PAIN IN LEFT SHOULDER 11/01/2016 CRISTIANO FERRARI MENAGERIE CARETAKER Ot M25.512 PAIN IN LEFT SHOULDER 11/05/2016 KELLY BEDOLLA MD Ot 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, UNSPECIFIED, UNSPE 11/05/2016 KELLY BEDOLLA MD Ot E11.42 TYPE 2 DIABETES MELLITUS WITH DIABETIC P 11/05/2016 KELLY BEDOLLA MD Ot E78.00 PURE HYPERCHOLESTEROLEMIA, UNSPECIFIED 11/05/2016 KELLY BEDOLLA MD Ot E87.70 FLUID OVERLOAD, UNSPECIFIED 11/05/2016 KELLY BEDOLLA MD Ot G37.3 ACUTE TRANSVERSE MYELITIS IN [place]YELINATI 11/05/2016 KELLY BEDOLLA MD Ot G47.30 SLEEP APNEA, UNSPECIFIED 11/05/2016 KELLY BEDOLLA MD Ot H91.90 UNSPECIFIED HEARING LOSS, UNSPECIFIED EA 11/05/2016 KELLY BEDOLLA MD Ot I10 ESSENTIAL (PRIMARY) HYPERTENSION 11/05/2016 KELLY BEDOLLA MD, Ot I11.0 HYPERTENSIVE HEART DISEASE WITH HEART FA 11/05/2016 KELLY EBDOLLA MD Ot I25.10 ATHSCL HEART DISEASE OF [place] CORONARY 11/05/2016 KELLY BEDOLLA MD Ot I48.91 UNSPECIFIED ATRIAL FIBRILLATION 11/05/2016 KELLY BEDOLLA MD, Ot I50.9 HEART FAILURE, UNSPECIFIED 11/05/2016 KELLY BEDOLLA MD Ot J18.9 PNEUMONIA, UNSPECIFIED ORGANISM 11/05/2016 KELLY BEDOLLA MD, Ot J44.0 CHRONIC OBSTRUCTIVE PULMON DISEASE W ACU 11/05/2016 KELLY BEDOLLA MD, Ot K21.9 GASTRO-ESOPHAGEAL REFLUX DISEASE WITHOUT 11/05/2016 KELLY BEDOLLA MD Ot M10.9 GOUT, UNSPECIFIED 11/05/2016 KELLY BEDOLLA MD Ot M19.91 PRIMARY OSTEOARTHRITIS, UNSPECIFIED SITE 11/05/2016 KELLY BEDOLLA MD Ot R09.02 HYPOXEMIA 11/05/2016 KELLY BEDOLLA MD Ot Z66 DO NOT RESUSCITATE 11/05/2016 KELLY BEDOLLA MD Ot Z79.01 FPC (CURRENT) USE OF ANTICOAGULANT 11/05/2016 KELLY BEDOLLA MD Ot Z79.4 FPC (CURRENT) USE OF INSULIN 11/05/2016 KELLY BEDOLLA MD Ot Z87.828 PERSONAL HISTORY OF OTH (HEALED) PHYSICA 11/05/2016 KELLY BEDOLLA MD Ot Z87.891 PERSONAL HISTORY OF NICOTINE DEPENDENCE 11/05/2016 KELLY BEDOLLA MD Ot Z95.5 PRESENCE OF CORONARY ANGIOPLASTY IMPLANT 11/06/2016 CRISTIANO FERRARI APRN Ot M25.512 PAIN IN LEFT SHOULDER Procedures Results Test Result Range Complete blood count (CBC) with automated white blood cell (WBC) differential - 10/04/16 21:28 Blood leukocytes automated count (number/volume) 9.4 10*3/ uL 4.3-11.0 Blood erythrocytes automated count (number/volume) 3.40 10*6 /uL 4.35-5.85 Venous blood hemoglobin measurement (mass/volume) 11.0 g/dL 13.3-17.7 Blood hematocrit (volume fraction) 34 % 40-54 Automated erythrocyte mean corpuscular volume 99 [foz_us] 80-99 Automated erythrocyte mean corpuscular hemoglobin (mass per erythrocyte) 32 pg 25-34 Automated erythrocyte mean corpuscular hemoglobin concentration measurement ( mass/volume) 33 g/dL 32-36 Automated erythrocyte distribution width ratio 14.9 % 10.0-14.5 Automated blood platelet count (count/volume) 197 10*3/uL 130-400 Automated blood platelet mean volume measurement 10.5 [foz_ us] 7.4-10.4 Automated blood neutrophils/100 leukocytes 58 % 42-75 Automated blood lymphocytes/100 leukocytes 22 % 12-44 Blood monocytes/100 leukocytes 14 % 0-12 Automated blood eosinophils/100 leukocytes 6 % 0-10 Automated blood basophils/100 leukocytes 1 % 0-10 Blood neutrophils automated count (number/volume) 5.4 10*3 1.8-7.8 Blood lymphocytes automated count (number/volume) 2.1 10*3 1.0-4.0 Blood monocytes automated count (number/volume) 1.4 10*3 0.0-1.0 Automated eosinophil count 0.5 10*3/uL 0.0-0.3 Automated blood basophil count (count/volume) 0.1 10*3/uL 0.0-0.1 PT panel in platelet poor plasma by coagulation assay - 10/04/16 21:28 Prothrombin time (PT) in platelet poor plasma by coagulation assay 29.3 s 12.2-14.7 INR in platelet poor plasma or blood by coagulation assay 2.8 0.8-1.4 Activated partial thromboplastin time (aPTT) in platelet poor plasma bycoagulation assay - 10/04/16 21:28 Activated partial thromboplastin time (aPTT) in platelet poor plasma bycoagulation assay 48 s 24-35 Comprehensive metabolic panel - 10/04/16 21:28 Serum or plasma sodium measurement (moles/volume) 137 mmol/ L 135-145 Serum or plasma potassium measurement (moles/volume) 4.5 mmol/L 3.6-5.0 Serum or plasma chloride measurement (moles/volume) 103 mmol /L 98-107 Carbon dioxide 21 mmol/L 21-32 Serum or plasma anion gap determination (moles/volume) 13 mmol/L 5-14 Serum or plasma urea nitrogen measurement (mass/volume) 24 mg/dL 7-18 Serum or plasma creatinine measurement (mass/volume) 1.12 mg /dL 0.60-1.30 Serum or plasma urea nitrogen/creatinine mass ratio 21 NRG Serum or plasma creatinine measurement with calculation of estimated glomerular filtration rate > NRG Serum or plasma glucose measurement (mass/volume) 141 mg/dL 70-105 Serum or plasma calcium measurement (mass/volume) 8.6 mg/dL 8.5-10.1 Serum or plasma total bilirubin measurement (mass/volume) 1.3 mg/dL 0.1-1.0 Serum or plasma alkaline phosphatase measurement (enzymatic activity/volume) 95 U/L 40-136 Serum or plasma aspartate aminotransferase measurement (enzymatic activity/ volume) 21 U/L 5-34 Serum or plasma alanine aminotransferase measurement (enzymatic activity/volume ) 19 U/L 0-55 Serum or plasma protein measurement (mass/volume) 6.9 g/dL 6.4-8.2 Serum or plasma albumin measurement (mass/volume) 3.9 g/dL 3.2-4.5 Complete urinalysis with reflex to culture - 10/04/16 22:54 Urine color determination YELLOW NRG Urine clarity determination SLIGHTLY CLOUDY NRG Urine pH measurement by test strip 6.5 5 -9 Specific gravity of urine by test strip 1.015 1.016-1.022 Urine protein assay by test strip, semi-quantitative 1+ NEGATIVE Urine glucose detection by automated test strip NEGATIVE NEGATIVE Erythrocytes detection in urine sediment by light microscopy NEGATIVE NEGATIVE Urine ketones detection by automated test strip NEGATIVE NEGATIVE Urine nitrite detection by test strip NEGATIVE NEGATIVE Urine total bilirubin detection by test strip NEGATIVE NEGATIVE Urine urobilinogen measurement by automated test strip (mass/volume) NORMAL NORMAL Urine leukocyte esterase detection by dipstick NEGATIVE NEGATIVE Automated urine sediment erythrocyte count by microscopy (number/high power field) NONE NRG Automated urine sediment leukocyte count by microscopy (number/high power field ) NONE NRG Bacteria detection in urine sediment by light microscopy NONE NRG Squamous epithelial cells detection in urine sediment by light microscopy RARE NRG Crystals detection in urine sediment by light microscopy NONE NRG Casts detection in urine sediment by light microscopy NONE NRG Mucus detection in urine sediment by light microscopy NEGATIVE NRG Complete urinalysis with reflex to culture NO NRG Complete blood count (CBC) with automated white blood cell (WBC) differential - 10/30/16 08:10 Blood leukocytes automated count (number/volume) 6.4 10*3/ uL 4.3-11.0 Blood erythrocytes automated count (number/volume) 3.30 10*6 /uL 4.35-5.85 Venous blood hemoglobin measurement (mass/volume) 10.7 g/dL 13.3-17.7 Blood hematocrit (volume fraction) 34 % 40-54 Automated erythrocyte mean corpuscular volume 104 [foz_us] 80-99 Automated erythrocyte mean corpuscular hemoglobin (mass per erythrocyte) 32 pg 25-34 Automated erythrocyte mean corpuscular hemoglobin concentration measurement ( mass/volume) 31 g/dL 32-36 Automated erythrocyte distribution width ratio 17.4 % 10.0-14.5 Automated blood platelet count (count/volume) 158 10*3/uL 130-400 Automated blood platelet mean volume measurement 10.6 [foz_ us] 7.4-10.4 Automated blood neutrophils/100 leukocytes 58 % 42-75 Automated blood lymphocytes/100 leukocytes 17 % 12-44 Blood monocytes/100 leukocytes 19 % 0-12 Automated blood eosinophils/100 leukocytes 5 % 0-10 Automated blood basophils/100 leukocytes 1 % 0-10 Blood neutrophils automated count (number/volume) 3.7 10*3 1.8-7.8 Blood lymphocytes automated count (number/volume) 1.1 10*3 1.0-4.0 Blood monocytes automated count (number/volume) 1.2 10*3 0.0-1.0 Automated eosinophil count 0.3 10*3/uL 0.0-0.3 Automated blood basophil count (count/volume) 0.1 10*3/uL 0.0-0.1 Blood lactic acid measurement (moles/volume) - 10/30/16 08:10 Blood lactic acid measurement (moles/volume) 0.75 mmol/L 0.50-2.00 Comprehensive metabolic panel - 10/30/16 08:10 Serum or plasma sodium measurement (moles/volume) 140 mmol/ L 135-145 Serum or plasma potassium measurement (moles/volume) 4.4 mmol/L 3.6-5.0 Serum or plasma chloride measurement (moles/volume) 108 mmol /L 98-107 Carbon dioxide 21 mmol/L 21-32 Serum or plasma anion gap determination (moles/volume) 11 mmol/L 5-14 Serum or plasma urea nitrogen measurement (mass/volume) 27 mg/dL 7-18 Serum or plasma creatinine measurement (mass/volume) 1.28 mg /dL 0.60-1.30 Serum or plasma urea nitrogen/creatinine mass ratio 21 NRG Serum or plasma creatinine measurement with calculation of estimated glomerular filtration rate 54 NRG Serum or plasma glucose measurement (mass/volume) 76 mg/dL 70-105 Serum or plasma calcium measurement (mass/volume) 8.8 mg/dL 8.5-10.1 Serum or plasma total bilirubin measurement (mass/volume) 2.2 mg/dL 0.1-1.0 Serum or plasma alkaline phosphatase measurement (enzymatic activity/volume) 86 U/L 40-136 Serum or plasma aspartate aminotransferase measurement (enzymatic activity/ volume) 19 U/L 5-34 Serum or plasma alanine aminotransferase measurement (enzymatic activity/volume ) 14 U/L 0-55 Serum or plasma protein measurement (mass/volume) 6.7 g/dL 6.4-8.2 Serum or plasma albumin measurement (mass/volume) 4.0 g/dL 3.2-4.5 Blood manual differential performed detection - 10/30/16 08:10 Blood monocytes/100 leukocytes 13 % NRG Manual blood segmented neutrophils/100 leukocytes 63 % NRG Blood band neutrophils/100 leukocytes 3 % NRG Manual blood lymphocytes/100 leukocytes 14 % NRG Manual eosinophils/100 leukocytes in nose 5 % NRG Manual blood basophils/100 leukocytes 2 % NRG Blood anisocytosis detection by light microscopy SLIGHT NRG Blood macrocytes detection by light microscopy SLIGHT NRG Blood ovalocytes detection by light microscopy SLIGHT NRG Serum or plasma lithium measurement (moles/volume) - 10/30/16 08:10 BNP level 447.7 pg/mL <100.0 Bacterial blood culture - 10/30/16 08:10 Bacterial blood culture NG NRG Sputum Gram stain - 10/30/16 08:55 Sputum Gram stain Few WBC's, and mixed bacterial kamla NRG Bacterial sputum culture - 10/30/16 08:55 Bacterial sputum culture NORMAL NRG PT panel in platelet poor plasma by coagulation assay - 10/30/16 08:58 Prothrombin time (PT) in platelet poor plasma by coagulation assay 32.3 s 12.2-14.7 INR in platelet poor plasma or blood by coagulation assay 3.2 0.8-1.4 Activated partial thromboplastin time (aPTT) in platelet poor plasma bycoagulation assay - 10/30/16 08:58 Activated partial thromboplastin time (aPTT) in platelet poor plasma bycoagulation assay 55 s 24-35 Bacterial blood culture - 10/30/16 08:58 FREE TEXT EXTERNAL SEE COMMENTS NRG QUANTITY OF GROWTH Isolated NRG Bacterial blood culture [id number] NR Complete urinalysis with reflex to culture - 10/30/16 09:27 Urine color determination YELLOW NRG Urine clarity determination SLIGHTLY CLOUDY NRG Urine pH measurement by test strip 6 5- 9 Specific gravity of urine by test strip 1.015 1.016-1.022 Urine protein assay by test strip, semi-quantitative 2+ NEGATIVE Urine glucose detection by automated test strip NEGATIVE NEGATIVE Erythrocytes detection in urine sediment by light microscopy 2+ NEGATIVE Urine ketones detection by automated test strip NEGATIVE NEGATIVE Urine nitrite detection by test strip NEGATIVE NEGATIVE Urine total bilirubin detection by test strip NEGATIVE NEGATIVE Urine urobilinogen measurement by automated test strip (mass/volume) NORMAL NORMAL Urine leukocyte esterase detection by dipstick NEGATIVE NEGATIVE Automated urine sediment erythrocyte count by microscopy (number/high power field) [HPF] NRG Automated urine sediment leukocyte count by microscopy (number/high power field ) RARE NRG Bacteria detection in urine sediment by light microscopy NEGATIVE NRG Crystals detection in urine sediment by light microscopy NONE NRG Casts detection in urine sediment by light microscopy PRESENT NRG Mucus detection in urine sediment by light microscopy NEGATIVE NRG Complete urinalysis with reflex to culture NO NRG Hyaline casts detection in urine sediment by light microscopy RARE NRG Capillary blood glucose measurement by glucometer (mass/volume) - 10/30/16 15: 04 Capillary blood glucose measurement by glucometer (mass/volume) 239 mg/dL 70-110 Capillary blood glucose measurement by glucometer (mass/volume) - 10/30/16 19: 43 Capillary blood glucose measurement by glucometer (mass/volume) 124 mg/dL 70-110 Complete blood count (CBC) with automated white blood cell (WBC) differential - 10/31/16 05:46 Blood leukocytes automated count (number/volume) 5.6 10*3/ uL 4.3-11.0 Blood erythrocytes automated count (number/volume) 2.96 10*6 /uL 4.35-5.85 Venous blood hemoglobin measurement (mass/volume) 9.8 g/dL 13.3-17.7 Blood hematocrit (volume fraction) 31 % 40-54 Automated erythrocyte mean corpuscular volume 105 [foz_us] 80-99 Automated erythrocyte mean corpuscular hemoglobin (mass per erythrocyte) 33 pg 25-34 Automated erythrocyte mean corpuscular hemoglobin concentration measurement ( mass/volume) 31 g/dL 32-36 Automated erythrocyte distribution width ratio 17.1 % 10.0-14.5 Automated blood platelet count (count/volume) 144 10*3/uL 130-400 Automated blood platelet mean volume measurement 10.7 [foz_ us] 7.4-10.4 Automated blood neutrophils/100 leukocytes 39 % 42-75 Automated blood lymphocytes/100 leukocytes 30 % 12-44 Blood monocytes/100 leukocytes 23 % 0-12 Automated blood eosinophils/100 leukocytes 7 % 0-10 Automated blood basophils/100 leukocytes 1 % 0-10 Blood neutrophils automated count (number/volume) 2.2 10*3 1.8-7.8 Blood lymphocytes automated count (number/volume) 1.7 10*3 1.0-4.0 Blood monocytes automated count (number/volume) 1.3 10*3 0.0-1.0 Automated eosinophil count 0.4 10*3/uL 0.0-0.3 Automated blood basophil count (count/volume) 0.0 10*3/uL 0.0-0.1 Comprehensive metabolic panel - 10/31/16 05:46 Serum or plasma sodium measurement (moles/volume) 139 mmol/ L 135-145 Serum or plasma potassium measurement (moles/volume) 4.6 mmol/L 3.6-5.0 Serum or plasma chloride measurement (moles/volume) 109 mmol /L 98-107 Carbon dioxide 21 mmol/L 21-32 Serum or plasma anion gap determination (moles/volume) 9 mmol/L 5-14 Serum or plasma urea nitrogen measurement (mass/volume) 27 mg/dL 7-18 Serum or plasma creatinine measurement (mass/volume) 1.21 mg /dL 0.60-1.30 Serum or plasma urea nitrogen/creatinine mass ratio 22 NRG Serum or plasma creatinine measurement with calculation of estimated glomerular filtration rate 57 NRG Serum or plasma glucose measurement (mass/volume) 70 mg/dL 70-105 Serum or plasma calcium measurement (mass/volume) 8.4 mg/dL 8.5-10.1 Serum or plasma total bilirubin measurement (mass/volume) 2.0 mg/dL 0.1-1.0 Serum or plasma alkaline phosphatase measurement (enzymatic activity/volume) 77 U/L 40-136 Serum or plasma aspartate aminotransferase measurement (enzymatic activity/ volume) 19 U/L 5-34 Serum or plasma alanine aminotransferase measurement (enzymatic activity/volume ) 13 U/L 0-55 Serum or plasma protein measurement (mass/volume) 6.1 g/dL 6.4-8.2 Serum or plasma albumin measurement (mass/volume) 3.5 g/dL 3.2-4.5 Capillary blood glucose measurement by glucometer (mass/volume) - 10/31/16 11: 26 Capillary blood glucose measurement by glucometer (mass/volume) 122 mg/dL 70-110 Capillary blood glucose measurement by glucometer (mass/volume) - 10/31/16 15: 59 Capillary blood glucose measurement by glucometer (mass/volume) 202 mg/dL 70-110 Capillary blood glucose measurement by glucometer (mass/volume) - 10/31/16 21: 02 Capillary blood glucose measurement by glucometer (mass/volume) 203 mg/dL 70-110 Capillary blood glucose measurement by glucometer (mass/volume) - 11/01/16 06: 27 Capillary blood glucose measurement by glucometer (mass/volume) 89 mg/dL 70-110 PT panel in platelet poor plasma by coagulation assay - 11/01/16 08:56 Prothrombin time (PT) in platelet poor plasma by coagulation assay 24.6 s 12.2-14.7 INR in platelet poor plasma or blood by coagulation assay 2.2 0.8-1.4 Capillary blood glucose measurement by glucometer (mass/volume) - 11/01/16 10: 49 Capillary blood glucose measurement by glucometer (mass/volume) 292 mg/dL 70-110 Vancomycin trough - 11/01/16 12:05 Vancomycin trough 10.5 ug/mL 10.0-20.0 Capillary blood glucose measurement by glucometer (mass/volume) - 11/01/16 14: 23 Capillary blood glucose measurement by glucometer (mass/volume) 241 mg/dL 70-110 Capillary blood glucose measurement by glucometer (mass/volume) - 11/01/16 20: 56 Capillary blood glucose measurement by glucometer (mass/volume) 108 mg/dL 70-110 Capillary blood glucose measurement by glucometer (mass/volume) - 11/02/16 05: 30 Capillary blood glucose measurement by glucometer (mass/volume) 95 mg/dL 70-110 Automated blood complete blood count (hemogram) panel - 11/02/16 06:51 Blood leukocytes automated count (number/volume) 2.9 10*3/ uL 4.3-11.0 Blood erythrocytes automated count (number/volume) 2.93 10*6 /uL 4.35-5.85 Venous blood hemoglobin measurement (mass/volume) 9.3 g/dL 13.3-17.7 Blood hematocrit (volume fraction) 30 % 40-54 Automated erythrocyte mean corpuscular volume 103 [foz_us] 80-99 Automated erythrocyte mean corpuscular hemoglobin (mass per erythrocyte) 32 pg 25-34 Automated erythrocyte mean corpuscular hemoglobin concentration measurement ( mass/volume) 31 g/dL 32-36 Automated erythrocyte distribution width ratio 16.7 % 10.0-14.5 Automated blood platelet count (count/volume) 110 10*3/uL 130-400 Automated blood platelet mean volume measurement 10.4 [foz_ us] 7.4-10.4 PT panel in platelet poor plasma by coagulation assay - 11/02/16 06:51 Prothrombin time (PT) in platelet poor plasma by coagulation assay 20.0 s 12.2-14.7 INR in platelet poor plasma or blood by coagulation assay 1.7 0.8-1.4 Comprehensive metabolic panel - 11/02/16 06:51 Serum or plasma sodium measurement (moles/volume) 139 mmol/ L 135-145 Serum or plasma potassium measurement (moles/volume) 4.1 mmol/L 3.6-5.0 Serum or plasma chloride measurement (moles/volume) 107 mmol /L 98-107 Carbon dioxide 25 mmol/L 21-32 Serum or plasma anion gap determination (moles/volume) 7 mmol/L 5-14 Serum or plasma urea nitrogen measurement (mass/volume) 20 mg/dL 7-18 Serum or plasma creatinine measurement (mass/volume) 1.07 mg /dL 0.60-1.30 Serum or plasma urea nitrogen/creatinine mass ratio 19 NRG Serum or plasma creatinine measurement with calculation of estimated glomerular filtration rate > NRG Serum or plasma glucose measurement (mass/volume) 94 mg/dL 70-105 Serum or plasma calcium measurement (mass/volume) 8.1 mg/dL 8.5-10.1 Serum or plasma total bilirubin measurement (mass/volume) 1.5 mg/dL 0.1-1.0 Serum or plasma alkaline phosphatase measurement (enzymatic activity/volume) 74 U/L 40-136 Serum or plasma aspartate aminotransferase measurement (enzymatic activity/ volume) 28 U/L 5-34 Serum or plasma alanine aminotransferase measurement (enzymatic activity/volume ) 19 U/L 0-55 Serum or plasma protein measurement (mass/volume) 5.9 g/dL 6.4-8.2 Serum or plasma albumin measurement (mass/volume) 3.4 g/dL 3.2-4.5 Capillary blood glucose measurement by glucometer (mass/volume) - 11/02/16 10: 48 Capillary blood glucose measurement by glucometer (mass/volume) 266 mg/dL 70-110 Capillary blood glucose measurement by glucometer (mass/volume) - 11/02/16 14: 17 Capillary blood glucose measurement by glucometer (mass/volume) 209 mg/dL 70-110 Capillary blood glucose measurement by glucometer (mass/volume) - 11/02/16 20: 33 Capillary blood glucose measurement by glucometer (mass/volume) 72 mg/dL 70-110 Capillary blood glucose measurement by glucometer (mass/volume) - 11/03/16 05: 27 Capillary blood glucose measurement by glucometer (mass/volume) 67 mg/dL 70-110 PT panel in platelet poor plasma by coagulation assay - 11/03/16 08:00 Prothrombin time (PT) in platelet poor plasma by coagulation assay 18.1 s 12.2-14.7 INR in platelet poor plasma or blood by coagulation assay 1.5 0.8-1.4 Serum or plasma lithium measurement (moles/volume) - 11/03/16 08:00 BNP level 221.2 pg/mL <100.0 Capillary blood glucose measurement by glucometer (mass/volume) - 11/03/16 09: 45 Capillary blood glucose measurement by glucometer (mass/volume) 108 mg/dL 70-110 Capillary blood glucose measurement by glucometer (mass/volume) - 11/03/16 15: 55 Capillary blood glucose measurement by glucometer (mass/volume) 237 mg/dL 70-110 Capillary blood glucose measurement by glucometer (mass/volume) - 11/03/16 20: 15 Capillary blood glucose measurement by glucometer (mass/volume) 333 mg/dL 70-110 Automated blood complete blood count (hemogram) panel - 11/04/16 05:00 Blood leukocytes automated count (number/volume) 1.2 10*3/ uL 4.3-11.0 Blood erythrocytes automated count (number/volume) 3.07 10*6 /uL 4.35-5.85 Venous blood hemoglobin measurement (mass/volume) 9.8 g/dL 13.3-17.7 Blood hematocrit (volume fraction) 31 % 40-54 Automated erythrocyte mean corpuscular volume 100 [foz_us] 80-99 Automated erythrocyte mean corpuscular hemoglobin (mass per erythrocyte) 32 pg 25-34 Automated erythrocyte mean corpuscular hemoglobin concentration measurement ( mass/volume) 32 g/dL 32-36 Automated erythrocyte distribution width ratio 15.9 % 10.0-14.5 Automated blood platelet count (count/volume) 103 10*3/uL 130-400 Automated blood platelet mean volume measurement 11.0 [foz_ us] 7.4-10.4 PT panel in platelet poor plasma by coagulation assay - 11/04/16 05:00 Prothrombin time (PT) in platelet poor plasma by coagulation assay 17.6 s 12.2-14.7 INR in platelet poor plasma or blood by coagulation assay 1.5 0.8-1.4 Comprehensive metabolic panel - 11/04/16 05:00 Serum or plasma sodium measurement (moles/volume) 132 mmol/ L 135-145 Serum or plasma potassium measurement (moles/volume) 4.0 mmol/L 3.6-5.0 Serum or plasma chloride measurement (moles/volume) 98 mmol/ L 98-107 Carbon dioxide 25 mmol/L 21-32 Serum or plasma anion gap determination (moles/volume) 9 mmol/L 5-14 Serum or plasma urea nitrogen measurement (mass/volume) 33 mg/dL 7-18 Serum or plasma creatinine measurement (mass/volume) 1.15 mg /dL 0.60-1.30 Serum or plasma urea nitrogen/creatinine mass ratio 29 NRG Serum or plasma creatinine measurement with calculation of estimated glomerular filtration rate > NRG Serum or plasma glucose measurement (mass/volume) 325 mg/dL 70-105 Serum or plasma calcium measurement (mass/volume) 8.3 mg/dL 8.5-10.1 Serum or plasma total bilirubin measurement (mass/volume) 1.4 mg/dL 0.1-1.0 Serum or plasma alkaline phosphatase measurement (enzymatic activity/volume) 77 U/L 40-136 Serum or plasma aspartate aminotransferase measurement (enzymatic activity/ volume) 25 U/L 5-34 Serum or plasma alanine aminotransferase measurement (enzymatic activity/volume ) 20 U/L 0-55 Serum or plasma protein measurement (mass/volume) 6.2 g/dL 6.4-8.2 Serum or plasma albumin measurement (mass/volume) 3.4 g/dL 3.2-4.5 Capillary blood glucose measurement by glucometer (mass/volume) - 11/04/16 05: 51 Capillary blood glucose measurement by glucometer (mass/volume) 327 mg/dL 70-110 Influenza virus A and B antigen detection - 11/04/16 06:17 FLU RESULT NEGATIVE FOR INFLUENZA A AND B ANTIGENS BY IA NR Capillary blood glucose measurement by glucometer (mass/volume) - 11/04/16 11: 25 Capillary blood glucose measurement by glucometer (mass/volume) 351 mg/dL 70-110 Capillary blood glucose measurement by glucometer (mass/volume) - 11/04/16 14: 05 Capillary blood glucose measurement by glucometer (mass/volume) 411 mg/dL 70-110 Capillary blood glucose measurement by glucometer (mass/volume) - 11/04/16 20: 04 Capillary blood glucose measurement by glucometer (mass/volume) 335 mg/dL 70-110 Blood CBC with ordered manual differential panel - 11/05/16 04:45 Blood leukocytes automated count (number/volume) 4.4 10*3/ uL 4.3-11.0 Blood erythrocytes automated count (number/volume) 3.21 10*6 /uL 4.35-5.85 Venous blood hemoglobin measurement (mass/volume) 10.3 g/dL 13.3-17.7 Blood hematocrit (volume fraction) 32 % 40-54 Automated erythrocyte mean corpuscular volume 99 [foz_us] 80-99 Automated erythrocyte mean corpuscular hemoglobin (mass per erythrocyte) 32 pg 25-34 Automated erythrocyte mean corpuscular hemoglobin concentration measurement ( mass/volume) 33 g/dL 32-36 Automated erythrocyte distribution width ratio 15.8 % 10.0-14.5 Automated blood platelet count (count/volume) 104 10*3/uL 130-400 Automated blood platelet mean volume measurement 10.4 [foz_ us] 7.4-10.4 Automated blood neutrophils/100 leukocytes 65 % 42-75 Automated blood lymphocytes/100 leukocytes 24 % 12-44 Blood monocytes/100 leukocytes 7 % NRG Automated blood eosinophils/100 leukocytes 0 % 0-10 Automated blood basophils/100 leukocytes 0 % 0-10 Blood neutrophils automated count (number/volume) 2.8 10*3 1.8-7.8 Blood lymphocytes automated count (number/volume) 1.1 10*3 1.0-4.0 Blood monocytes automated count (number/volume) 0.5 10*3 0.0-1.0 Automated eosinophil count 0.0 10*3/uL 0.0-0.3 Automated blood basophil count (count/volume) 0.0 10*3/uL 0.0-0.1 Manual blood segmented neutrophils/100 leukocytes 71 % NRG Blood band neutrophils/100 leukocytes 6 % NRG Manual blood lymphocytes/100 leukocytes 16 % NRG Manual eosinophils/100 leukocytes in nose 0 % NRG Manual blood basophils/100 leukocytes 0 % NRG Blood anisocytosis detection by light microscopy SLIGHT NRG Blood ovalocytes detection by light microscopy SLIGHT NRG Blood poikilocytosis detection by light microscopy SLIGHT NRG Blood hypochromia detection by light microscopy SLIGHT NRG Blood alexandr cells detection by light microscopy SLIGHT NRG PT panel in platelet poor plasma by coagulation assay - 11/05/16 04:45 Prothrombin time (PT) in platelet poor plasma by coagulation assay 22.8 s 12.2-14.7 INR in platelet poor plasma or blood by coagulation assay 2.0 0.8-1.4 Comprehensive metabolic panel - 11/05/16 04:45 Serum or plasma sodium measurement (moles/volume) 138 mmol/ L 135-145 Serum or plasma potassium measurement (moles/volume) 3.8 mmol/L 3.6-5.0 Serum or plasma chloride measurement (moles/volume) 103 mmol /L 98-107 Carbon dioxide 25 mmol/L 21-32 Serum or plasma anion gap determination (moles/volume) 10 mmol/L 5-14 Serum or plasma urea nitrogen measurement (mass/volume) 40 mg/dL 7-18 Serum or plasma creatinine measurement (mass/volume) 1.02 mg /dL 0.60-1.30 Serum or plasma urea nitrogen/creatinine mass ratio 39 NRG Serum or plasma creatinine measurement with calculation of estimated glomerular filtration rate > NRG Serum or plasma glucose measurement (mass/volume) 140 mg/dL 70-105 Serum or plasma calcium measurement (mass/volume) 8.7 mg/dL 8.5-10.1 Serum or plasma total bilirubin measurement (mass/volume) 1.0 mg/dL 0.1-1.0 Serum or plasma alkaline phosphatase measurement (enzymatic activity/volume) 76 U/L 40-136 Serum or plasma aspartate aminotransferase measurement (enzymatic activity/ volume) 24 U/L 5-34 Serum or plasma alanine aminotransferase measurement (enzymatic activity/volume ) 20 U/L 0-55 Serum or plasma protein measurement (mass/volume) 6.3 g/dL 6.4-8.2 Serum or plasma albumin measurement (mass/volume) 3.6 g/dL 3.2-4.5 Capillary blood glucose measurement by glucometer (mass/volume) - 11/05/16 05: 20 Capillary blood glucose measurement by glucometer (mass/volume) 164 mg/dL 70-110 Capillary blood glucose measurement by glucometer (mass/volume) - 11/05/16 10: 43 Capillary blood glucose measurement by glucometer (mass/volume) 276 mg/dL 70-110 Encounters ACCT No. Visit Date/Time Discharge Status Pt. Type Provider Facility Loc./Unit Complaint [id number] 10/30/2016 11:05:00 2016 14:10:00 DIS Inpatient KELLY BEDOLLA MD [facility] 4TH PNEUMONIA VOLUME OVERLOAD [id number] 10/04/2016 21:10:00 2016 01:06:00 DIS Emergency PRATIBHA SWEENEY, KALANI Bravo [facility] ER FALL [id number] 06/23/2015 10:53:00 2015 00:01:00 DIS Outpatient ELIZABETH SHIELDS [facility] ONC [id number] 04/01/2015 09:45:00 2014 00:01:00 DIS Outpatient ELIZABETH SHIELDS [facility] ONC LAB [id number] 12/31/2014 10:51:00 2014 00:01:00 DIS Outpatient ELIZABETH SHIELDS [facility] ONC LAB [id number] 11/07/2014 17:34:00 2014 18:30:00 DIS Inpatient KELLY BEDOLLA MD [facility] 4TH 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 [id number] 03/22/2014 14:05:00 2013 00:01:00 DIS Outpatient ELIZABETH SHIELDS [facility] ONC LAB [id number] 03/22/2014 14:02:00 2013 23:59:59 CLS Outpatient BERTA JONES [facility] ONC [id number] 01/13/2014 08:51:00 2013 12:15:00 DIS Outpatient TANO HERNANDEZ MD [facility] SDC DYSPHAGIA [id number] 01/06/2014 07:16:00 2013 23:59:59 CLS Outpatient TANO HERNANDEZ MD [facility] PREOP DYSPHAGIA [id number] 12/09/2013 08:54:00 2013 23:59:59 CLS Outpatient CASPER DELVALLE MD [facility] PREOP DYSPHAGIA [id number] 08/04/2013 10:21:00 2013 00:01:00 DIS Outpatient ELIZABETH SHIELDS [facility] ONC LAB [id number] 07/22/2013 10:16:00 2012 23:59:59 CLS Outpatient CARMELO ADAME MD [facility] RAD CAD,COPD,HLP,A-FIB,CHF [id number] 07/06/2013 12:07:00 2012 23:59:59 CLS Outpatient DEVANG MONSON MD [facility] RAD HEMOPTYSIS [id number] 06/26/2013 13:53:00 2012 23:59:59 CLS Outpatient CARMELO ADAME MD [facility] RAD CAD,ATRIAL FIB [id number] 05/18/2013 10:03:00 2012 23:59:59 CLS Outpatient ELIZABETH SHIELDS [facility] ONC [id number] 02/24/2013 08:58:00 2012 23:59:59 CLS Outpatient DEVANG MONSON MD [facility] RAD SOB, EMPHYSEMA [id number] 02/18/2013 08:30:00 2012 23:59:59 CLS Outpatient DEVANG MONSON MD [facility] RT COPD [id number] 12/04/2012 13:47:00 2012 00:01:00 DIS Outpatient ELIZABETH SHIELDS [facility] ONC LAB [id number] 12/31/2012 11:00:00 2012 23:59:59 CLS Outpatient DEVANG MONSON MD [facility] RAD CONTUSION,L HIP PAIN [id number] 10/08/2016 11:18:00 ACT Outpatient CRISTIANO FERRARI APRN [facility] RAD LEFT SHOULDER PAIN [id number] 09/27/2016 12:48:00 ACT Outpatient ELIZABETH SHIELDS Pradip [facility] ONC [id number] 09/27/2016 11:17:00 ACT Outpatient KELLY BEDOLLA MD [facility] RAD SOB [id number] 09/05/2016 11:39:00 ACT Outpatient KAHLIL CHERY METER CALIBRATOR [facility] RAD LEFT SHOULDER PAIN [id number] 09/03/2016 11:17:00 ACT Outpatient KAHLIL CHERY METER CALIBRATOR [facility] RAD L SHOULDER PAIN [id number] 08/13/2016 13:21:00 ACT Outpatient CRISTIANO FERRARI APRN [facility] RAD LEFT HAND 5TH DIGIT PAIN [id number] 06/22/2016 15:39:00 ACT Outpatient KELLY BEDOLLA MD [facility] RAD TB SCREENING [id number] 03/29/2016 13:32:00 ACT Outpatient BERTA JONES METER CALIBRATOR [facility] ONC [id number] 02/13/2016 12:20:00 ACT Outpatient CARMELO ADAME MD [facility] RAD DISORDER OF BONE [id number] 07/28/2015 08:01:00 ACT Outpatient CRISTIANO FERRARI APRN [facility] RAD ELEVATED D DIMER,SHORTNESS OF BREATH [id number] 07/27/2015 14:18:00 ACT Outpatient CRISTIANO FERRARI APRN [facility] RAD ELEVATED D DIMER,SHORTNESS OF BREATH [id number] 07/26/2015 12:35:00 ACT Outpatient CRISTIANO FERRARI APRN [facility] RAD SOB [id number] 07/11/2012 13:29:00 Document Registration [id number] 04/15/2012 10:14:00 Document Registration [id number] 04/15/2012 09:54:00 Document Registration [id number] 11/01/2011 12:50:00 Document Registration [id number] 11/01/2011 12:15:00 Document Registration [id number] 08/02/2011 12:59:00 Document Registration [id number] 05/22/2011 08:29:00 Document Registration [id number] 04/23/2011 09:50:00 Document Registration [id number] 02/14/2011 09:25:00 Document Registration [id number] 07/15/2010 11:10:00 Document Registration
--- OUTSIDE RECORDS SUMMARY | 2016-11-18 04:08 | XMS REPORT | Continuity of Care Document ---
Author Author [facility] Organization [facility] Address Unknown Phone Unavailable Care Team Providers Care Forensic Sergeant Name Role Phone Gabrielle Sky PCP [phone] Source Comments Some departments are not documenting in the electronic medical record. If you do not see the information that you expected, contact Release of Information in the Health Information Management department at [phone] for further assistance in locating additional records.[facility] Active Allergies and Adverse Reactions Allergen Noted [...] 16 Active Problems Problem Noted Date Paraparesis ([facility]) 07/19/2015 Myelopathy ([facility]) 07/19/2015 Abnormal MRI, thoracic spine [...] Taken Blood Pressure 115/61 08/16/2015 10:12 AM MOBILE PARAMEDICAL EXAMINER Pulse 61 08/16/2015 10:12 AM MOBILE PARAMEDICAL EXAMINER Temperature 36.4 C (97.5 F) 08/16/2015 10:12 AM MOBILE PARAMEDICAL EXAMINER Respiratory Rate 18 08/16/2015 10:12 AM MOBILE PARAMEDICAL EXAMINER Height 1.829 m (6') 08/16/2015 10:12 AM MOBILE PARAMEDICAL EXAMINER Weight 95.255 kg (210 lb) 08/16/2015 10:12 AM MOBILE PARAMEDICAL EXAMINER Body Mass Index 28.47 08/16/2015 10:12 AM MOBILE PARAMEDICAL EXAMINER Oxygen Saturation 94% 08/16/2015 10:12 AM MOBILE PARAMEDICAL EXAMINER Plan of Care Health Maintenance Due Date Last Done Comments Physical (Comprehensive) 11/23/1938 Exam Pertussis Vaccine 11/23/1942 Tetanus Vaccine 11/23/1948 Dilated Eye Exam 11/23/1949 Foot Exam 11/23/1949 Hba1c 11/23/1949 Microalbumin 11/23/1949 Shingles Vaccine 1991 Prevnar/Pneumovax (#1) 11/23/1996 Influenza Vaccine 04/05/2017 Results from Last 3 Months Not on file
--- OUTSIDE RECORDS SUMMARY | 2016-11-18 04:10 | XMS REPORT | Continuity of Care Document ---
Author Author [facility] Organization [facility] Address Unknown Phone Unavailable Allergies Active Description Code Type Severity Reaction Onset Reported/Identified Relationship to Patient Clinical Status Yes iodine [id number] Drug Allergy Mild N/A 01/06/2009 Yes sitagliptin [id number] Drug Allergy Mild N/A 02/27/2009 Medications Problems [...] (CURRENT) USE OF INSULIN 02/20/2011 Ot V58.69 [facility],LT,CURRENT USE 02/20/2011 Ot V87.41 PERSONAL HISTORY [...] STUMBLI 11/10/2014 KELLY BEDOLLA MD Ot V06.1 [id number], COMBINED [ 11/10/2014 KELLY BEDOLLA MD Ot [...] 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, EXTRANODAL SOLID OR 03/31/2015 CRONELIUS, BOBAN N Ot 285.9 ANEMIA NOS 03/31/2015 [...] FERRARI APRN Ot R06.02 08/16/2015 CRISTIANO FERRARI DRY ICE MACHINE OPERATOR Ot R91.8 08/18/2015 CRISTIANO FERRARI APRN Ot J43.9 08/18/2015 CRISTIANO FERRARI APRN Ot J90 08/24/2015 CRISTIANO FERRARI DRY ICE MACHINE OPERATOR Ot R06.02 08/24/2015 CRISTIANO FERRARI DRY ICE MACHINE OPERATOR Ot R91.8 08/24/2015 CRISTIANO FERRARI DRY ICE MACHINE OPERATOR Ot J43.9 08/24/2015 CRISTIANO FERRARI DRY ICE MACHINE OPERATOR Ot J90 09/21/2015 ELIZABETH SHIELDS N Ot 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 09/21/2015 ELIZABETH SHIELDS N Ot 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 09/21/2015 ELIZABETH SHIELDS N Ot G62.9 POLYNEUROPATHY, UNSPECIFIED 09/21/2015 ELIZABETH SHIELDS N Ot I48.91 UNSPECIFIED ATRIAL FIBRILLATION 09/21/2015 ELIZABETH SHIELDS N Ot N18.3 CHRONIC KIDNEY DISEASE, STAGE 3 (MODERAT 09/21/2015 ELIZABETH SHIELDS N Ot Z23 ENCOUNTER FOR IMMUNIZATION 09/21/2015 ELIZABETH SHIELDS N Ot Z79.899 OTHER [facility] (CURRENT) DRUG THERAPY 09/21/2015 ELIZABETH SHIELDS N Ot Z92.21 PERSONAL HISTORY OF ANTINEOPLASTIC CHEMO 02/15/2016 CARMELO ADAME MD Ot I25.10 ATHSCL HEART DISEASE OF [place] CORONARY 02/15/2016 CARMELO ADAME MD Ot I50.9 HEART FAILURE, UNSPECIFIED 02/15/2016 CARMELO ADAME MD Ot M89.9 DISORDER OF BONE, UNSPECIFIED 03/23/2016 CARMELO ADAME MD Ot I25.10 ATHSCL HEART DISEASE OF [place] CORONARY 03/23/2016 CARMELO ADAME MD Ot I50.9 HEART FAILURE, UNSPECIFIED 03/23/2016 CARMELO ADAME MD Ot M89.9 DISORDER OF BONE, UNSPECIFIED 04/02/2016 CARMELO ADAME MD Ot I25.10 ATHSCL HEART DISEASE OF [place] CORONARY 04/02/2016 CARMELO ADAME MD Ot I50.9 HEART FAILURE, UNSPECIFIED 04/02/2016 CARMELO ADAME MD Ot M89.9 DISORDER OF BONE, UNSPECIFIED 04/02/2016 BERTA JONES Ot 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 04/02/2016 BERTA JONESP Ot 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 04/02/2016 JONES, HILAH S ANIMAL ASSISTANT Ot G62.9 POLYNEUROPATHY, UNSPECIFIED 04/02/2016 JONES BERTA Arriaza ANIMAL ASSISTANT Ot I48.91 UNSPECIFIED ATRIAL FIBRILLATION 04/02/2016 JONES BERTA Arriaza ANIMAL ASSISTANT Ot N18.3 CHRONIC KIDNEY DISEASE, STAGE 3 ( MODERAT 04/02/2016 BERTA JONES Arsalan ANIMAL ASSISTANT Ot Z79.899 OTHER [facility] (CURRENT) DRUG THERAPY 04/02/2016 BERTA JONES ANIMAL ASSISTANT Ot Z92.21 PERSONAL HISTORY OF ANTINEOPLASTIC CHEMO 04/20/2016 BERTA JONES ANIMAL ASSISTANT Ot 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 04/20/2016 KAREN BERTA Arriaza ANIMAL ASSISTANT Ot 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 04/20/2016 BERTA JONES ANIMAL ASSISTANT Ot G62.9 POLYNEUROPATHY, UNSPECIFIED 04/20/2016 LAWANDA JONESMARQUEZ Arsalan ANIMAL ASSISTANT Ot I48.91 UNSPECIFIED ATRIAL FIBRILLATION 04/20/2016 BERTA JONES ANIMAL ASSISTANT Ot N18.3 CHRONIC KIDNEY DISEASE, STAGE 3 ( MODERAT 04/20/2016 LAWANDA JONESMARQUEZ Arriaza ANIMAL ASSISTANT Ot Z79.899 OTHER CARE PROGRAM DIRECTOR (CURRENT) DRUG THERAPY 04/20/2016 KAREN BERTA Arriaza ANIMAL ASSISTANT Ot Z92.21 PERSONAL HISTORY OF ANTINEOPLASTIC CHEMO 04/25/2016 BERTA JONES ANIMAL ASSISTANT Ot 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 04/25/2016 BERTA JONES Arsalan ANIMAL ASSISTANT Ot 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 04/25/2016 BERTA JONES Arsalan ANIMAL ASSISTANT Ot G62.9 POLYNEUROPATHY, UNSPECIFIED 04/25/2016 LAWANDA JONESMARQUEZ Arriaza ANIMAL ASSISTANT Ot I48.91 UNSPECIFIED ATRIAL FIBRILLATION 04/25/2016 LAWANDA JONESMARQUEZ Arriaza ANIMAL ASSISTANT Ot N18.3 CHRONIC KIDNEY DISEASE, STAGE 3 ( MODERAT 04/25/2016 LAWANDA JONESMARQUEZ Arriaza ANIMAL ASSISTANT Ot Z79.899 OTHER [facility] (CURRENT) DRUG THERAPY 04/25/2016 KAREN BERTA S ANIMAL ASSISTANT Ot Z92.21 PERSONAL HISTORY OF ANTINEOPLASTIC CHEMO [...] V72.84 EXAM PRE-OPERATIVE NOS 06/25/2016 BERTA JONES ANIMAL ASSISTANT Ot 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, EXTRANODAL SOLID OR 06/25/2016 BERTA JONES ANIMAL ASSISTANT Ot 356.9 IDIO PERIPH NEURPTHY NOS 06/25/2016 BERTA JONES ANIMAL ASSISTANT Ot 427.31 ATRIAL FIBRILLATION 06/25/2016 BERTA JONES ANIMAL ASSISTANT Ot 585.3 CHRONIC KIDNEY DISEASE, STAGE III ( MODER 06/25/2016 BERTA JONES ANIMAL ASSISTANT Ot V58.61 ANTICOAGULANTS,LT,CURRENT USE 06/25/2016 BERTA JONESP Ot V58.69 OTH MED,LT,CURRENT USE 06/25/2016 BERTA JONES ANIMAL ASSISTANT Ot V87.41 PERSONAL HISTORY OF ANTINEOPLASTIC CHEMO 06/25/2016 CRISTIANO FERRARI DRY ICE MACHINE OPERATOR Ot R06.02 SHORTNESS OF BREATH 06/25/2016 CRISTIANO FERRARI DRY ICE MACHINE OPERATOR Ot R91.8 OTHER NONSPECIFIC ABNORMAL FINDING OF [place] 06/25/2016 CRISTIANO FERRARI DRY ICE MACHINE OPERATOR Ot R06.02 SHORTNESS OF BREATH 06/25/2016 CRISTIANO FERRARI DRY ICE MACHINE OPERATOR Ot J43.9 EMPHYSEMA, UNSPECIFIED 06/25/2016 CRISTIANO FERRARI DRY ICE MACHINE OPERATOR Ot J90 PLEURAL EFFUSION, NOT ELSEWHERE CLASSIFI 06/25/2016 ELIZABETH SHIELDS Ot 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 06/25/2016 ELIZABETH SHIELDS Ot 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 06/25/2016 ELIZABETH SHIELDS Ot G62.9 POLYNEUROPATHY, UNSPECIFIED 06/25/2016 ELIZABETH SHIELDS Ot I48.91 UNSPECIFIED ATRIAL FIBRILLATION 06/25/2016 ELIZABETH SHIELDS Ot N18.3 CHRONIC KIDNEY DISEASE, STAGE 3 (MODERAT 06/25/2016 ELIZABETH SHIELDS Ot Z23 ENCOUNTER FOR IMMUNIZATION 06/25/2016 ELIZABETH SHIELDS Ot Z79.899 OTHER CARE PROGRAM DIRECTOR (CURRENT) DRUG THERAPY 06/25/2016 ELIZABETH SHIELDS Ot Z92.21 PERSONAL HISTORY OF ANTINEOPLASTIC CHEMO 06/25/2016 BERTA JONES ANIMAL ASSISTANT Ot 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 06/25/2016 BERTA JONES ANIMAL ASSISTANT Ot 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 06/25/2016 BERTA JONES ANIMAL ASSISTANT Ot G62.9 POLYNEUROPATHY, UNSPECIFIED 06/25/2016 BERTA JONES ANIMAL ASSISTANT Ot I48.91 UNSPECIFIED ATRIAL FIBRILLATION 06/25/2016 BERTA JONES ANIMAL ASSISTANT Ot N18.3 CHRONIC KIDNEY DISEASE, STAGE 3 ( MODERAT 06/25/2016 BERTA JONES ANIMAL ASSISTANT Ot Z79.899 OTHER [facility] (CURRENT) DRUG THERAPY 06/25/2016 BERTA JONES ANIMAL ASSISTANT Ot Z92.21 PERSONAL HISTORY OF ANTINEOPLASTIC CHEMO 06/25/2016 DEEP SWEENEY, CARMELO Lucero Ot I25.10 ATHSCL HEART DISEASE OF [place] CORONARY 06/25/2016 CARMELO ADAME MD Ot I50.9 [...] MONSON MD Ot 492.8 EMPHYSEMA NEC 08/13/2016 DEVANG MONSON MD Ot 786.05 [...] V72.84 EXAM PRE-OPERATIVE NOS 08/13/2016 BERTA JONES ANIMAL ASSISTANT Ot 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, EXTRANODAL SOLID OR 08/13/2016 BERTA JONES ANIMAL ASSISTANT Ot 356.9 IDIO PERIPH NEURPTHY NOS 08/13/2016 BERTA JONES ANIMAL ASSISTANT Ot 427.31 ATRIAL FIBRILLATION 08/13/2016 BERTA JONES ANIMAL ASSISTANT Ot 585.3 CHRONIC KIDNEY DISEASE, STAGE III ( MODER 08/13/2016 BERTA JONES ANIMAL ASSISTANT Ot V58.61 ANTICOAGULANTS,LT,CURRENT USE 08/13/2016 BERTA JONES ANIMAL ASSISTANT Ot V58.69 OTH MED,LT,CURRENT USE 08/13/2016 BERTA JONES S ANIMAL ASSISTANT Ot V87.41 PERSONAL HISTORY OF ANTINEOPLASTIC CHEMO 08/13/2016 VEGA, CRISTIANO M DRY ICE MACHINE OPERATOR Ot R06.02 SHORTNESS OF BREATH 08/13/2016 CRISTIANO FERRARI DRY ICE MACHINE OPERATOR Ot R91.8 OTHER NONSPECIFIC ABNORMAL FINDING OF [place] 08/13/2016 CRISTIANO FERRARI DRY ICE MACHINE OPERATOR Ot R06.02 SHORTNESS OF BREATH 08/13/2016 CRISTIANO FERRARI DRY ICE MACHINE OPERATOR Ot J43.9 EMPHYSEMA, UNSPECIFIED 08/13/2016 CRISTIANO FERRARI DRY ICE MACHINE OPERATOR Ot J90 PLEURAL EFFUSION, NOT ELSEWHERE CLASSIFI 08/13/2016 CORNELIUS, ELIZABETH N Ot 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 08/13/2016 CORNELIUS BOBAN N Ot 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 08/13/2016 CORNELIUS BOBAN N Ot G62.9 POLYNEUROPATHY, UNSPECIFIED 08/13/2016 CORNELIUS BOBAN N Ot I48.91 UNSPECIFIED ATRIAL FIBRILLATION 08/13/2016 CORNELIUS BOBAN N Ot N18.3 CHRONIC KIDNEY DISEASE, STAGE 3 (MODERAT 08/13/2016 CORNELIUSELIZABETH OHARA N Ot Z23 ENCOUNTER FOR IMMUNIZATION 08/13/2016 CORNELIUS BOBMILLER N Ot Z79.899 OTHER CARE PROGRAM DIRECTOR (CURRENT) DRUG THERAPY 08/13/2016 CORNELIUS BOBAN N Ot Z92.21 PERSONAL HISTORY OF ANTINEOPLASTIC CHEMO 08/13/2016 BERTA JONES ANIMAL ASSISTANT Ot 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 08/13/2016 BERTA JONES ANIMAL ASSISTANT Ot 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 08/13/2016 BERTA JONES ANIMAL ASSISTANT Ot G62.9 POLYNEUROPATHY, UNSPECIFIED 08/13/2016 BERTA JONES ANIMAL ASSISTANT Ot I48.91 UNSPECIFIED ATRIAL FIBRILLATION 08/13/2016 BERTA JONES ANIMAL ASSISTANT Ot N18.3 CHRONIC KIDNEY DISEASE, STAGE 3 ( MODERAT 08/13/2016 BERTA JONES ANIMAL ASSISTANT Ot Z79.899 OTHER [facility] (CURRENT) DRUG THERAPY 08/13/2016 BERTA JONES ANIMAL ASSISTANT Ot Z92.21 PERSONAL HISTORY OF ANTINEOPLASTIC CHEMO 08/13/2016 DEEP SWEENEY, CARMELO Lucero Ot I25.10 ATHSCL HEART DISEASE OF [place] CORONARY 08/13/2016 CARMELO ADAME MD Ot I50.9 HEART FAILURE, UNSPECIFIED 08/13/2016 CARMELO ADAME MD Ot M89.9 DISORDER OF BONE, UNSPECIFIED 08/13/2016 CHIOMA SWEENEY, KELLY Sylvester Ot Z11.1 ENCOUNTER FOR SCREENING FOR RESPIRATORY 08/31/2016 CRISTIANO FERRARI DRY ICE MACHINE OPERATOR Ot M79.645 PAIN IN LEFT FINGER(S) 09/06/2016 CRISTIANO FERRARI DRY ICE MACHINE OPERATOR Ot M79.645 PAIN IN LEFT FINGER(S) 09/06/2016 KAHLIL CHERY ANIMAL ASSISTANT Ot M25.512 PAIN IN LEFT SHOULDER 09/26/2016 ELIZABETH SHIELDS N Ot 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 09/26/2016 CORNELIUS, BOBAN N Ot 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 09/26/2016 CORNELIUS BOBAN N Ot G62.9 POLYNEUROPATHY, UNSPECIFIED 09/26/2016 CORNELIUS BOBAN N Ot I48.91 UNSPECIFIED ATRIAL FIBRILLATION 09/26/2016 CORNELIUS BOBAN N Ot N18.3 CHRONIC KIDNEY DISEASE, STAGE 3 (MODERAT 09/26/2016 CORNELIUS BOBAN N Ot Z23 ENCOUNTER FOR IMMUNIZATION 09/26/2016 CORNELIUS BOBAN N Ot Z79.899 OTHER [facility] (CURRENT) DRUG THERAPY 09/26/2016 CORNELIUS, BOBAN N Ot Z92.21 PERSONAL HISTORY OF ANTINEOPLASTIC CHEMO 09/26/2016 KAHLIL CHERY ANIMAL ASSISTANT Ot M25.512 PAIN IN LEFT SHOULDER 09/26/2016 KAHLIL CHERY ANIMAL ASSISTANT Ot M25.512 PAIN IN LEFT SHOULDER 09/27/2016 CHIOMA SWEENEY, KELLY Sylvester Ot R06.02 SHORTNESS OF BREATH 10/01/2016 ELIZABETH SHIELDS N Ot 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, UNSP 10/01/2016 CORNELIUS BOBAN N Ot 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 10/01/2016 CORNELIUS BOBAN N Ot G62.9 POLYNEUROPATHY, UNSPECIFIED 10/01/2016 CORNELIUS BOBAN N Ot I48.91 UNSPECIFIED ATRIAL FIBRILLATION 10/01/2016 CORNEILUS BOBAN N Ot N18.3 CHRONIC KIDNEY DISEASE, STAGE 3 (MODERAT 10/01/2016 CORNELIUS BOBAN N Ot Z23 ENCOUNTER FOR IMMUNIZATION 10/01/2016 CORNELIUS BOBAN N Ot Z79.899 OTHER CARE PROGRAM DIRECTOR (CURRENT) DRUG THERAPY 10/01/2016 ELIZABETH SHIELDS Pradip Ot Z92.21 PERSONAL HISTORY OF ANTINEOPLASTIC CHEMO 10/04/2016 KAHLIL CHERY Ot M25.512 PAIN IN LEFT SHOULDER 10/04/2016 KAHLIL CHERY Ot M25.512 PAIN IN LEFT SHOULDER 10/05/2016 KALANI MCKINNON MD, Ot G37.3 ACUTE TRANSVERSE MYELITIS IN DEMYELINATI 10/05/2016 KALANI MCKINNON MD, Ot G62.9 POLYNEUROPATHY, UNSPECIFIED 10/05/2016 KALANI MCKINNON MD, Ot I10 ESSENTIAL (PRIMARY) HYPERTENSION 10/05/2016 KALANI MCKINNON MD, Ot I25.10 ATHSCL HEART DISEASE OF [place] CORONARY 10/05/2016 KALANI MCKINNON MD, Ot M47.812 [...] MCKINNON MD Ot Y92.[address] IN SNF PLACE 10/05/2016 KALANI MCKINNON MD, Ot Y99.8 OTHER EXTERNAL CAUSE STATUS 10/05/2016 KALANI MCKINNON MD, Ot Z79.01 [facility] (CURRENT) USE OF ANTICOAGULANT 10/05/2016 KALANI MCKINNON MD, Ot Z79.4 [facility] (CURRENT) USE OF INSULIN 10/05/2016 KALANI MCKINNON MD, Ot Z79.899 OTHER CARE PROGRAM DIRECTOR (CURRENT) DRUG THERAPY 10/05/2016 KALANI MCKINNON MD, Ot Z95.1 PRESENCE OF AORTOCORONARY BYPASS GRAFT 10/05/2016 KALANI MCKINNON MD, Ot Z95.828 PRESENCE OF OTHER VASCULAR IMPLANTS AND 10/05/2016 KALANI MCKINNON MD, Ot G37.3 ACUTE TRANSVERSE MYELITIS IN [place]I 10/05/2016 KALANI MCKINNON MD, Ot G62.9 POLYNEUROPATHY, UNSPECIFIED 10/05/2016 KALANI MCKINNON MD, Ot I10 ESSENTIAL (PRIMARY) HYPERTENSION 10/05/2016 KALANI MCKINNON MD, Ot I25.10 ATHSCL HEART DISEASE OF [place] CORONARY 10/05/2016 KALANI MCKINNON MD, Ot M47.812 [...] MCKINNON MD, Ot Y92.[address] SNF PLACE 10/05/2016 KALANI MCKINNON MD, Ot Y99.8 OTHER EXTERNAL CAUSE STATUS 10/05/2016 KALANI MCKINNON MD, Ot Z79.01 [facility] (CURRENT) USE OF ANTICOAGULANT 10/05/2016 KALANI MCKINNON MD, Ot Z79.4 CARE PROGRAM DIRECTOR (CURRENT) USE OF INSULIN 10/05/2016 KALANI MCKINNON MD, Ot Z79.899 OTHER [facility] (CURRENT) DRUG THERAPY 10/05/2016 KALANI MCKINNON MD, [...] MD, Ot I25.10 ATHSCL HEART DISEASE OF [place] CORONARY 10/10/2016 KALANI MCKINNON MD, Ot M47.812 SPONDYLOSIS W/O MYELOPATHY OR RADICULOPA 10/10/2016 KALANI MCKINNON MD, Ot 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/O MYELOPATHY OR RADICULOPATHY 10/10/2016 KALANI MCKINONN MD, Ot M85.89 OT DISRD OF BONE [...] MCKINNON MD Ot Y92.[address] IN SNF PLACE 10/10/2016 KALANI MCKINNON MD Ot Y99.8 OTHER EXTERNAL CAUSE STATUS 10/10/2016 KALANI MCKINNON MD, Ot Z79.01 CARE PROGRAM DIRECTOR (CURRENT) USE OF ANTICOAGULANT 10/10/2016 KALANI MCKINNON MD Ot Z79.4 CARE PROGRAM DIRECTOR (CURRENT) USE OF INSULIN 10/10/2016 KALANI MCKINNON MD, Ot Z79.899 OTHER CARE PROGRAM DIRECTOR (CURRENT) DRUG THERAPY 10/10/2016 KALANI MCKINNON MD, [...] Ot E819.9 TRAFFIC ACC NOS-PERS NOS 10/30/2016 DEVANG MONSON MD Ot [address] [...] V72.84 EXAM PRE-OPERATIVE NOS 10/30/2016 BERTA JONES ANIMAL ASSISTANT Ot 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, EXTRANODAL SOLID OR 10/30/2016 BERTA JONES ANIMAL ASSISTANT Ot 356.9 IDIO PERIPH NEURPTHY NOS 10/30/2016 BERTA JONES ANIMAL ASSISTANT Ot 427.31 ATRIAL FIBRILLATION 10/30/2016 BERTA JONES ANIMAL ASSISTANT Ot 585.3 CHRONIC KIDNEY DISEASE, STAGE III ( MODER 10/30/2016 BERTA JONES ANIMAL ASSISTANT Ot V58.61 ANTICOAGULANTS,LT,CURRENT USE 10/30/2016 BERTA JONES ANIMAL ASSISTANT Ot V58.69 OTH MED,LT,CURRENT USE 10/30/2016 BERTA JONES ANIMAL ASSISTANT Ot V87.41 PERSONAL HISTORY OF ANTINEOPLASTIC CHEMO 10/30/2016 CRISTIANO FERRARI DRY ICE MACHINE OPERATOR Ot R06.02 SHORTNESS OF BREATH 10/30/2016 CRISTIANO FERRARI DRY ICE MACHINE OPERATOR Ot R91.8 OTHER NONSPECIFIC ABNORMAL FINDING OF [place] 10/30/2016 CRISTIANO FERRARI DRY ICE MACHINE OPERATOR Ot R06.02 SHORTNESS OF BREATH 10/30/2016 CRISTIANO FERRARI DRY ICE MACHINE OPERATOR Ot J43.9 EMPHYSEMA, UNSPECIFIED 10/30/2016 CRISTIANO FERRARI DRY ICE MACHINE OPERATOR Ot J90 PLEURAL EFFUSION, NOT ELSEWHERE CLASSIFI 10/30/2016 ELIZABETH SHIELDS Pradip Ot 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, UNSP 10/30/2016 ELIZABETH SHIELDS N Ot 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 10/30/2016 ELIZABETH SHIELDS N Ot G62.9 POLYNEUROPATHY, UNSPECIFIED 10/30/2016 ELIZABETH SHIELDS N Ot I48.91 UNSPECIFIED ATRIAL FIBRILLATION 10/30/2016 ELIZABETH SHIELDS N Ot N18.3 CHRONIC KIDNEY DISEASE, STAGE 3 (MODERAT 10/30/2016 ELIZABETH SHIELDS N Ot Z23 ENCOUNTER FOR IMMUNIZATION 10/30/2016 ELIZABETH SHIELDS N Ot Z79.899 OTHER [facility] (CURRENT) DRUG THERAPY 10/30/2016 ELIZABETH SHIELDS N Ot Z92.21 PERSONAL HISTORY OF ANTINEOPLASTIC CHEMO 10/30/2016 BERTA JONES ANIMAL ASSISTANT Ot 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 10/30/2016 BERTA JONES ANIMAL ASSISTANT Ot 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 10/30/2016 BERTA JONES ANIMAL ASSISTANT Ot G62.9 POLYNEUROPATHY, UNSPECIFIED 10/30/2016 BERTA JONES ANIMAL ASSISTANT Ot I48.91 UNSPECIFIED ATRIAL FIBRILLATION 10/30/2016 BERTA JONES ANIMAL ASSISTANT Ot N18.3 CHRONIC KIDNEY DISEASE, STAGE 3 ( MODERAT 10/30/2016 BERTA JONES ANIMAL ASSISTANT Ot Z79.899 OTHER CARE PROGRAM DIRECTOR (CURRENT) DRUG THERAPY 10/30/2016 BERTA JONES ANIMAL ASSISTANT Ot Z92.21 PERSONAL HISTORY OF ANTINEOPLASTIC CHEMO 10/30/2016 DEEP SWEENEY, CARMELO Lucero Ot I25.10 ATHSCL HEART DISEASE OF [place] CORONARY 10/30/2016 DEEP SWEENEY, CARMELO Lucero Ot I50.9 HEART FAILURE, UNSPECIFIED 10/30/2016 CARMELO ADAME MD Ot M89.9 DISORDER OF BONE, UNSPECIFIED 10/30/2016 CHIOMA SWEENEY, KELLY Sylvester Ot Z11.1 ENCOUNTER FOR SCREENING FOR RESPIRATORY 10/30/2016 CRISTIANO FERRARI APRN Ot M79.645 PAIN IN LEFT FINGER(S) 10/30/2016 KAHLIL CHERY ANIMAL ASSISTANT Ot M25.512 PAIN IN LEFT SHOULDER 10/30/2016 KAHLIL CHERY ANIMAL ASSISTANT Ot M25.512 PAIN IN LEFT SHOULDER 10/30/2016 KELLY BEDOLLA MD Ot R06.02 SHORTNESS OF BREATH 10/30/2016 CRISTIANO FERRARI DRY ICE MACHINE OPERATOR Ot M25.512 PAIN IN LEFT SHOULDER 11/01/2016 CRISTIANO FERRARI DRY ICE MACHINE OPERATOR Ot M25.512 PAIN IN LEFT SHOULDER 11/05/2016 [...] HEART DISEASE WITH HEART FA 11/05/2016 KELLY BEDOLLA MD Ot I25.10 ATHSCL HEART DISEASE OF [place] CORONARY 11/05/2016 KELLY BEDOLLA MD Ot I48.91 [...] RESUSCITATE 11/05/2016 KELLY BEDOLLA MD Ot Z79.01 [facility] (CURRENT) USE OF ANTICOAGULANT 11/05/2016 KELLY BEDOLLA MD Ot Z79.4 [facility] (CURRENT) USE OF INSULIN 11/05/2016 KELLY BEDOLLA [...] OF GROWTH Isolated NRG Bacterial blood culture [id number] NR Complete urinalysis with reflex to culture [...] Status Pt. Type Provider Facility Loc./Unit Complaint [id number] 10/30/2016 11:05:00 2016 14:10:00 DIS Inpatient KELLY BEDOLLA MD [facility] 4TH PNEUMONIA VOLUME OVERLOAD [id number] 10/04/2016 21:10:00 2016 01:06:00 DIS Emergency PRATIBHA SWEENEY, KALANI Bravo [facility] ER FALL [id number] 06/23/2015 10:53:00 2015 00:01:00 DIS Outpatient ELIZABETH SHIELDS [facility] ONC [id number] 04/01/2015 09:45:00 2014 00:01:00 DIS Outpatient ELIZABETH SHIELDS [facility] ONC LAB [id number] 12/31/2014 10:51:00 2014 00:01:00 DIS Outpatient ELIZABETH SHIELDS [facility] ONC LAB [id number] 11/07/2014 17:34:00 2014 18:30:00 DIS Inpatient KELLY BEDOLLA MD [facility] 4TH 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 [id number] 03/22/2014 14:05:00 2013 00:01:00 DIS Outpatient ELIZABETH SHIELDS [facility] ONC LAB [id number] 03/22/2014 14:02:00 2013 23:59:59 CLS Outpatient BERTA JONES [facility] ONC [id number] 01/13/2014 08:51:00 2013 12:15:00 DIS Outpatient TANO HERNANDEZ MD [facility] SDC DYSPHAGIA [id number] 01/06/2014 07:16:00 2013 23:59:59 CLS Outpatient TANO HERNANDEZ MD [facility] PREOP DYSPHAGIA [id number] 12/09/2013 08:54:00 2013 23:59:59 CLS Outpatient CASPER DELVALLE MD [facility] PREOP DYSPHAGIA [id number] 08/04/2013 10:21:00 2013 00:01:00 DIS Outpatient ELIZABETH SHIELDS [facility] ONC LAB [id number] 07/22/2013 10:16:00 2012 23:59:59 CLS Outpatient CARMELO ADAME MD [facility] RAD CAD,COPD,HLP,A-FIB,CHF [id number] 07/06/2013 12:07:00 2012 23:59:59 CLS Outpatient DEVANG MONSON MD [facility] RAD HEMOPTYSIS [id number] 06/26/2013 13:53:00 2012 23:59:59 CLS Outpatient CARMELO ADAME MD [facility] RAD CAD,ATRIAL FIB [id number] 05/18/2013 10:03:00 2012 23:59:59 CLS Outpatient ELIZABETH SHIELDS [facility] ONC [id number] 02/24/2013 08:58:00 2012 23:59:59 CLS Outpatient DEVANG MONSON MD [facility] RAD SOB, EMPHYSEMA [id number] 02/18/2013 08:30:00 2012 23:59:59 CLS Outpatient DEVANG MONSON MD [facility] RT COPD [id number] 12/04/2012 13:47:00 2012 00:01:00 DIS Outpatient ELIZABETH SHIELDS [facility] ONC LAB [id number] 12/31/2012 11:00:00 2012 23:59:59 CLS Outpatient DEVANG MONSON MD [facility] RAD CONTUSION,L HIP PAIN [id number] 10/08/2016 11:18:00 ACT Outpatient CRISTIANO FERRARI APRN [facility] RAD LEFT SHOULDER PAIN [id number] 09/27/2016 12:48:00 ACT Outpatient ELIZABETH SHIELDS Pradip [facility] ONC [id number] 09/27/2016 11:17:00 ACT Outpatient KELLY BEDOLLA MD [facility] RAD SOB [id number] 09/05/2016 11:39:00 ACT Outpatient KAHLIL CHERY ANIMAL ASSISTANT [facility] RAD LEFT SHOULDER PAIN [id number] 09/03/2016 11:17:00 ACT Outpatient KAHLIL CHERY ANIMAL ASSISTANT [facility] RAD L SHOULDER PAIN [id number] 08/13/2016 13:21:00 ACT Outpatient CRISTIANO FERRARI APRN [facility] RAD LEFT HAND 5TH DIGIT PAIN [id number] 06/22/2016 15:39:00 ACT Outpatient KELLY BEDOLLA MD [facility] RAD TB SCREENING [id number] 03/29/2016 13:32:00 ACT Outpatient BERTA JONES ANIMAL ASSISTANT [facility] ONC [id number] 02/13/2016 12:20:00 ACT Outpatient CARMELO ADAME MD [facility] RAD DISORDER OF BONE [id number] 07/28/2015 08:01:00 ACT Outpatient CRISTIANO FERRARI APRN [facility] RAD ELEVATED D DIMER,SHORTNESS OF BREATH [id number] 07/27/2015 14:18:00 ACT Outpatient CRISTIANO FERRARI APRN [facility] RAD ELEVATED D DIMER,SHORTNESS OF BREATH [id number] 07/26/2015 12:35:00 ACT Outpatient CRISTIANO FERRARI APRN [facility] RAD SOB [id number] 07/11/2012 13:29:00 Document Registration [id number] 04/15/2012 10:14:00 Document Registration [id number] 04/15/2012 09:54:00 Document Registration [id number] 11/01/2011 12:50:00 Document Registration [id number] 11/01/2011 12:15:00 Document Registration [id number] 08/02/2011 12:59:00 Document Registration [id number] 05/22/2011 08:29:00 Document Registration [id number] 04/23/2011 09:50:00 Document Registration [id number] 02/14/2011 09:25:00 Document Registration [id number] 07/15/2010 11:10:00 Document Registration
== END 2016-11-05 14:10 | DRG 190 ==
LOC: EDUNIT# 08:04 → ER 08:05 → 4TH 11:05 → ENPENDDIS 11-05 10:00
PROVIDERS: ADMIT Family Medicine; ATTEND Family Medicine
DX: J44.0 Chronic obstructive pulmonary disease with (acute) lower respiratory infection (principal); J18.9 Pneumonia, unspecified organism; R09.02 Hypoxemia; G37.3 Acute transverse myelitis in demyelinating disease of central nervous system; C85.90 Non-Hodgkin lymphoma, unspecified, unspecified site; E11.42 Type 2 diabetes mellitus with diabetic polyneuropathy; I25.10 Atherosclerotic heart disease of native coronary artery without angina pectoris; I48.91 Unspecified atrial fibrillation; Z66 Do not resuscitate; I11.0 Hypertensive heart disease with heart failure; I50.9 Heart failure, unspecified; G47.30 Sleep apnea, unspecified; E78.00 Pure hypercholesterolemia, unspecified; K21.9 Gastro-esophageal reflux disease without esophagitis; M10.9 Gout, unspecified; M19.91 Primary osteoarthritis, unspecified site; H91.90 Unspecified hearing loss, unspecified ear; Z79.4 Long term (current) use of insulin; Z87.891 Personal history of nicotine dependence; Z95.5 Presence of coronary angioplasty implant and graft; Z87.828 Personal history of other (healed) physical injury and trauma; Z79.01 Long term (current) use of anticoagulants
CPT/HCPCS: 36415; 51702; 71010; 71020; 80053; 80202; 81000; 82962; 83605; 83880; 85007; 85025; 85027; 85610; 85730; 87040; 87070; 87077; 87205; 87804; 94640; 94660; 94760; 96365; 96375

== ENCOUNTER → 2016-12-24 | Outpatient (CLI) | payer MEDICARE ==
[~2016-12-24] MED LIST changes: +ACET-2469 PO; +ACET325T49 PO; +ATOR40TA70 PO; +BUDE10.2 IH; +CYAN10007 PO; +FOLI1TAB24 PO; +GUAI5SYR PO; +GUAI600T43 PO; +HYDR-3812 PO; +IPRA3AMP INH; +METH454P2 PO; +NEBU-140 MC; +POLY119P5 PO; +PRED10TA22 PO; +SUPER BEET PO; +TAMS0.4C2 PO; +WARF2TAB8 PO; +WARF4TAB9 PO
[2016-12-24 18:05] LABS: INR 1.2 (0.8-1.4); PROTHROMBIN TIME PATIENT 14.6 SEC (12.2-14.7)
[2016-12-24 20:16] LABS: BILIRUBIN,URINE NEGATIVE (NEGATIVE); KETONES,URINE NEGATIVE (NEGATIVE); LEUKOCYTE ESTERASE ,URINE NEGATIVE (NEGATIVE); NITRITE,URINE NEGATIVE (NEGATIVE); PH,URINE 6 (5-9); PROTEIN,URINE 2+ (NEGATIVE); UROBILINOGEN,URINE NORMAL (NORMAL)
[2016-12-24 20:43] LABS: WBC,URINE 0-2 /HPF
== END ==
LOC: CVS 17:42
PROVIDERS: ATTEND Nurse Practitioner Family
DX: I50.9 Heart failure, unspecified (principal)
CPT/HCPCS: 85610